=== PATIENT | male | born 1940 | race Caucasian/White ===

== ENCOUNTER 2024-12-08 16:28 | Inpatient (IN) | payer MEDICARE, SELFPAY ==
[2024-12-08] VITALS (9 sets, daily range): BP systolic 000–139; BP diastolic 00–63; PULSE 0–108; RESP 14–20; TEMP 36.8–36.9; O2SAT 0–100; BMI 22.4
--- NOTE | ~2024-12-08 | XR_ITS ---
EXAMINATION: XR CHEST CLINICAL INFORMATION: fever COMPARISON: None available. TECHNIQUE: Frontal view of the chest was obtained. FINDINGS: Pulmonary reticular pattern. Elevated left hemidiaphragm. No gross pleural effusion or pneumothorax. Cardiomediastinal silhouette demonstrates calcified plaque Arctic arch. Mild multilevel thoracic spondylosis. Degenerative changes shoulders. Gas filled prominent intestine no fully included. XR/XR chest 1V IMPRESSION: Chronic interstitial lung disease with questionable mild interstitial lung edema versus small airway inflammatory disease. Electronically signed by: Wilver Hernandez MD 12/11/2024 08:25 AM [facility]
--- NOTE | ~2024-12-08 | XR_ITS ---
EXAMINATION: XR CHEST 1 VIEW HISTORY: cough COMPARISON: Comparison is made with the prior examination dated 12/11/2024. FINDINGS: A single AP portable view of the chest performed at 9:43 AM is submitted. The lungs are expanded and clear. There is no pleural effusion, pneumothorax, or pulmonary vascular congestion. The heart is normal in size. There is mild degenerative disc disease of the spine. XR/XR chest 1V IMPRESSION: No acute cardiopulmonary abnormality. Electronically signed by: Rodri Lawson MD 12/15/2024 10:04 AM [facility]
--- NOTE | 2024-12-08 16:42 | ED_ITS ---
HPI - Altered Mental Status General Chief Complaint: Altered Mental Status Stated Complaint: aggressive behavior from snf Time Seen by Provider: 12/08/24 16:41 Source: patient Mode of arrival: ambulatory Limitations: no limitations History of Present Illness ED Provider: HPI narrative: Patient with history of dementia just released from [facility] where he was admitted from 12/02 till 12/08 for frequent falls workup was negative and sent to group home where he was aggressive to the staff and came back to the emergency room Related Data Allergies Allergy/AdvReac Type Severity Reaction Status Date / Time No Known Allergies Allergy Verified 12/08/24 17:54 Review of Systems 2 Review of Systems: Yes Unobtainable due to mental status PMF Social History Social History Unable to assess alcohol history related to: Unable to respond Use of substances other than those prescribed or required for medical reasons: Unable to respond Advance Directives: No Advance Directives Information Provided: No Physical Exam ED Vital Signs: Vital Signs - 24 hr 12/08/24 16:52 12/08/24 17:45 12/08/24 17:50 Temperature Pulse Rate 103 H 108 H 107 H Respiratory Rate 16 20 20 Blood Pressure 139/62 Pulse Oximetry 100 100 100 Oxygen Delivery Method Room Air Room Air Room Air 12/08/24 18:00 12/08/24 18:15 12/08/24 19:05 Temperature Pulse Rate 92 99 88 Respiratory Rate 16 14 16 Blood Pressure 134/63 118/54 L 110/59 L Pulse Oximetry 100 100 100 Oxygen Delivery Method Room Air Room Air Room Air 12/08/24 21:22 12/08/24 23:26 12/09/24 01:29 Temperature 98.5 F 98.2 F 98.8 F Pulse Rate 92 95 94 Respiratory Rate 18 16 18 Blood Pressure 107/51 L 116/53 L 118/50 L Pulse Oximetry 100 100 100 Oxygen Delivery Method Room Air Room Air Room Air BMI result Body Mass Index 22.4 Appearance: Alert. Oriented X1-2. No acute distress. Eyes: PERRLA, No Nystagmus ENT: Pharynx normal. Oral Mucosa moist Neck: Normal inspection. Neck supple. CVS: Normal heart rate and rhythm. Pulses normal. Respiratory: No respiratory distress. Equal air entry bilateral, no wheezing/rales/rhonchi Abdomen: Soft and nontender. Bowel sounds are present, no mass palpable, no CVA tenderness Skin: Skin warm and dry. Normal skin color. Normal skin turgor. Extremities: No lower extremity edema. No calf tenderness Neuro: Oriented X 1-2. No motor deficit. No sensory deficit.No cerebellar signs , cranial nerves II-XII intact Medications Administered Discontinued Medications Generic Name Dose Route Start Last Admin Trade Name Lorenzoq PRN Reason Stop Dose Admin Lorazepam 2 mg 12/08/24 17:28 12/08/24 17:30 Lorazepam 2 Mg/Ml Vial IM 12/08/24 17:29 2 mg ONCE ONE Administration Olanzapine 5 mg 12/08/24 17:15 12/08/24 17:21 Olanzapine 5 Mg Tablet PO 12/08/24 17:16 5 mg ONCE ONE Administration Medical Decision Making Medical Decision Making [facility] Narrative: Patient with dementia with psychotic behavior responded to olanzapine which was given in the ER. Will consult case team for placement Lab Data [facility] Lab Attestation statement: I reviewed the patient's lab results. 12/08/24 23:32 12/08/24 23:32 Labs: Lab Results 12/08/24 Range/Units 23:32 WBC 5.9 (4.8-10.8) X10*3/uL RBC 3.20 L (4.60-5.80) X10*6/uL Hgb 10.2 L (14.0-18.0) g/dl Hct 29.3 L (42.0-52.0) % MCV 91.6 (80.0-98.0) fL MCH 31.9 (27.0-33.0) pg MCHC 34.8 (31.0-36.0) g/dl RDW 13.2 (11.0-16.0) % Plt Count 191 (160-400) X10*3/uL MPV 9.7 (9.4-12.4) fL Immature Gran % (Auto) 0.3 (0.0-0.4) % Neut % (Auto) 55.5 (45-73) % Lymph % (Auto) 23.6 (20-40) % Quay % (Auto) 13.3 H (2-11) % Eos % (Auto) 7.0 H (0-4) % Baso % (Auto) 0.3 (0-2) % Lymph # (Auto) 1.4 (1.2-4.9) X10*3/uL Quay # (Auto) 0.8 (0.1-1.2) X10*3/uL Eos # (Auto) 0.4 (0.0-0.4) X10*3/uL Baso # (Auto) 0.0 (0.0-0.2) X10*3/uL Abs Immat Gran (auto) 0.02 (0.00-0.03) X10*3/uL Absolute Neuts (auto) 3.2 (2.0-8.3) x10*3/uL Absolute Nucleated RBC 0.000 (0.0-0.012) X10*3/uL Nucleated RBC % (auto) 0.0 (0.0-0.2) /100WBC Sodium 142 (135-145) mmol/L Potassium 3.8 (3.3-5.1) mmol/L Chloride 109 H (96-108) mmol/L Carbon Dioxide 27 (22-29) mmol/L Anion Gap 10 L (12-20) BUN 15 (9-16) mg/dL Creatinine 0.79 (0.5-1.4) mg/dL Estim Creat Clear Calc 63.8 Estimated GFR > 60 Random Glucose 117 H (60-115) mg/dL Calcium 8.5 (8.4-10.2) mg/dL Total Bilirubin 0.3 (0.0-1.0) mg/dL AST 27 (5-37) U/L ALT 22 (0-40) U/L Alkaline Phosphatase 107 (39-117) U/L Total Protein 5.8 L (6.5-8.0) g/dL Albumin 3.3 L (3.5-5.0) g/dL Independent Interpretation I performed an independent interpretation of an: EKG Interpretation: Normal sinus rhythm heart rate 91 beats per minute normal interval normal axis no acute STT wave changes no acute ischemia Discharge Plan Discharge Clinical Impression: Dementia of Alzheimer's type with behavioral disturbance Patient Disposition: Still a Patient Print Language: Moroccan
[2024-12-08] MEDS: OLANZapine 5 MG TABLET PO (17:21)
[2024-12-08] MEDS: LORazepam 2 MG/ML VIAL IM (17:30)
--- NOTE | 2024-12-08 17:30 | PC.NURSE ---
Pt. medicated with 2mg Ativan IM d/t aggression towards staff. Pt. completely unable to be redirected, wandering, swinging at and punching staff.
--- NOTE | 2024-12-08 17:31 | PC.NURSE ---
Soft restraints applied to FAYN wrists for pt. and staff safety. Jj Khan sitting at bedside.
--- NOTE | 2024-12-08 19:06 | PC.NURSE ---
assumed care of pt, soft restraints removed at this time, patient resting quietly no apparent distress, patient observer at bedside
--- NOTE | 2024-12-08 22:57 | ECG_ITS ---
Test Reason : ALTERED MENTAL STATUS Blood Pressure : */* mmHG Vent. Rate : 91 BPM Atrial Rate : 91 BPM P-R Int : 144 ms QRS Dur : 82 ms QT Int : 362 ms P-R-T Axes : 31 7 53 degrees QTcB Int : 445 ms Normal sinus rhythm Low voltage QRS Borderline ECG No previous ECGs available Referred By: Luke Mccormack Electronically Signed By: ABRAN IBRAHIM
[2024-12-08 23:37] LABS: MANUAL DIFF FLAG NO
[2024-12-08 23:38] LABS: Basophils Percent Auto 0.3 % (0-2); Eosinophils Absolute Auto 0.4 X10*3/uL (0.0-0.4); Hematocrit 29.3 % (42.0-52.0); Hemoglobin 10.2 g/dl (14.0-18.0); Imm Gran Abs Auto 0.02 X10*3/uL (0.00-0.03); Imm Gran Pct Auto 0.3 % (0.0-0.4); Lymphocytes Absolute Auto 1.4 X10*3/uL (1.2-4.9); Lymphocytes Percent Auto 23.6 % (20-40); Mean Corpuscular HGB Conc 34.8 g/dl (31.0-36.0); Mean Corpuscular Hemoglobin 31.9 pg (27.0-33.0); Mean Corpuscular Volume 91.6 fL (80.0-98.0); Mean Platelet Volume 9.7 fL (9.4-12.4); Monocytes Absolute Auto 0.8 X10*3/uL (0.1-1.2); Monocytes Percent Auto 13.3 % (2-11); Neutrophils Absolute Auto 3.2 x10*3/uL (2.0-8.3); Neutrophils Percent Auto 55.5 % (45-73); Platelet Count 191 X10*3/uL (160-400); Red Cell Distribution Width 13.2 % (11.0-16.0); White Blood Count 5.9 X10*3/uL (4.8-10.8)
[2024-12-08 23:55] LABS: Alanine Aminotransferase 22 U/L (0-40); Albumin Level 3.3 g/dL (3.5-5.0); Alkaline Phosphatase 107 U/L (39-117); Anion Gap 10 (12-20); Aspartate Amino Transferase 27 U/L (5-37); Bilirubin Total 0.3 mg/dL (0.0-1.0); Blood Urea Nitrogen 15 mg/dL (9-16); Calcium 8.5 mg/dL (8.4-10.2); Carbon Dioxide 27 mmol/L (22-29); Chloride 109 mmol/L (96-108); Creatinine Clr Calc Pharmacy 63.8; Estimated Glomerular Filt Rate > 60; Glucose Random 117 mg/dL (60-115); Potassium 3.8 mmol/L (3.3-5.1); Sodium 142 mmol/L (135-145); Total Protein 5.8 g/dL (6.5-8.0)
[2024-12-09] VITALS (9 sets, daily range): BP systolic 112–158; BP diastolic 46–77; PULSE 72–94; RESP 12–18; TEMP 36.4–37.1; O2SAT 95–100
--- NOTE | 2024-12-09 01:40 | PC.NURSE ---
patient incont of urine, bed changed and ashlee care provided
--- NOTE | 2024-12-09 07:19 | PC.NURSE ---
Incontinent of urine, changed and repositioned. calm and cooperative
--- NOTE | 2024-12-09 08:33 | PC.NURSE ---
Ambulated patient in hallway. Patient with steady gait. Returned to room, resting comfortably in bed
[2024-12-09] MEDS: Memantine HCl 5 MG TABLET PO ×2 (09:57→20:04)
[2024-12-09] MEDS: Escitalopram Oxalate 10 MG TABLET PO (09:57)
[2024-12-09] MEDS: Rivastigmine Tartrate 1.5 MG CAPSULE PO (09:57)
[2024-12-09 10:15] LABS: Appearance Urine Clear; Color Urine Yellow; Glucose Urine UA Negative (Negative); Leukocyte Esterase Urine Trace (Negative); Nitrite Urine Negative (Negative); PH 7.5 (5.0-9.0); UMIC TRIGGER UACC YES; Urine Blood Negative (Negative); Urine Ketones Negative (Negative); Urine Protein Negative (Neg-Trace)
[2024-12-09 10:20] LABS: Bacteria Urine 2+ (None Seen); Hyaline Casts Urine 0-2 /LPF (0-2); RBC Urine 0-2 /HPF (0-2); Squamous Epithelial Cell Urine 0-2 /HPF (0-2); WBC Urine 0-5 /HPF (0-5)
--- NOTE | 2024-12-09 10:49 | PHA.MEDREC ---
Pharmacy Consult ? Medication Reconciliation Pharmacy has completed the medication reconciliation. Spoke to pt's daughter Laurie to confirm meds. Per pt's daughter, only taking lexapro 10 mg daily, trazodone 50 mg @1630, b complex daily, mg 200 mg @1630.
--- NOTE | 2024-12-09 11:18 | MHC.CM.PN ---
CM RECEIVED ED CONSULT. PT LIVES WITH SPOUSE, DAUGHTER YORDY IS HCP/POA. ALL INFORMATION WAS GLEANED FROM DAUGHTER VIA TELEPHONE PT UNABLE TO PROVIDE HX. PER DAUGHTER, PT WAS IN OBS AT [facility] FOR 3-4 DAYS THEN DC YESTERDAY TO [facility] FOR STR. PT WAS ONLY THERE AN HOUR OR 2 AND BECAME AGITATED WITH STAFF, AGGRESSIVE. PT IS FUNCTIONALLY INDEPENDENT/TOILETS SELF BUT HAS BEEN EXPERIENCING FALLS OF LATE. PT HAS APHAGIA. DP: P.T. WILL EVAL PT TO DETERMINE NEEDS. PT WILL NEED TO BE FREE OF PRN ANTIPSYCHOTICS FOR PLACEMENT. RETURN REFERRAL SENT TO [facility]. PT WILL NEED BLS TRANSPORT. CM WILL CONTINUE TO FOLLOW.
[2024-12-09] MEDS: cefuroxime axetiL 500 MG TABLET PO ×2 (11:29→20:03)
[2024-12-09 12:22] LABS: Ammonia 26 umol/L (13-55)
[2024-12-09 12:56] LABS: TSH reflex Free T4 3.59 uIU/mL (0.32-4.0)
[2024-12-09] MEDS: traZODone HCL 50 MG TABLET PO (16:23)
[2024-12-09] MEDS: OLANZapine 5 MG TABLET PO (16:23)
--- NOTE | 2024-12-09 16:30 | PC.NURSE ---
Patient easily re-directable with occasional fluids/ food. Patient able to ambualte in hallway with assist.
[2024-12-09] MEDS: QUEtiapine Fumarate 25 MG TABLET PO ×2 (17:30→18:10)
--- NOTE | 2024-12-09 17:38 | PC.NURSE ---
Assisted to ambulate in hallway
[2024-12-09] MEDS: Magnesium Oxide 400 MG TABLET 200 MG PO (20:03)
[2024-12-10 06:27] VITALS: BP 99/67; PULSE 83; RESP 21; TEMP 36.2; O2SAT 95
[2024-12-10] MEDS: Escitalopram Oxalate 10 MG TABLET PO (11:44)
[2024-12-10] MEDS: Multivitamin TABLET 1 TAB PO (11:44)
[2024-12-10] MEDS: cefuroxime axetiL 500 MG TABLET PO ×2 (11:44→21:21)
[2024-12-10] MEDS: Memantine HCl 5 MG TABLET PO ×2 (11:44→21:20)
[2024-12-10 11:50] VITALS: BP 111/62; PULSE 76; RESP 18; TEMP 36.7; O2SAT 99
[2024-12-10] MEDS: Rivastigmine Tartrate 1.5 MG CAPSULE PO (16:13)
[2024-12-10] MEDS: traZODone HCL 50 MG TABLET PO (18:11)
[2024-12-10] MEDS: OLANZapine 5 MG TABLET PO (18:11)
[2024-12-10 18:15] VITALS: BP 115/55; PULSE 95; RESP 18; TEMP 36.8; O2SAT 96
[2024-12-10] MEDS: Magnesium Oxide 400 MG TABLET 200 MG PO (21:20)
[2024-12-10] MEDS: QUEtiapine Fumarate 25 MG TABLET PO (21:25)
[2024-12-10 22:30] VITALS: TEMP 37.6
--- NOTE | 2024-12-10 23:33 | PC.NURSE ---
camera placed in room. VMT called
[2024-12-11] VITALS (8 sets, daily range): BP systolic 105–151; BP diastolic 54–81; PULSE 82–109; RESP 12–20; TEMP 36.2–38.2; O2SAT 96–100
[2024-12-11] MEDS: OLANZapine 10 MG TABLET PO (02:57)
--- NOTE | 2024-12-11 06:04 | PC.NURSE ---
rectaly 100.7, slightly diaphoretic. MD tam notified. tylenol ordered, nasal swab ordered
[2024-12-11] MEDS: Acetaminophen 325 MG TABLET 975 MG PO (06:17)
[2024-12-11 06:49] LABS: Influenza A PCR NEGATIVE (Negative); Influenza B PCR NEGATIVE (Negative); Resp Syncy Virus RNA Qual PCR NEGATIVE (Negative); SARS COV2 PCR INHOUSE NEGATIVE (Negative)
[2024-12-11] MEDS: Lactated Ringers 1,000 ML 999 ML IV (07:22)
[2024-12-11 07:29] LABS: Basophils Percent Auto 0.3 % (0-2); Eosinophils Absolute Auto 0.1 X10*3/uL (0.0-0.4); Eosinophils Percent Auto 0.5 % (0-4); Hematocrit 38.1 % (42.0-52.0); Imm Gran Abs Auto 0.04 X10*3/uL (0.00-0.03); Imm Gran Pct Auto 0.4 % (0.0-0.4); Lymphocytes Absolute Auto 0.3 X10*3/uL (1.2-4.9); Lymphocytes Percent Auto 3.6 % (20-40); MANUAL DIFF FLAG SCAN; Mean Corpuscular HGB Conc 34.9 g/dl (31.0-36.0); Mean Platelet Volume 9.6 fL (9.4-12.4); Monocytes Absolute Auto 0.4 X10*3/uL (0.1-1.2); Monocytes Percent Auto 4.7 % (2-11); Neutrophils Absolute Auto 8.5 x10*3/uL (2.0-8.3); Neutrophils Percent Auto 90.5 % (45-73); Platelet Count 243 X10*3/uL (160-400); Red Blood Count 4.15 X10*6/uL (4.60-5.80); Red Cell Distribution Width 13.2 % (11.0-16.0); SCAN SMEAR FLAG 1; White Blood Count 9.4 X10*3/uL (4.8-10.8)
[2024-12-11 07:33] LABS: Hemoglobin 13.3 g/dl (14.0-18.0)
[2024-12-11 07:34] LABS: Mean Corpuscular Volume 91.8 fL (80.0-98.0)
[2024-12-11 07:41] LABS: Alanine Aminotransferase 78 U/L (0-40); Alkaline Phosphatase 108 U/L (39-117); Anion Gap 15 (12-20); Aspartate Amino Transferase 62 U/L (5-37); Bilirubin Direct 0.3 mg/dL (0.0-0.5); Bilirubin Total 0.9 mg/dL (0.0-1.0); Blood Urea Nitrogen 28 mg/dL (9-16); Calcium 9.6 mg/dL (8.4-10.2); Carbon Dioxide 30 mmol/L (22-29); Chloride 103 mmol/L (96-108); Creatinine Clr Calc Pharmacy 50.4; Estimated Glomerular Filt Rate > 60; Glucose Random 106 mg/dL (60-115); Potassium 4.5 mmol/L (3.3-5.1); Sodium 143 mmol/L (135-145); Total Protein 7.4 g/dL (6.5-8.0)
[2024-12-11 07:55] LABS: SLIDE REVIEW VERIFIED
--- NOTE | 2024-12-11 08:27 | PC.NURSE ---
assumed care of patient at 0700, patient is alert to self, wakes with verbal stimuli. per prev RN patient febrile, given tylenol. patient now afebrile, this RN started #20 in the L upper arm for LR bolus per DEC. resp even and unlabored, skin dry and intact. patient remains somnolant
[2024-12-11 08:55] LABS: CDiff Gene PCR NEGATIVE (Negative)
[2024-12-11] MEDS: cefuroxime axetiL 500 MG TABLET PO ×2 (09:12→20:16)
[2024-12-11] MEDS: Multivitamin TABLET 1 TAB PO (09:13)
[2024-12-11] MEDS: Escitalopram Oxalate 10 MG TABLET PO (09:13)
[2024-12-11] MEDS: Memantine HCl 5 MG TABLET PO ×2 (09:13→20:16)
--- NOTE | 2024-12-11 10:46 | PC.NURSE ---
patient moved into hospital bed for comfort, bed set in lowest position, safety alarm on, tele sitter in place
--- NOTE | 2024-12-11 14:52 | MHC.CM.ED ---
Patient remains in ER. Received notification this morning that patient might be admitted due to fever. Additional work up essentially negative. Psych consult ordered by Valeria MOY for medication recommendations d/t agitation. Clinical updates sent to [facility]. Continue to monitor for d/c needs.
[2024-12-11] MEDS: OLANZapine 5 MG TABLET PO (15:47)
[2024-12-11] MEDS: traZODone HCL 50 MG TABLET PO (15:47)
--- NOTE | 2024-12-11 15:56 | PC.NURSE ---
patient has remained afebrile, no other episodes of diarrhea. patient in hospital bed lowest locked position for safety. patient keeps repeating I love you and thank you. patient reassured he is safe and taken care of while in hospital. patient medicated per DEC, meds crushed in pudding.
--- NOTE | 2024-12-11 17:22 | PC.NURSE ---
this RN repositioned patient in bed, fed patient vanilla ice cream as requested. patient is awake and alert to self. resp even and unlabored.
--- NOTE | 2024-12-11 20:10 | PC.NURSE ---
called report to overflow RN January,
[2024-12-11] MEDS: Magnesium Oxide 400 MG TABLET 200 MG PO (20:16)
--- NOTE | 2024-12-11 22:31 | PC.NURSE ---
Patient arrived to overflow unit from ED. Patient confused but calm and sleeping. VSS, lungs clear on room air. Camera at bedside for safety. Repositioned patient to right side with pillows. Patient resting comfortably in bed at this time.
[2024-12-12] VITALS (8 sets, daily range): BP systolic 127–147; BP diastolic 56–70; PULSE 67–102; RESP 12–18; TEMP 36.5–36.8; O2SAT 93–98
[2024-12-12] MEDS: Multivitamin TABLET 1 TAB PO (08:48)
[2024-12-12] MEDS: QUEtiapine Fumarate 25 MG TABLET PO ×4 (08:48→21:21)
[2024-12-12] MEDS: Rivastigmine Tartrate 1.5 MG CAPSULE PO (08:48)
[2024-12-12] MEDS: Memantine HCl 5 MG TABLET PO (09:07)
[2024-12-12] MEDS: Escitalopram Oxalate 10 MG TABLET PO (09:07)
[2024-12-12] MEDS: cefuroxime axetiL 500 MG TABLET PO ×2 (09:07→20:27)
[2024-12-12 09:58] LABS: Appearance Urine Clear; Color Urine Yellow; Glucose Urine UA Negative (Negative); Leukocyte Esterase Urine Negative (Negative); Nitrite Urine Negative (Negative); PH 6.5 (5.0-9.0); Specific Gravity - Urine 1.025 (1.005-1.025); Urine Blood Negative (Negative); Urine Ketones Trace mg/dL (Negative); Urine Protein Trace mg/dL (Neg-Trace)
--- NOTE | 2024-12-12 11:06 | P.CNPS_ITS ---
History of Present Illness Date of Service: 12/12/2024 Chief Complaint: aggressive behavior from snf Reason for Consult: combative behaviors Discussed with referring provider: Yes Sources of Information: patient interviewed, chart reviewed and crisis/core team assessment reviewed HPI Narrative: Mr. Carney is an 84 year-old male with hx of dementia. He had been medically admitted to [facility] from 12/02-12/08/24 for medical work up for frequent falls and discharged to SNF for STR. He was sent back on the same day to [facility] due to combative behaviors. Pertinent labs include CBC with no leukocytosis, normocytic anemia on 12/08, repeat on 12/11 showed mild left shift, no leukocytosis. CMP without electrolyte abnormalities, BUN 15, Cr 0.79, creatinine clearance 63.8, LFT wnl. Repeat CMP on 12/11 showed increase BUN 28, Cr 1.00, mild elevation of LFT AST 62, ALT 78. He appeared to be dehydrated and was given IV lactated Ringer's 1000mls. UA was positive for bacteria, but no nitrites nor leukocytosis, culture was not completed but she was started on ceftin 500mg po BID. EKG with normal sinus rhythm, Qtc 445ms. Chest XR with chronic interstitial lung disease, with questionable interstitial lung edema. Pt seen in ED. His daughter, Laurie at bedside who provided most of collateral information. Pt presents with poor attention. He is not oriented to place, month, year, nor situation. He seems to have some difficulty recognizing his daughter or at least her name. He initially was asking to eat. He was not able to feed himself, getting confused if food was liquid o solid, grabing something, putting it down, grabbing something else. His speech with expressive and receptive aphasia. Per daughter, aphasia has been present for some years along with poor orientation and forgetfulness. She reports he was very sedated when he tried olanzapine scheduled. She reports tremors (although wonder if more myoclonus movement) with namenda and exelon as describes as visible jerk like movement of upper extremities. Past Psychiatric History: Inpt: none OP: none PCP prescribing psychotropic medications including olazanpine, seroquel, Medical Evaluation Reviewed: Yes Review of Systems Review of Systems Yes Unobtainable due to mental status Diagnostics Vital Signs (24Hr): Vital Signs - 24 hr 12/11/24 11:39 02/24/25 14:36 12/11/24 20:15 Temperature 98.4 F 97.2 F 98.6 F Pulse Rate 82 87 109 H Respiratory Rate 12 16 20 Blood Pressure 151/67 H 105/54 L 136/81 Pulse Oximetry 100 98 96 Oxygen Delivery Method Room Air Room Air Room Air 12/11/24 22:18 12/12/24 06:00 12/12/24 09:24 Temperature 98.2 F 98.0 F 97.7 F Pulse Rate 97 81 81 Respiratory Rate 16 16 16 Blood Pressure 110/78 130/64 128/65 Pulse Oximetry 98 98 98 Oxygen Delivery Method Room Air Room Air Room Air BMI result Body Mass Index 22.4 Labs 12/11/24 07:18 12/12/24 11:25 Labs: Laboratory Results - last 48 hr 12/11/24 12/11/24 12/11/24 06:07 07:09 07:18 WBC 9.4 RBC 4.15 L D Hgb 13.3 L D Hct 38.1 L D MCV 91.8 MCH 32.0 MCHC 34.9 RDW 13.2 Plt Count 243 D MPV 9.6 Immature Gran % (Auto) 0.4 Neut % (Auto) 90.5 H Lymph % (Auto) 3.6 L Josephine % (Auto) 4.7 Eos % (Auto) 0.5 Baso % (Auto) 0.3 Lymph # (Auto) 0.3 L Josephine # (Auto) 0.4 Eos # (Auto) 0.1 Baso # (Auto) 0.0 Abs Immat Gran (auto) 0.04 H Absolute Neuts (auto) 8.5 H Absolute Nucleated RBC 0.000 Nucleated RBC % (auto) 0.0 Smear Tech's Comments VERIFIED Sodium 143 Potassium 4.5 Chloride 103 Carbon Dioxide 30 H Anion Gap 15 BUN 28 H Creatinine 1.00 Estim Creat Clear Calc 50.4 Estimated GFR > 60 Random Glucose 106 Calcium 9.6 D Total Bilirubin 0.9 Direct Bilirubin 0.3 AST 62 H ALT 78 H Alkaline Phosphatase 108 Total Protein 7.4 Albumin 4.0 Urine Color Urine Appearance Urine pH Ur Specific [place] Urine Protein Urine Glucose (UA) Urine Ketones Urine Blood Urine Nitrite Ur Leukocyte Esterase C. difficile Tox B Gene NEGATIVE Influenza Type A (PCR) NEGATIVE Influenza Type B (PCR) NEGATIVE RSV RNA Qual (PCR) NEGATIVE SARS-CoV-2 RNA (RT-PCR) NEGATIVE 12/12/24 09:00 WBC RBC Hgb Hct MCV MCH MCHC RDW Plt Count MPV Immature Gran % (Auto) Neut % (Auto) Lymph % (Auto) Josephine % (Auto) Eos % (Auto) Baso % (Auto) Lymph # (Auto) Josephine # (Auto) Eos # (Auto) Baso # (Auto) Abs Immat Gran (auto) Absolute Neuts (auto) Absolute Nucleated RBC Nucleated RBC % (auto) Smear Tech's Comments Sodium Potassium Chloride Carbon Dioxide Anion Gap BUN Creatinine Estim Creat Clear Calc Estimated GFR Random Glucose Calcium Total Bilirubin Direct Bilirubin AST ALT Alkaline Phosphatase Total Protein Albumin Urine Color Yellow Urine Appearance Clear Urine pH 6.5 Ur Specific [place] 1.025 Urine Protein Trace Urine Glucose (UA) Negative Urine Ketones Trace Urine Blood Negative Urine Nitrite Negative Ur Leukocyte Esterase Negative C. difficile Tox B Gene Influenza Type A (PCR) Influenza Type B (PCR) RSV RNA Qual (PCR) SARS-CoV-2 RNA (RT-PCR) Imaging Radiology Impressions: ITS Impressions Chest X-Ray 12/11/24 06:56 IMPRESSION: Chronic interstitial lung disease with questionable mild interstitial lung edema versus small airway inflammatory disease. Electronically signed by: Wilver Hernandez MD 12/11/2024 08:25 AM [facility] Mental Status Exam Mental Status Exam Narrative: Appearance: wearing hospital gown, fair hygiene, thin, but not malnourished. In NAD but restless Behavior: poor attention at times looking at this scenario writer and saying I love you, attempting to kiss this scenario writer's hand Psychomotor: restless, not combative Speech: mumbles, regular tone/rhythm, spontaneous TP: expressive and some degree of receptive aphasia/ derailed TC: wanting food, to wanting to hold hands and kiss scenario writer Mood: good Affect: restless, periods of smiling, then mildly irritable SI: no HI: none VH/AH: appears internally preoccupied Delusions:somewhat suspicious Insight/judgment: impaired x2 Memory/cog: alert, not oriented to place, month year nor situation. Medications Medications Current Medications Cefuroxime Axetil (Cefuroxime Axetil 500 Mg Tablet) 500 mg PO BID GABRIELLA Last Admin: 12/12/24 09:07 Dose: 500 mg Escitalopram Oxalate (Escitalopram Oxalate 10 Mg Tablet) 10 mg PO DAILY [facility] Last Admin: 12/12/24 09:07 Dose: 10 mg Magnesium Oxide (Magnesium Oxide 400 Mg Tablet) 200 mg PO BEDTIME [facility] Last Admin: 12/11/24 20:16 Dose: 200 mg Memantine (Memantine Hcl 5 Mg Tablet) 5 mg PO BID [facility] Last Admin: 12/12/24 09:07 Dose: 5 mg Multivitamins/Vitamin C (Multivitamin Tablet) 1 tab PO DAILY [facility] Last Admin: 12/12/24 08:48 Dose: 1 tab Olanzapine (Olanzapine 5 Mg Tablet) 5 mg PO DAILY@1630 [facility] Last Admin: 12/11/24 15:47 Dose: 5 mg Quetiapine Fumarate (Quetiapine Fumarate 25 Mg Tablet) 25 mg PO DAILY PRN PRN Reason: Anxiety, agitation Last Admin: 12/12/24 08:48 Dose: 25 mg Rivastigmine Tartrate (Rivastigmine Tartrate 1.5 Mg Capsule) 1.5 mg PO DAILY [facility] Last Admin: 12/12/24 08:48 Dose: 1.5 mg Trazodone HCl (Trazodone Hcl 50 Mg Tablet) 50 mg PO DAILY@1630 [facility] Last Admin: 12/11/24 15:47 Dose: 50 mg Allergies Allergies Allergy/AdvReac Type Severity Reaction Status Date / Time No Known Allergies Allergy Verified 12/08/24 17:54 Assessment & Plan Assessment & Plan (1) Major neurocognitive disorder: Status: Acute Code(s): F03.90 - Unspecified dementia, unspecified severity, without behavioral disturbance, psychotic disturbance, mood disturbance, and anxiety (2) Delirium: Status: Acute Code(s): R41.0 - Disorientation, unspecified Plan Mr. Burnett is an 84 year-old male with hx of dementia, probably AD. He was brought via EMS same day he went to [facility] due to combative behaviors. He presents with s/s of delirium superimposed on dementia. He is currently now able to engage in STR due to increased confusions and poor attention r/t delirium. After discussing risks, benefits and alternative treatment options with daughter, who is HCP, agreed to d/c olanzapine as she reports he was overly sedated and dizzy,she also reports side effects with exelon and namenda and would like him to be off those two medications as well. Will scheduled seroquel 25mg po TID, add prn seroquel 25mg po q6h prn agitation. PLAN 1. continue management of delirium care- avoid oversedation, encourage proper hydration as he is not able to verbalize need for it and does need more assistance eating. 2. seroquel 25mg po TID, seroquel 25mg po q6h prn agitation, monitor oversedation, hold seroquel if pt oversedated. 3. Pt does not have capacity to make medical decisions- invoke HCP if one is available. 4. d/c exelon, d/c namenda per daughter he had side effects with these medications. Total time managing care of this patient today ____ minutes.
--- NOTE | 2024-12-12 12:02 | MHC.CM.ED ---
Patient remains in ER overflow. Received telephone call from patient's daughter, Laurie. Patient was at [facility] and d/c'd to [facility]. Within 2 hours patient returned to [facility] due to behaviors. Laurie feels patient doesn't need meds at home. Laurie also verbalizes she doesn't want the patient to receive Zyprexa because he gets all the side effects. T/W explained psych consult was pending with Jeny returned item clerk. Also explained Laurie's contact info would be provided to patient. Laurie feels the facility aggravated patient by having someone walk behind him with a wheelchair while he was walking around the unit. Staff also tried to get patient back to his room by grabbing his arm, and patient didn't like that. Continue to monitor for d/c needs.
[2024-12-12 12:03] LABS: Albumin Level 3.7 g/dL (3.5-5.0); Alkaline Phosphatase 104 U/L (39-117); Anion Gap 11 (12-20); Aspartate Amino Transferase 53 U/L (5-37); Bilirubin Total 0.6 mg/dL (0.0-1.0); Blood Urea Nitrogen 28 mg/dL (9-16); Calcium 8.9 mg/dL (8.4-10.2); Carbon Dioxide 25 mmol/L (22-29); Chloride 108 mmol/L (96-108); Creatinine Clr Calc Pharmacy 63.8; Estimated Glomerular Filt Rate > 60; Glucose Random 78 mg/dL (60-115); Potassium 4.2 mmol/L (3.3-5.1); Sodium 140 mmol/L (135-145); Total Protein 6.9 g/dL (6.5-8.0)
[2024-12-12 12:34] LABS: Alanine Aminotransferase 66 U/L (0-40)
[2024-12-12 14:32] LABS: Ammonia 29 umol/L (13-55)
[2024-12-12] MEDS: traZODone HCL 50 MG TABLET PO (16:24)
[2024-12-12] MEDS: Magnesium Oxide 400 MG TABLET 200 MG PO (20:27)
--- NOTE | 2024-12-12 21:59 | PC.NURSE ---
assumed care of pt 1930, pt is on constant trying to get oob, able to verbally redirect for few minutes and pt back to removing clothing and getting oob. bed alarm and vmt on, tech is on constant 1:1 with pt for safety, given 2100 dose of po seroquel with minimal effect, credit charge authorizer made aware of need for 1:1. given prn 1 hour after with no affect. pt continues to be restless and now becoming agitated. grocery packer and Donna MOY made aware.
[2024-12-12] MEDS: OLANZapine 10 MG TABLET PO (22:11)
--- NOTE | 2024-12-12 22:38 | PC.NURSE ---
rachael reported did not note pt urinated since their shift at 1500, this RN did not note any urinary incontinence since arrival at 1930. offered pt urinal multiple times with uo. bladder scan showed >614 mL. mar brown made aware. verbal order for straight cath. 400mL removed. pt became combative during cath. pt now resting in bed, tech on 1:1 and vmt/bed alarm on.
[2024-12-12] MEDS: Ziprasidone Mesylate 20 MG VIAL 10 MG IM (23:00)
--- NOTE | 2024-12-12 23:00 | PC.NURSE ---
pt became combative with staff, is confused unable to redirect. continuously trying to get oob. efforts of offering food, water, PRN meds, constant sitter without improvement. Donna MOY and supervisor grinding made aware. tech remains on 1:1 d/t safety, rn discharge made aware again for need for 1:1. IM meds ordered by CHINMAY and given per dec.
--- NOTE | 2024-12-12 23:18 | PC.NURSE ---
at this time pt remains restless in bed, sitter staff now at bedside on 1:1.
[2024-12-13] VITALS: PULSE 91; RESP 16; O2SAT 98
--- NOTE | 2024-12-13 00:48 | PC.NURSE ---
Assumed care of pt at 2330. Pt is currently sleeping in bed. Breaths are even, regular, and unlabored. 1:1 sitter at bedside. Bed alarm on, camera at bedside for safety. No apparent distress noted at this time. Monitoring is ongoing.
--- NOTE | 2024-12-13 02:30 | PC.NURSE ---
Pt is awake. Not oriented. Speaking in jargon. Perineal care provided as pt incontinent of urine. Complete bed change provided. Sitter continues to be at bedside. Camera and bed alarm in place. Monitoring is ongoing.
[2024-12-13 05:31] VITALS: BP 132/62; PULSE 77; RESP 18; TEMP 36; O2SAT 100
--- NOTE | 2024-12-13 05:52 | PC.NURSE ---
Pt remained calm and at the beside awake for most of the night, speaking in jargon to self. Not oriented. Fell asleep at 0500. No apparent distress noted. Sitter at bedside. Monitoring ongoing.
--- NOTE | 2024-12-13 10:03 | PC.NURSE ---
Assumed care of pt at 0700. Pt resting in bed quietly, respirations even and unlabored, no signs of distress. Camera at bedside for safety. Call bingham within reach, all needs met at this time.
[2024-12-13] MEDS: Multivitamin TABLET 1 TAB PO (12:38)
[2024-12-13] MEDS: QUEtiapine Fumarate 25 MG TABLET PO ×4 (12:39→22:54)
[2024-12-13] MEDS: cefuroxime axetiL 500 MG TABLET PO ×2 (12:39→20:03)
[2024-12-13] MEDS: Escitalopram Oxalate 10 MG TABLET PO (12:39)
--- NOTE | 2024-12-13 12:50 | PC.NURSE ---
Morning meds delayed d/t pt sleeping/inability to safely swallow d/t pt dozing off. Pt now a/ox 0- alert, not oriented. Checked for incontinence, repositioned. Camera at bedside for safety. Call bingham within reach, all needs met at this time.
[2024-12-13 13:27] VITALS: BP 128/68; PULSE 96; RESP 20; TEMP 36.7; O2SAT 98
[2024-12-13] MEDS: traZODone HCL 50 MG TABLET PO (16:08)
[2024-12-13 18:01] VITALS: BP 151/67; PULSE 89; RESP 18; TEMP 36.2; O2SAT 97
[2024-12-13] MEDS: Magnesium Oxide 400 MG TABLET 200 MG PO (20:03)
--- NOTE | 2024-12-13 21:41 | PC.NURSE ---
Patient is alert to self only, confused. Patient medicated per MAR, meds crushed and given in pudding, tolerated well. Patient currently resting in a hospital bed, awake, not in acute distress. Camera at bedside for safety. Call bingham within reach, all needs met at this time.
--- NOTE | 2024-12-13 22:49 | PC.NURSE ---
Patient awake, noted to be restless in bed, patient medicated with Seroquel 25 mg PO PRN.
[2024-12-14] MEDS: OLANZapine 10 MG TABLET PO (00:04)
--- NOTE | 2024-12-14 00:09 | PC.NURSE ---
Patient continues to present with restless and agitative behavior. CHINMAY Sweet notified, patient medicated with Zyprexa 10 mg PO.
--- NOTE | 2024-12-14 00:55 | PC.NURSE ---
Patient repositioned in bed, covered with warm blanket, currently resting with his eyes closed, calm, respirations even and non-labored, RR 14, call bingham within patient's reach, bed alarm engaged, beside camera monitor at bedside.
[2024-12-14 05:57] VITALS: RESP 16; TEMP 36.7
--- NOTE | 2024-12-14 06:00 | MHC.EDTECH ---
Resting quietly, eyes closed, respirations even and unlabored.
--- NOTE | 2024-12-14 08:22 | PC.NURSE ---
Care of Pt assumed at change of shift. Pt rests quietly then wakes for breakfast. Pt eat small amount of breakfast then throws entire tray onto the floor. Pt requires frequent reminders to leave black cath tubing alone. TV provided for Pt and Pt is now resting quietly.
[2024-12-14] MEDS: Multivitamin TABLET 1 TAB PO (08:42)
[2024-12-14] MEDS: Escitalopram Oxalate 10 MG TABLET PO (08:42)
[2024-12-14] MEDS: QUEtiapine Fumarate 25 MG TABLET PO (08:42)
[2024-12-14] MEDS: cefuroxime axetiL 500 MG TABLET PO ×2 (08:42→21:07)
--- NOTE | 2024-12-14 09:27 | MHC.CM.ED ---
Addendum entered by Monika Fernandez 12/14/24 10:53: Patient's daughter/HCP, Laurie made aware. Original Note: Patient remains in ER overflow. Per Jeny, experimental technician, patient does not have capacity. HCP invoked by Dr Mathews. Patient received IM Geodon at midnight. Clinical updates sent to [place] via [facility]. It is unlikely that facility will accept patient back without being PRN antipsychotic free for 24-48 hours. Lalitha MOY aware. Continue to monitor for d/c needs.
[2024-12-14 09:40] VITALS: BP 141/65; PULSE 79; RESP 16; TEMP 36.4; O2SAT 98
[2024-12-14 12:03] LABS: Alanine Aminotransferase 44 U/L (0-40); Albumin Level 3.7 g/dL (3.5-5.0); Alkaline Phosphatase 99 U/L (39-117); Anion Gap 11 (12-20); Aspartate Amino Transferase 31 U/L (5-37); Bilirubin Total 0.6 mg/dL (0.0-1.0); Blood Urea Nitrogen 21 mg/dL (9-16); Calcium 8.8 mg/dL (8.4-10.2); Carbon Dioxide 26 mmol/L (22-29); Chloride 107 mmol/L (96-108); Creatinine Clr Calc Pharmacy 63.8; Estimated Glomerular Filt Rate > 60; Glucose Random 101 mg/dL (60-115); Potassium 4.1 mmol/L (3.3-5.1); Sodium 140 mmol/L (135-145); Total Protein 6.7 g/dL (6.5-8.0)
[2024-12-14] MEDS: traZODone HCL 50 MG TABLET PO (16:32)
[2024-12-14] MEDS: QUEtiapine Fumarate 50 MG TABLET PO ×2 (16:32→21:08)
[2024-12-14 17:22] VITALS: BP 151/70; PULSE 72; RESP 16; TEMP 36.1; O2SAT 95
--- NOTE | 2024-12-14 17:23 | MHC.EDTECH ---
This pct assumed care of Patient at 1500 ,vitals taken ,Patient was clean up and reposition in bed ,Patient refused dinner ,ate pudding and drank some josiah yousuf .
--- NOTE | 2024-12-14 17:38 | PM.PSYCN ---
History of Present Illness Date of Service: 12/14/24 Chief Complaint: aggressive behavior from snf Reason for Consult: combative behaviors Discussed with referring provider: Yes Sources of Information: patient interviewed, chart reviewed and crisis/core team assessment reviewed HPI Narrative: Interim: pt seen as follow up. He received geodone 10mg, olanzapine 10mg on 12/12/24 at from between 22:11 to 23:00 He was sedated most of 12/13 until later in the day. Today, pt continues to present with s/s consistent of delirium, poor attention, oriented only to self (although this may be baseline), his language with expressive and receptive aphasia. He is grabbing at things that are not there. He is not combative or violent, he attempts to get out of bed, and this has been bases for additional medication PRN. Past Psychiatric History: Inpt: none OP: none PCP prescribing psychotropic medications including olazanpine, seroquel, Review of Systems Review of Systems Yes Unobtainable due to mental status Diagnostics Vital Signs (24Hr): Vital Signs - 24 hr 12/13/24 18:01 12/14/24 05:57 12/14/24 09:40 Temperature 97.2 F 98.0 F 97.5 F Pulse Rate 89 79 Respiratory Rate 18 16 16 Blood Pressure 151/67 H 141/65 H Pulse Oximetry 97 98 Oxygen Delivery Method Room Air Room Air 12/14/24 17:22 Temperature 97.0 F Pulse Rate 72 Respiratory Rate 16 Blood Pressure 151/70 H Pulse Oximetry 95 Oxygen Delivery Method Room Air BMI result Body Mass Index 22.4 Labs 12/15/24 10:44 12/15/24 10:44 Labs: Laboratory Results - last 48 hr 12/14/24 11:35 Sodium 140 Potassium 4.1 Chloride 107 Carbon Dioxide 26 Anion Gap 11 L BUN 21 H Creatinine 0.79 Estim Creat Clear Calc 63.8 Estimated GFR > 60 Random Glucose 101 Calcium 8.8 Total Bilirubin 0.6 AST 31 ALT 44 H Alkaline Phosphatase 99 Total Protein 6.7 Albumin 3.7 Imaging Radiology Impressions: ITS Impressions Chest X-Ray 12/11/24 06:56 IMPRESSION: Chronic interstitial lung disease with questionable mild interstitial lung edema versus small airway inflammatory disease. Electronically signed by: Wilver Hernandez MD 12/11/2024 08:25 AM [facility] [place] Mental Status Exam Mental Status Exam Narrative: Appearance: wearing hospital gown, fair hygiene, thin, but not malnourished. In NAD but restless Behavior: poor attention at times looking at this software writer and saying I love you, attempting to kiss this software writer's hand Psychomotor: restless, not combative Speech: mumbles, regular tone/rhythm, spontaneous TP: expressive and some degree of receptive aphasia/ derailed TC: wanting food, to wanting to hold hands and kiss software writer Mood: good Affect: restless, periods of smiling, then mildly irritable SI: no HI: none VH/AH: appears internally preoccupied Delusions:somewhat suspicious Insight/judgment: impaired x2 Memory/cog: alert, not oriented to place, month year nor situation. Medications Medications Current Medications Cefuroxime Axetil (Cefuroxime Axetil 500 Mg Tablet) 500 mg PO BID [facility] Last Admin: 12/14/24 08:42 Dose: 500 mg Escitalopram Oxalate (Escitalopram Oxalate 10 Mg Tablet) 10 mg PO DAILY [facility] Last Admin: 12/14/24 08:42 Dose: 10 mg Magnesium Oxide (Magnesium Oxide 400 Mg Tablet) 200 mg PO BEDTIME [facility] Last Admin: 12/13/24 20:03 Dose: 200 mg Multivitamins/Vitamin C (Multivitamin Tablet) 1 tab PO DAILY [facility] Last Admin: 12/14/24 08:42 Dose: 1 tab Quetiapine Fumarate (Quetiapine Fumarate 25 Mg Tablet) 25 mg PO Q6H PRN PRN Reason: Anxiety, agitation Last Admin: 12/13/24 22:54 Dose: 25 mg Quetiapine Fumarate (Quetiapine Fumarate 50 Mg Tablet) 50 mg PO TID [facility] Last Admin: 12/14/24 16:32 Dose: 50 mg Trazodone HCl (Trazodone Hcl 50 Mg Tablet) 50 mg PO DAILY@1630 [facility] Last Admin: 12/14/24 16:32 Dose: 50 mg Allergies Allergies Allergy/AdvReac Type Severity Reaction Status Date / Time No Known Allergies Allergy Verified 12/08/24 17:54 Assessment & Plan Assessment & Plan (1) Major neurocognitive disorder: Status: Acute Code(s): F03.90 - Unspecified dementia, unspecified severity, without behavioral disturbance, psychotic disturbance, mood disturbance, and anxiety (2) Delirium: Status: Acute Code(s): R41.0 - Disorientation, unspecified Assessment and Plan: Not improvement noted in s/s of delirium. Plan Mr. Burnett is an 84 year-old male with hx of dementia, probably AD. He was brought via EMS same day he went to [facility] due to combative behaviors. He presents with s/s of delirium superimposed on dementia. He is currently now able to engage in STR due to increased confusions and poor attention r/t delirium. After discussing risks, benefits and alternative treatment options with daughter, who is HCP, agreed to d/c olanzapine as she reports he was overly sedated and dizzy,she also reports side effects with exelon and namenda and would like him to be off those two medications as well. Will scheduled seroquel 25mg po TID, add prn seroquel 25mg po q6h prn agitation. PLAN 1. continue management of delirium care- avoid oversedation, encourage proper hydration as he is not able to verbalize need for it and does need more assistance eating. 12/14/24--> pt continues to present as very confused, poor attention all symptoms of delirium, which does not seem to be resolving yet. I will increase seroquel to 50mg po TID, however, keeping in mind that delirium can last several weeks, avoid oversedation at night when he tries to ambulate. Monitor proper hydration as he can quickly dehydrate. CMP ordered today: BUN 21, Cr 0.79, no electrolyte abnormalities. Assist with mobility as possible. Total time managing care of this patient today ____ minutes.
[2024-12-14 20:44] VITALS: BP 126/63; PULSE 77; RESP 16; TEMP 36.3; O2SAT 97
[2024-12-14] MEDS: Magnesium Oxide 400 MG TABLET 200 MG PO (21:08)
[2024-12-15 05:31] VITALS: BP 167/83; PULSE 84; RESP 15; TEMP 36.8; O2SAT 96
--- NOTE | 2024-12-15 05:41 | MHC.EDTECH ---
This pct assumed care of Patient at 0300 ,Patient slept most of the night ,0600 vitals taken ,Patient was reposition and boosted up in bed ,warm blanket given ,all safety measure in Place .
--- NOTE | 2024-12-15 08:56 | PC.NURSE ---
Pt. very difficult to arouse. VSS. Sounds to have a lot of phlegm in upper airway that he is having difficulty coughing up, but will not allow this RN to suction. FLOOR ASSOCIATE notified
--- NOTE | 2024-12-15 09:48 | MHC.SLORD ---
Speech Language Pathology Order Status: Unable to perform swallow eval this a.m. Patient is obtunded, minimally responsive to sternal rub, and not safe to feed at this time. Per EMR, patient w/ difficulty coughing up phlegm and would not allow nursing staff to suction earlier today. Notified MD, RN, RD via [place]. Please contact PRACTICE CONSULTANT via [place] if PRACTICE CONSULTANT becomes more awake and alert so swallow eval can be re-attempted.
[2024-12-15 09:56] VITALS: BP 165/74; PULSE 93; RESP 16; TEMP 37.1; O2SAT 96
--- NOTE | 2024-12-15 09:56 | PC.NURSE ---
Labs and x-ray ordered per S. Jeff, CHRIS re: pt.'s decreased LOC
[2024-12-15 10:53] LABS: MANUAL DIFF FLAG NO
[2024-12-15 10:54] LABS: Basophils Percent Auto 0.2 % (0-2); Eosinophils Absolute Auto 0.2 X10*3/uL (0.0-0.4); Eosinophils Percent Auto 2.3 % (0-4); Hematocrit 36.8 % (42.0-52.0); Hemoglobin 12.7 g/dl (14.0-18.0); Imm Gran Abs Auto 0.03 X10*3/uL (0.00-0.03); Imm Gran Pct Auto 0.3 % (0.0-0.4); Lymphocytes Absolute Auto 1.2 X10*3/uL (1.2-4.9); Lymphocytes Percent Auto 12.1 % (20-40); Mean Corpuscular HGB Conc 34.5 g/dl (31.0-36.0); Mean Corpuscular Hemoglobin 32.1 pg (27.0-33.0); Mean Corpuscular Volume 92.9 fL (80.0-98.0); Mean Platelet Volume 9.6 fL (9.4-12.4); Monocytes Absolute Auto 0.9 X10*3/uL (0.1-1.2); Neutrophils Absolute Auto 7.8 x10*3/uL (2.0-8.3); Neutrophils Percent Auto 76.1 % (45-73); Platelet Count 229 X10*3/uL (160-400); Red Blood Count 3.96 X10*6/uL (4.60-5.80); Red Cell Distribution Width 13.2 % (11.0-16.0); White Blood Count 10.2 X10*3/uL (4.8-10.8)
[2024-12-15 11:09] LABS: Alanine Aminotransferase 33 U/L (0-40); Albumin Level 3.9 g/dL (3.5-5.0); Alkaline Phosphatase 114 U/L (39-117); Anion Gap 12 (12-20); Aspartate Amino Transferase 26 U/L (5-37); Bilirubin Total 0.9 mg/dL (0.0-1.0); Blood Urea Nitrogen 24 mg/dL (9-16); Calcium 9.3 mg/dL (8.4-10.2); Carbon Dioxide 28 mmol/L (22-29); Chloride 107 mmol/L (96-108); Creatinine Clr Calc Pharmacy 58.6; Estimated Glomerular Filt Rate > 60; Glucose Random 94 mg/dL (60-115); Potassium 4.5 mmol/L (3.3-5.1); Sodium 142 mmol/L (135-145); Total Protein 7.4 g/dL (6.5-8.0)
[2024-12-15 11:32] LABS: Influenza A PCR NEGATIVE (Negative); Influenza B PCR NEGATIVE (Negative); Resp Syncy Virus RNA Qual PCR NEGATIVE (Negative); SARS COV2 PCR INHOUSE NEGATIVE (Negative)
[2024-12-15] MEDS: QUEtiapine Fumarate 25 MG TABLET PO (11:50)
[2024-12-15 11:57] LABS: B Type Natriuretic Peptide < 10 pg/mL (<100)
--- NOTE | 2024-12-15 12:24 | P.CNPS_ITS ---
History of Present Illness Date of Service: 12/15/2024 Chief Complaint: aggressive behavior from snf Requesting physician: Lilli Aguilar Discussed with referring provider: Yes Sources of Information: patient interviewed, chart reviewed and crisis/core team assessment reviewed HPI Narrative: Interim Hx: No behavioral concerns last night, nor additional PRN medications given. Pt was somnolent this morning per RN and difficult to wake him up. When this staff writer saw him, he was alert, not somnolent. However, he continues to present as delirious. Perhaps, a bit more organized in terms of attention and purposeless behaviors trying to grab things that are not there. ED attending did ordered cbc and CMP and chest XR as pt sounds with increased secretions and concern for aspiration pneumonia. He has been afebrile. BP elavated SBP 165. Past Psychiatric History: Inpt: none OP: none PCP prescribing psychotropic medications including olazanpine, seroquel, Review of Systems Review of Systems Yes Unobtainable due to mental status Diagnostics Vital Signs (24Hr): Vital Signs - 24 hr 12/14/24 17:22 12/14/24 20:44 12/15/24 05:31 Temperature 97.0 F 97.4 F 98.2 F Pulse Rate 72 77 84 Respiratory Rate 16 16 15 Blood Pressure 151/70 H 126/63 167/83 H Pulse Oximetry 95 97 96 Oxygen Delivery Method Room Air Room Air Room Air 12/15/24 09:56 Temperature 98.8 F Pulse Rate 93 Respiratory Rate 16 Blood Pressure 165/74 H Pulse Oximetry 96 Oxygen Delivery Method Room Air BMI result Body Mass Index 22.4 Labs 12/15/24 10:44 12/15/24 10:44 Labs: Laboratory Results - last 48 hr 12/14/24 12/15/24 12/15/24 11:35 10:44 10:46 WBC 10.2 RBC 3.96 L Hgb 12.7 L Hct 36.8 L MCV 92.9 MCH 32.1 MCHC 34.5 RDW 13.2 Plt Count 229 MPV 9.6 Immature Gran % (Auto) 0.3 Neut % (Auto) 76.1 H Lymph % (Auto) 12.1 L [place] % (Auto) 9.0 Eos % (Auto) 2.3 Baso % (Auto) 0.2 Lymph # (Auto) 1.2 [place] # (Auto) 0.9 Eos # (Auto) 0.2 Baso # (Auto) 0.0 Abs Immat Gran (auto) 0.03 Absolute Neuts (auto) 7.8 Absolute Nucleated RBC 0.000 Nucleated RBC % (auto) 0.0 Sodium 140 142 Potassium 4.1 4.5 Chloride 107 107 Carbon Dioxide 26 28 Anion Gap 11 L 12 BUN 21 H 24 H Creatinine 0.79 0.86 Estim Creat Clear Calc 63.8 58.6 Estimated GFR > 60 > 60 Random Glucose 101 94 Calcium 8.8 9.3 Total Bilirubin 0.6 0.9 AST 31 26 ALT 44 H 33 Alkaline Phosphatase 99 114 B-Natriuretic Peptide < 10 Total Protein 6.7 7.4 Albumin 3.7 3.9 Influenza Type A (PCR) NEGATIVE Influenza Type B (PCR) NEGATIVE RSV RNA Qual (PCR) NEGATIVE SARS-CoV-2 RNA (RT-PCR) NEGATIVE Imaging Radiology Impressions: ITS Impressions Chest X-Ray 12/11/24 06:56 IMPRESSION: Chronic interstitial lung disease with questionable mild interstitial lung edema versus small airway inflammatory disease. Electronically signed by: Wilver Hernandez MD 12/11/2024 08:25 AM EST RP Chest X-Ray 12/15/24 09:43 IMPRESSION: No acute cardiopulmonary abnormality. Electronically signed by: Rodri Lawson MD 12/15/2024 10:04 AM EST RP Mental Status Exam Mental Status Exam Narrative: Appearance: wearing hospital gown, fair hygiene, thin, but not malnourished. In NAD but restless Behavior: poor attention at times looking at this staff writer and saying I love you, attempting to kiss this staff writer's hand Psychomotor: restless, not combative Speech: mumbles, regular tone/rhythm, spontaneous TP: expressive and some degree of receptive aphasia/ derailed TC: wanting food, to wanting to hold hands and kiss staff writer Mood: good Affect: restless, periods of smiling, then mildly irritable SI: no HI: none VH/AH: appears internally preoccupied Delusions:somewhat suspicious Insight/judgment: impaired x2 Memory/cog: alert, not oriented to place, month year nor situation. Medications Medications Current Medications Cefuroxime Axetil (Cefuroxime Axetil 500 Mg Tablet) 500 mg PO BID [facility] Last Admin: 12/15/24 09:34 Dose: Not Given Escitalopram Oxalate (Escitalopram Oxalate 10 Mg Tablet) 10 mg PO DAILY [facility] Last Admin: 12/15/24 09:34 Dose: Not Given Magnesium Oxide (Magnesium Oxide 400 Mg Tablet) 200 mg PO BEDTIME [facility] Last Admin: 12/14/24 21:08 Dose: 200 mg Multivitamins/Vitamin C (Multivitamin Tablet) 1 tab PO DAILY [facility] Last Admin: 12/15/24 09:34 Dose: Not Given Quetiapine Fumarate (Quetiapine Fumarate 25 Mg Tablet) 25 mg PO Q6H PRN PRN Reason: Anxiety, agitation Last Admin: 12/15/24 11:50 Dose: 25 mg Quetiapine Fumarate (Quetiapine Fumarate 50 Mg Tablet) 50 mg PO TID [facility] [place] Last Admin: 12/15/24 09:34 Dose: Not Given Trazodone HCl (Trazodone Hcl 50 Mg Tablet) 50 mg PO DAILY@1630 [facility] Last Admin: 12/14/24 16:32 Dose: 50 mg Allergies Allergies Allergy/AdvReac Type Severity Reaction Status Date / Time No Known Allergies Allergy Verified 12/08/24 17:54 Assessment & Plan Assessment & Plan (1) Major neurocognitive disorder: Status: Acute Code(s): F03.90 - Unspecified dementia, unspecified severity, without behavioral disturbance, psychotic disturbance, mood disturbance, and anxiety (2) Delirium: Status: Acute Code(s): R41.0 - Disorientation, unspecified Assessment and Plan: Not improvement noted in s/s of delirium. Plan Mr. Burnett is an 84 year-old male with hx of dementia, probably AD. He was brought via EMS same day he went to [facility] due to combative behaviors. He presents with s/s of delirium superimposed on dementia. He is currently now able to engage in STR due to increased confusions and poor attention r/t delirium. After discussing risks, benefits and alternative treatment options with daughter, who is HCP, agreed to d/c olanzapine as she reports he was overly sedated and dizzy,she also reports side effects with exelon and namenda and would like him to be off those two medications as well. Will scheduled seroquel 25mg po TID, add prn seroquel 25mg po q6h prn agitation. PLAN 1. continue management of delirium care- avoid oversedation, encourage proper hydration as he is not able to verbalize need for it and does need more assistance eating. 12/14/24--> pt continues to present as very confused, poor attention all symptoms of delirium, which does not seem to be resolving yet. I will increase seroquel to 50mg po TID, however, keeping in mind that delirium can last several weeks, avoid oversedation at night when he tries to ambulate. Monitor proper hydration as he can quickly dehydrate. CMP ordered today: BUN 21, Cr 0.79, no electrolyte abnormalities. Assist with mobility as possible. 12/15/24 continue seroquel 50mg po TID- HOLD if over sedation noted. AVOID OVERMEDICATION at night when he is attempting to ambulate. Judiciously maintain hydration and attempt to walk patient. If need IM medication for combative/aggressive behaviors (NOT FOR PATIENT ATTEMPTING TO GET OUT OF BED), use low dose of olanzapine 5mg q6h. NOTE that oversedation will be noted the following day, prolonging delirium as it increases risk of dehydration, normalization of circadian cycle. Total time managing care of this patient today __30__ minutes.
--- NOTE | 2024-12-15 14:43 | PC.NURSE ---
Per provider- no straw with liquids, and pills to be crushed in puree.
--- NOTE | 2024-12-15 15:05 | MHC.SL.SWA ---
Speech Pathologist Impression: Mild to Moderate Oralpharyngeal Dysphagia Risk of Aspiration Due to: Neurological Condition Reduced Cognition Dysphasia Diet Status: UPGRADE from NPO, start on NDD2 and HTL Liquid Consistency and Strategies for Safe Swallow: Liquid Intake Recommendation: Honey Thick Liquid Intake Strategies: Small Sips No Straws Solid Food Consistency: Dietary Recommendations: Grnd/Mech Altered (NDD2) Additional Modifications to Solid Foods: Patient presents with mild to moderate oropharyngeal dysphagia, in the setting of dementia. Patient requires direct supervision at meal time. He will need frequent cues for safe eating strategies and assistance feeding at times. Recommend a GROUND/MECH ALTERED (NDD2) diet for ease of mastication, as patient presents with missing teeth, and HONEY THICK liquids, pills CRUSHED in PUREE. Oral Medication Intake: Crushed with Puree Please contact the pharmacy regarding appropriate crushable or liquid drug formulations that are available whenever modified delivery is recommended. Compensatory Strategies and Precautions to be Taken for Safe Swallow: Sitting Upright (90 deg) Double Swallow No Straw Small Bites and Sips Alternate Liquids/Solids Rate of Ingestion Change Avoid Specific Foods Supervision While Eating and Drinking for Safe Swallow: Total Supervision (1:1) Foods to Avoid: [place] hard, dry, or sticky foods; mixed consistencies Swallowing Recommended Treatments: Compens. Strategy Educat. Recommendation for Speech: Inpatient Speech Therapy Comment: BLAST FURNACE BLOWER will continue to follow during inpatient stay to monitor tolerance of modified diet and re-assess for potential upgrade if appropriate. Frequency/Duration: Date Range for Service Req: Timeline to reassess: Relief Map Modeler Clinican/Clinical Fellow: No Supervisory Statement: I have reviewed and agree with the student/clinical fellow's documentation: N/A Speech Language Pathologist: Shelley Gamez M.A., CCC-BLAST FURNACE BLOWER
[2024-12-15] MEDS: QUEtiapine Fumarate 50 MG TABLET PO ×2 (16:22→20:03)
[2024-12-15] MEDS: traZODone HCL 50 MG TABLET PO (16:22)
[2024-12-15] MEDS: cefuroxime axetiL 500 MG TABLET PO (20:02)
[2024-12-15] MEDS: Magnesium Oxide 400 MG TABLET 200 MG PO (20:02)
--- NOTE | 2024-12-15 20:02 | MHC.EDTECH ---
Assumed care of Pt at 1900
[2024-12-15 20:39] VITALS: BP 110/63; PULSE 77; RESP 16; TEMP 36.4; O2SAT 96
[2024-12-16 06:00] VITALS: BP 127/70; PULSE 81; RESP 18; TEMP 36.8; O2SAT 97
[2024-12-16] MEDS: QUEtiapine Fumarate 50 MG TABLET PO ×3 (10:26→20:39)
[2024-12-16] MEDS: Multivitamin TABLET 1 TAB PO (10:27)
[2024-12-16] MEDS: cefuroxime axetiL 500 MG TABLET PO ×2 (10:27→20:38)
[2024-12-16] MEDS: Escitalopram Oxalate 10 MG TABLET PO (10:27)
--- NOTE | 2024-12-16 10:57 | PC.NURSE ---
pt initially sleeping- woke to verbal stimulus -alert to self only, speaking in full sentences but jibberish. rr equal/non labored, meds crushed and put in applesauce. pt black cath patient/draining clear yellow urine, fall precautions intact, pt had no c/o pain or discomfort, call bingham within reach, plan of care ongoing
[2024-12-16] MEDS: QUEtiapine Fumarate 25 MG TABLET PO (12:46)
--- NOTE | 2024-12-16 12:46 | PC.NURSE ---
pt has been agitated, patient safety camera has called due to patient attempting to climb over siderails, pt was medicated with PRN med, tech now at bedside feeding him lunch.
--- NOTE | 2024-12-16 13:24 | MHC.CM.ED ---
Patient remains in ER overflow. Remains delirous. Will need repeat PT eval when more clear. Patient's daughter, Laurie, updated via telephone at [phone]. Continue to monitor for d/c needs.
[2024-12-16 14:17] VITALS: BP 105/59; PULSE 74; RESP 18; TEMP 36.5; O2SAT 95
[2024-12-16] MEDS: traZODone HCL 50 MG TABLET PO (16:33)
--- NOTE | 2024-12-16 17:20 | PC.NURSE ---
psych consult conversation This nurse spoke with Jeny from psych today after Abhi the EMERGENCY SPECIALIST in the ED was concerned over the patient getting the PRN seroquil related to a previous day of over sedation/sleepiness. Upon speaking with Jeny she asked this nurse how the patient had been doing today- I was able to report that the patient has not been over sedated at all today, he at times fell asleep but was easy to wake and at times would get agitated with staff when we attempted to reposition him when he attempted to get oob- pt would swat at staff. Per Jeny the medications on the med list are approved to give the patient as needed and the reasoning he was given the prn was justified to give it. This nurse spoke with her about the time and dosage of the trazodone which she explained was due to his late evening increased agitation and aggression. The patient this morning was easily woken. Even with the PRN medication today this patient remained awake and talking with staff, however his demeanor changed and was less agitated and more engaging with staff. pt currently watching tv, fall precautions intact.
--- NOTE | 2024-12-16 17:29 | PC.NURSE ---
pt was assisted with his dinner, pt refusing the chicken salad as he didnt like the taste, however he drank all of the honey thick liquids- pt was requesting to drink it on his own without assistance, pt was able to drink these items on his own. this nurse made additional drinks honey thick upon the patients request and patient has successfully drank these additional drinks. pt has been again positioned in his bed, black cath patient/draining, plan of care ongoing
[2024-12-16] MEDS: Magnesium Oxide 400 MG TABLET 200 MG PO (20:39)
[2024-12-16 21:02] VITALS: BP 174/67; PULSE 87; RESP 16; TEMP 36.3; O2SAT 97
[2024-12-17 06:00] VITALS: BP 122/60; PULSE 72; RESP 16; TEMP 36.3; O2SAT 99
--- NOTE | 2024-12-17 06:04 | PC.NURSE ---
Pt calm and cooperative at the bedside. Slept throughout the night comfortably with no events or disturbances noted. Had a few instances where pt was awake speaking to himself. Remained calm at the bedside. Breaths remained even, regular and non labored. Wet cough noted at times. Sweet cath in place, remains intact and properly secured. No signs of leakage, kinking, or obstruction noted. Urine output wnl. Monitoring is ongoing.
--- NOTE | 2024-12-17 09:00 | MHC.EDTECH ---
I feed the patient he is 1:1 feed, ate 25% from his breakfast RN aware.
[2024-12-17] MEDS: cefuroxime axetiL 500 MG TABLET PO ×2 (09:18→20:02)
[2024-12-17] MEDS: Escitalopram Oxalate 10 MG TABLET PO (09:18)
[2024-12-17] MEDS: QUEtiapine Fumarate 50 MG TABLET PO ×3 (09:18→20:02)
[2024-12-17] MEDS: Multivitamin TABLET 1 TAB PO (09:18)
--- NOTE | 2024-12-17 10:03 | MHC.EDTECH ---
Patient is very confuse, moving a lot in his bed and he want to get out of the bed. Camera present at bedside.
[2024-12-17 14:33] VITALS: BP 118/64; PULSE 85; RESP 14; TEMP 36.6; O2SAT 97
[2024-12-17] MEDS: traZODone HCL 50 MG TABLET PO (16:28)
--- NOTE | 2024-12-17 17:30 | PC.NURSE ---
Patient alert, disoriented, very confused, unable to answer any questions. Restless with mild aggression, yelling out profanity. Loud outburst, calling for , constant self talk. Difficult to redirect, attempting to get out of bed. Pulling on black and anything he can grab on to, including staff. Poor PO intake, refusing meal, will agree to fluids and desserts only. Compliant with medications, crushed in puree. Black in place for retention, draining dark yellow urine, total drained 400ml. Camera in place for additional safety.
[2024-12-17 19:51] VITALS: BP 128/66; PULSE 95; RESP 15; TEMP 36.2; O2SAT 96
[2024-12-17] MEDS: Magnesium Oxide 400 MG TABLET 200 MG PO (20:02)
[2024-12-17] MEDS: QUEtiapine Fumarate 25 MG TABLET PO (20:02)
[2024-12-18 05:53] VITALS: BP 129/73; PULSE 66; RESP 16; TEMP 36.3; O2SAT 95
[2024-12-18] MEDS: cefuroxime axetiL 500 MG TABLET PO ×2 (08:19→20:31)
[2024-12-18] MEDS: QUEtiapine Fumarate 50 MG TABLET PO ×3 (08:19→23:16)
[2024-12-18] MEDS: Escitalopram Oxalate 10 MG TABLET PO (08:20)
[2024-12-18] MEDS: Multivitamin TABLET 1 TAB PO (08:20)
--- NOTE | 2024-12-18 12:20 | MHC.CM.ED ---
Patient remains in ER overflow. Will ask for repeat PT eval for tomorrow morning. Continue to monitor for d/c needs.
--- NOTE | 2024-12-18 12:25 | P.CNPS_ITS ---
History of Present Illness Date of Service: 12/18/2024 Chief Complaint: aggressive behavior from snf Sources of Information: patient interviewed, chart reviewed and crisis/core team assessment reviewed HPI Narrative: Interim Hx: per RN, pt this morning, after taking medications has been asleep. He apparently had episode of combative behaviors earlier in the morning but was redirectable. His s/s of delirium do not seem to improve. May need more structure from [facility] unit. Will reorder labs. Past Psychiatric History: Inpt: none OP: none PCP prescribing psychotropic medications including olazanpine, seroquel, Review of Systems Review of Systems Yes Unobtainable due to mental status Diagnostics Vital Signs (24Hr): Vital Signs - 24 hr 12/17/24 14:33 12/17/24 19:51 12/18/24 05:53 Temperature 97.8 F 97.2 F 97.3 F Pulse Rate 85 95 66 Respiratory Rate 14 15 16 Blood Pressure 118/64 128/66 129/73 Pulse Oximetry 97 96 95 Oxygen Delivery Method Room Air Room Air Room Air BMI result Body Mass Index 22.4 Labs 12/15/24 10:44 12/15/24 10:44 Imaging Radiology Impressions: ITS Impressions Chest X-Ray 12/11/24 06:56 IMPRESSION: Chronic interstitial lung disease with questionable mild interstitial lung edema versus small airway inflammatory disease. Electronically signed by: Wilver Hernandez MD 12/11/2024 08:25 AM EST RP Chest X-Ray 12/15/24 09:43 IMPRESSION: No acute cardiopulmonary abnormality. Electronically signed by: Rodri Lawson MD 12/15/2024 10:04 AM EST RP Mental Status Exam Mental Status Exam Narrative: Pt asleep, not able to participate in full assessment due to sedation. Medications Medications Current Medications Cefuroxime Axetil (Cefuroxime Axetil 500 Mg Tablet) 500 mg PO BID [facility] Last Admin: 12/18/24 08:19 Dose: 500 mg Escitalopram Oxalate (Escitalopram Oxalate 10 Mg Tablet) 10 mg PO DAILY [facility] Last Admin: 12/18/24 08:20 Dose: 10 mg Magnesium Oxide (Magnesium Oxide 400 Mg Tablet) 200 mg PO BEDTIME [facility] Last Admin: 12/17/24 20:02 Dose: 200 mg Multivitamins/Vitamin C (Multivitamin Tablet) 1 tab PO DAILY [facility] Last Admin: 12/18/24 08:20 Dose: 1 tab Quetiapine Fumarate (Quetiapine Fumarate 25 Mg Tablet) 25 mg PO Q6H PRN PRN Reason: Anxiety, agitation Last Admin: 12/17/24 20:02 Dose: 25 mg Quetiapine Fumarate (Quetiapine Fumarate 50 Mg Tablet) 50 mg PO TID [facility] Last Admin: 12/18/24 08:19 Dose: 50 mg Trazodone HCl (Trazodone Hcl 50 Mg Tablet) 50 mg PO BEDTIME [facility] Allergies Allergies Allergy/AdvReac Type Severity Reaction Status Date / Time No Known Allergies Allergy Verified 12/08/24 17:54 Assessment & Plan Assessment & Plan (1) Major neurocognitive disorder: Status: Acute Code(s): F03.90 - Unspecified dementia, unspecified severity, without behavioral disturbance, psychotic disturbance, mood disturbance, and anxiety (2) Delirium: Status: Acute Code(s): R41.0 - Disorientation, unspecified Assessment and Plan: Not improvement noted in s/s of delirium. Plan Mr. Burnett is an 84 year-old male with hx of dementia, probably AD. He was brought via EMS same day he went to STR due to combative behaviors. He presents with s/s of delirium superimposed on dementia. He is currently now able to engage in STR due to increased confusions and poor attention r/t delirium. After discussing risks, benefits and alternative treatment options with daughter, who is HCP, agreed to d/c olanzapine as she reports he was overly sedated and dizzy,she also reports side effects with exelon and namenda and would like him to be off those two medications as well. Will scheduled seroquel 25mg po TID, add prn seroquel 25mg po q6h prn agitation. PLAN 1. continue management of delirium care- avoid oversedation, encourage proper hydration as he is not able to verbalize need for it and does need more assistance eating. 12/14/24--> pt continues to present as very confused, poor attention all symptoms of delirium, which does not seem to be resolving yet. I will increase seroquel to 50mg po TID, however, keeping in mind that delirium can last several weeks, avoid oversedation at night when he tries to ambulate. Monitor proper hydration as he can quickly dehydrate. CMP ordered today: BUN 21, Cr 0.79, no electrolyte abnormalities. Assist with mobility as possible. 12/15/24 continue seroquel 50mg po TID- HOLD if over sedation noted. AVOID OVERMEDICATION at night when he is attempting to ambulate. Judiciously maintain hydration and attempt to walk patient. If need IM medication for combative/aggressive behaviors (NOT FOR PATIENT ATTEMPTING TO GET OUT OF BED), use low dose of olanzapine 5mg q6h. NOTE that oversedation will be noted the following day, prolonging delirium as it increases risk of dehydration, normalization of circadian cycle. 12/18 consider [facility] psych for stabilization, containment and safety. referred to care team for admission to [facility] psych. Total time managing care of this patient today ____ minutes.
[2024-12-18 14:00] VITALS: BP 111/58; PULSE 68; RESP 16; TEMP 36.5; O2SAT 98
--- NOTE | 2024-12-18 16:21 | MHC.SLORD ---
Speech Language Pathology Order Status: Pt not seen for dysphagia tx today. LEVEL DESIGNER to followup tomorrow.
--- NOTE | 2024-12-18 16:30 | MHC.CM.ED ---
CM reviewed psych consult note from today. Possible [facility] psych for med management/delirum. Pt daughter Laurie called ([phone]). Laurie has many questions regarding plan of care, medication management, black catheter and delirum. VIVIAN explained that I was unable to answer her questions. Reviewed psych consult and recent nurse notes with daughter. Reviewed that [facility] is not accepting patient back to their facility at this time. VIVIAN explained that I could contact Jeny Manning psychotherapist social worker and have her speak with her. VIVIAN contacted Jeny via [employer]. She will contact daughter.
[2024-12-18 17:05] LABS: MANUAL DIFF FLAG NO
[2024-12-18 17:06] LABS: Basophils Percent Auto 0.6 % (0-2); Eosinophils Absolute Auto 0.4 X10*3/uL (0.0-0.4); Eosinophils Percent Auto 7.5 % (0-4); Hematocrit 33.7 % (42.0-52.0); Hemoglobin 11.8 g/dl (14.0-18.0); Imm Gran Abs Auto 0.02 X10*3/uL (0.00-0.03); Imm Gran Pct Auto 0.4 % (0.0-0.4); Lymphocytes Absolute Auto 1.2 X10*3/uL (1.2-4.9); Lymphocytes Percent Auto 22.9 % (20-40); Mean Corpuscular Hemoglobin 31.7 pg (27.0-33.0); Mean Corpuscular Volume 90.6 fL (80.0-98.0); Mean Platelet Volume 9.8 fL (9.4-12.4); Monocytes Absolute Auto 0.5 X10*3/uL (0.1-1.2); Monocytes Percent Auto 9.9 % (2-11); Neutrophils Absolute Auto 3.2 x10*3/uL (2.0-8.3); Neutrophils Percent Auto 58.7 % (45-73); Platelet Count 229 X10*3/uL (160-400); Red Blood Count 3.72 X10*6/uL (4.60-5.80); Red Cell Distribution Width 12.6 % (11.0-16.0); White Blood Count 5.4 X10*3/uL (4.8-10.8)
[2024-12-18] MEDS: QUEtiapine Fumarate 25 MG TABLET PO (17:06)
[2024-12-18 17:11] LABS: Appearance Urine Turbid; Color Urine Dark Yellow; Glucose Urine UA Negative (Negative); Leukocyte Esterase Urine Small (1+) (Negative); Nitrite Urine Negative (Negative); UMIC TRIGGER UA YES; Urine Blood Large (3+) (Negative); Urine Ketones Negative (Negative); Urine Protein 30 (1+) mg/dL (Neg-Trace)
[2024-12-18 17:16] LABS: Bacteria Urine None Seen (None Seen); RBC Urine >20 /HPF (0-2); Squamous Epithelial Cell Urine 0-2 /HPF (0-2)
[2024-12-18 17:21] LABS: Alanine Aminotransferase 19 U/L (0-40); Albumin Level 3.6 g/dL (3.5-5.0); Alkaline Phosphatase 94 U/L (39-117); Anion Gap 10 (12-20); Aspartate Amino Transferase 21 U/L (5-37); Bilirubin Total 0.6 mg/dL (0.0-1.0); Blood Urea Nitrogen 22 mg/dL (9-16); Calcium 8.9 mg/dL (8.4-10.2); Carbon Dioxide 29 mmol/L (22-29); Chloride 108 mmol/L (96-108); Creatinine Clr Calc Pharmacy 60.8; Estimated Glomerular Filt Rate > 60; Glucose Random 119 mg/dL (60-115); Sodium 143 mmol/L (135-145); Total Protein 6.7 g/dL (6.5-8.0)
--- NOTE | 2024-12-18 17:25 | PC.NURSE ---
Patient awakens with some restlessness, trying to get out of bed often. Patient moving blankets but cooperative and redirectable at this time. COIN TELLER providing pt snack for redirection and patient calm but continues rambling.
--- NOTE | 2024-12-18 18:03 | PC.NURSE ---
patient given medication intervention d/t increased agitation and restlessness trying to climb out of bed multiple times and pulling at black cath. theraputic techniques and redirection not working well. Patient compliantly takes meds in pudding or applesauce with aspiration precautions.
[2024-12-18] MEDS: LORazepam 0.5 MG TABLET PO (18:37)
--- NOTE | 2024-12-18 18:41 | MHC.EDTECH ---
patient fed 1:1 ate 100 % and drank 480 cc. patient dressed in pull up and jelani pants to preserve black catheter.
[2024-12-18 19:52] VITALS: BP 130/59; PULSE 83; RESP 16; TEMP 36.3; O2SAT 96
--- NOTE | 2024-12-18 19:57 | MHC.EDTECH ---
This pct assumed care of Patient at 1915 pm ,Patient very agitated and combative ,attempting to climb out of bed ,hitting and scratching staff ,vitals taken ,Patient was reposition and boosted up in bed ,All safety measure in Place .
[2024-12-18] MEDS: Magnesium Oxide 400 MG TABLET 200 MG PO (20:31)
[2024-12-18] MEDS: traZODone HCL 50 MG TABLET PO (20:31)
[2024-12-19 05:54] VITALS: BP 111/61; PULSE 77; RESP 16; TEMP 36.8; O2SAT 96
[2024-12-19] MEDS: QUEtiapine Fumarate 50 MG TABLET PO ×3 (09:36→20:37)
[2024-12-19] MEDS: Multivitamin TABLET 1 TAB PO (09:36)
[2024-12-19] MEDS: Escitalopram Oxalate 10 MG TABLET PO (09:36)
[2024-12-19] MEDS: cefuroxime axetiL 500 MG TABLET PO (09:37)
--- NOTE | 2024-12-19 11:30 | MHC.SL.SWA ---
Speech Pathologist Impression: Oralpharyngeal Dysphagia Risk of Aspiration Due to: Neurological Condition Reduced Cognition Dysphasia Diet Status: UPGRADE from HTL to NTL Liquid Consistency and Strategies for Safe Swallow: Liquid Intake Recommendation: [place] Thick Liquid Intake Strategies: Small Sips No Straws Solid Food Consistency: Dietary Recommendations: Grnd/Mech Altered (NDD2) Additional Modifications to Solid Foods: Patient presents with mild to moderate oropharyngeal dysphagia, in the setting of dementia. Patient requires direct supervision at meal time. He will need frequent cues for safe eating strategies and assistance feeding at times. Recommend a GROUND/MECH ALTERED (NDD2) diet for ease of mastication, as patient presents with missing teeth, and HONEY THICK liquids, pills CRUSHED in PUREE. Oral Medication Intake: Crushed with Puree Please contact the pharmacy regarding appropriate crushable or liquid drug formulations that are available whenever modified delivery is recommended. Compensatory Strategies and Precautions to be Taken for Safe Swallow: Sitting Upright (90 deg) No Straw Small Bites and Sips Alternate Liquids/Solids Rate of Ingestion Change Oral Check Avoid Specific Foods Supervision While Eating and Drinking for Safe Swallow: Total Supervision (1:1) Foods to Avoid: [place] hard, dry, or sticky foods Mixed consistencies Swallowing Recommended Treatments: Compens. Strategy Educat. Recommendation for Speech: Inpatient Speech Therapy Entry Processor Clinican/Clinical Fellow: No Supervisory Statement: I have reviewed and agree with the student/clinical fellow's documentation: N/A Speech Language Pathologist: Shelley Gamez M.A., CCC-TELEPHONE ASSEMBLER
--- NOTE | 2024-12-19 13:47 | PC.NURSE ---
since awakening pt confused mumbling to himself and occasionally yelling out, not making sense, frequently requiring redirection and attempting to get up but only has been able to put his leg over the railing or roll to the side of the bed,
[2024-12-19 14:00] VITALS: BP 115/59; PULSE 89; RESP 18; TEMP 36.2; O2SAT 98
[2024-12-19] MEDS: QUEtiapine Fumarate 25 MG TABLET PO (15:33)
--- NOTE | 2024-12-19 15:36 | PC.NURSE ---
prn seroquel given, pt becoming more agiatated and requiring frequent redirection, redirectable but did grab a hold of pct's arm tightly at one point, not making sense, restless in bed, pysical therapy order on 12/09 but unable to find any notes, I called PT about coming up to assist in ambulating him but they are done for the day, they would need an order to come up , CHRIS Miranda informed as well as CHINMAY Zendejas
--- NOTE | 2024-12-19 17:45 | PM.PSYCN ---
History of Present Illness Date of Service: 12/19/2024 Chief Complaint: aggressive behavior from snf Discussed with referring provider: Yes Sources of Information: patient interviewed, chart reviewed and crisis/core team assessment reviewed HPI Narrative: Interim Hx: pt slept most of the night. He is taking medications. He was not sedated today but continues to present with poor attention, not oriented to place, situation, month or year. Aphasia expressive and receptive at baseline. ordered set of labs yesterday- UA, shows UTI, ordered culture He has a black, clarify if it was based on bladder scan post void, which it does not seem to be. MAY want to trial without black. Pt was supposed to be transferred today to [facility] psych unit, but bed not available. Past Psychiatric History: Inpt: none OP: none PCP prescribing psychotropic medications including olazanpine, seroquel, Diagnostics Vital Signs (24Hr): Vital Signs - 24 hr 12/18/24 19:52 12/19/24 05:54 12/19/24 14:00 Temperature 97.3 F 98.2 F 97.1 F Pulse Rate 83 77 89 Respiratory Rate 16 16 18 Blood Pressure 130/59 L 111/61 115/59 L Pulse Oximetry 96 96 98 Oxygen Delivery Method Room Air Room Air Room Air BMI result Body Mass Index 22.4 Labs 12/18/24 17:01 12/18/24 17:01 Labs: Laboratory Results - last 48 hr 12/18/24 17:01 WBC 5.4 RBC 3.72 L Hgb 11.8 L Hct 33.7 L MCV 90.6 MCH 31.7 MCHC 35.0 RDW 12.6 Plt Count 229 MPV 9.8 Immature Gran % (Auto) 0.4 Neut % (Auto) 58.7 Lymph % (Auto) 22.9 [place] % (Auto) 9.9 Eos % (Auto) 7.5 H Baso % (Auto) 0.6 Lymph # (Auto) 1.2 [place] # (Auto) 0.5 Eos # (Auto) 0.4 Baso # (Auto) 0.0 Abs Immat Gran (auto) 0.02 Absolute Neuts (auto) 3.2 Absolute Nucleated RBC 0.000 Nucleated RBC % (auto) 0.0 Sodium 143 Potassium 4.0 Chloride 108 Carbon Dioxide 29 Anion Gap 10 L BUN 22 H Creatinine 0.83 Estim Creat Clear Calc 60.8 Estimated GFR > 60 Random Glucose 119 H Calcium 8.9 Total Bilirubin 0.6 AST 21 ALT 19 Alkaline Phosphatase 94 Total Protein 6.7 Albumin 3.6 Urine Color Dark Yellow Urine Appearance Turbid Urine pH 7.0 Ur Specific [place] 1.020 Urine Protein 30 (1+) H Urine Glucose (UA) Negative Urine Ketones Negative Urine Blood Large (3+) H Urine Nitrite Negative Ur Leukocyte Esterase Small (1+) H Urine RBC >20 H Urine WBC 11-20 H Ur Squamous Epith Cells 0-2 Urine Bacteria None Seen Hyaline Casts 3-5 Imaging Radiology Impressions: ITS Impressions Chest X-Ray 12/11/24 06:56 IMPRESSION: Chronic interstitial lung disease with questionable mild interstitial lung edema versus small airway inflammatory disease. Electronically signed by: Wilver Hernandez MD 12/11/2024 08:25 AM EST RP Chest X-Ray 12/15/24 09:43 IMPRESSION: No acute cardiopulmonary abnormality. Electronically signed by: Rodri Lawson MD 12/15/2024 10:04 AM EST RP Mental Status Exam Mental Status Exam Narrative: Appearance: wearing hospital gown, fair hygiene, thin, but not malnourished. In NAD but restless Behavior: poor attention at times looking at this typewriter operator automatic and saying I love you, attempting to kiss this typewriter operator automatic's hand Psychomotor: restless, not combative Speech: mumbles, regular tone/rhythm, spontaneous TP: expressive and some degree of receptive aphasia/ derailed TC: wanting food, to wanting to hold hands and kiss typewriter operator automatic Mood: good Affect: restless, periods of smiling, then mildly irritable SI: no HI: none VH/AH: appears internally preoccupied Delusions:somewhat suspicious Insight/judgment: impaired x2 Memory/cog: alert, not oriented to place, month year nor situation. Medications Medications Current Medications Escitalopram Oxalate (Escitalopram Oxalate 10 Mg Tablet) 10 mg PO DAILY [facility] Last Admin: 12/19/24 09:36 Dose: 10 mg Magnesium Oxide (Magnesium Oxide 400 Mg Tablet) 200 mg PO BEDTIME [facility]S AT [facility] Last Admin: 12/18/24 20:31 Dose: 200 mg Multivitamins/Vitamin C (Multivitamin Tablet) 1 tab PO DAILY [facility]S AT [facility] Last Admin: 12/19/24 09:36 Dose: 1 tab Quetiapine Fumarate (Quetiapine Fumarate 25 Mg Tablet) 25 mg PO Q6H PRN PRN Reason: Anxiety, agitation Last Admin: 12/19/24 15:33 Dose: 25 mg Quetiapine Fumarate (Quetiapine Fumarate 50 Mg Tablet) 50 mg PO TID [facility]S AT [facility] Last Admin: 12/19/24 14:04 Dose: 50 mg Trazodone HCl (Trazodone Hcl 50 Mg Tablet) 50 mg PO BEDTIME [facility] 234 BEDS AT [facility] Last Admin: 12/18/24 20:31 Dose: 50 mg Allergies Allergies Allergy/AdvReac Type Severity Reaction Status Date / Time No Known Allergies Allergy Verified 12/08/24 17:54 Assessment & Plan Assessment & Plan (1) Major neurocognitive disorder: Status: Acute Code(s): F03.90 - Unspecified dementia, unspecified severity, without behavioral disturbance, psychotic disturbance, mood disturbance, and anxiety (2) Delirium: Status: Acute Code(s): R41.0 - Disorientation, unspecified Assessment and Plan: Not improvement noted in s/s of delirium. Plan Mr. Burnett is an 84 year-old male with hx of dementia, probably AD. He was brought via EMS same day he went to STR due to combative behaviors. He presents with s/s of delirium superimposed on dementia. He is currently now able to engage in STR due to increased confusions and poor attention r/t delirium. After discussing risks, benefits and alternative treatment options with daughter, who is HCP, agreed to d/c olanzapine as she reports he was overly sedated and dizzy,she also reports side effects with exelon and namenda and would like him to be off those two medications as well. Will scheduled seroquel 25mg po TID, add prn seroquel 25mg po q6h prn agitation. PLAN 1. continue management of delirium care- avoid oversedation, encourage proper hydration as he is not able to verbalize need for it and does need more assistance eating. 12/14/24--> pt continues to present as very confused, poor attention all symptoms of delirium, which does not seem to be resolving yet. I will increase seroquel to 50mg po TID, however, keeping in mind that delirium can last several weeks, avoid oversedation at night when he tries to ambulate. Monitor proper hydration as he can quickly dehydrate. CMP ordered today: BUN 21, Cr 0.79, no electrolyte abnormalities. Assist with mobility as possible. 12/15/24 continue seroquel 50mg po TID- HOLD if over sedation noted. AVOID OVERMEDICATION at night when he is attempting to ambulate. Judiciously maintain hydration and attempt to walk patient. If need IM medication for combative/aggressive behaviors (NOT FOR PATIENT ATTEMPTING TO GET OUT OF BED), use low dose of olanzapine 5mg q6h. NOTE that oversedation will be noted the following day, prolonging delirium as it increases risk of dehydration, normalization of circadian cycle. 12/18 consider [facility] psych for stabilization, containment and safety. referred to care team for admission to [facility] psych. 12/19 UA shows UTI, pending culture. Pt was going to [facility] psych no bed open. Discussed with case management considering admission to medicine treat delirium and UTI, psych to follow pt while on medicine. Total time managing care of this patient today ____ minutes.
[2024-12-19 20:17] VITALS: BP 134/86; PULSE 100; RESP 16; TEMP 36.9; O2SAT 95
--- NOTE | 2024-12-19 20:25 | MHC.EDTECH ---
This Pct assumed care of Patient at 1915 pm ,Patient was fed a Pudding ,vitals taken ,Patient clean and dry ,was reposition and boosted up in bed ,Per Provider Valeria to hold off on [place] blood culture .BECCA sanchez .
[2024-12-19] MEDS: traZODone HCL 50 MG TABLET PO (20:37)
[2024-12-19] MEDS: Magnesium Oxide 400 MG TABLET 200 MG PO (20:37)
[2024-12-19 20:43] LABS: Appearance Urine Cloudy; Color Urine Yellow; Glucose Urine UA Negative (Negative); Leukocyte Esterase Urine Small (1+) (Negative); Nitrite Urine Negative (Negative); PH 6.5 (5.0-9.0); UMIC TRIGGER UACC YES; Urine Blood Large (3+) (Negative); Urine Ketones Trace mg/dL (Negative); Urine Protein 30 (1+) mg/dL (Neg-Trace)
[2024-12-19 20:58] LABS: Bacteria Urine 1+ (None Seen); Calcium Oxalate Crystals Urine Present; RBC Urine >20 /HPF (0-2); UACC Culture Trigger YES
[2024-12-19 20:59] LABS: Other Crystals Urine Present
--- NOTE | 2024-12-19 22:04 | PM.IMHP ---
History of Present Illness Date of Service: 12/19/24 Attending physician on admission: Alvaro Carrillo Chief Complaint: UTI, delerium Patient is an 84-year-old male with a past medical history significant for dementia, recently released from [facility] where he was admitted from 12/02-12/08 for frequent falls. Workup was negative and he was sent to a nursing facility where he was aggressive to the staff and sent back to the emergency room. He has been observed in the ED since 12/08, consulted by psych and has been awaiting a bed, UA yesterday with 11-20 WBCs no bacteria, small leuks, large blood (likely traumatic from catheter). Repeat UA today with 6-10 WBS, again small leuks and large blood. He was recently treated for UTI from 12/09- 12/19 with ceftin 500mg BID although UA only with trace leuks and 2+ bacteria at that time, no culture done. On 12/11 the pt developed a fever of 100.7 and was having diarrhea. Workup was negative for C diff, H and H with normocytic anemia, slight elevation of creatinine and BUN and he was given IV fluids. COVID, flu and RSV were negative. He continued to be observed in the ED managed by case management and Psychiatry, awaiting a bed. Psychiatry evaluation suggestive of advanced dementia. On 12/13 patient was retaining urine overnight, straight cath'd and was retaining again with 500 mL in the bladder in the morning, therefore a Black was placed and remains. Current labs without leukocytosis, stable H&H, no LUCAS. Review of Systems Review of Systems: Yes Unobtainable due to mental status [facility] Medical History Major neurocognitive disorder Delirium Social History Unable to assess alcohol history related to: Unable to respond Use of substances other than those prescribed or required for medical reasons: Unable to respond Advance Directives: No Advance Directives Information Provided: No Meds Allergies Allergy/AdvReac Type Severity Reaction Status Date / Time No Known Allergies Allergy Verified 12/08/24 17:54 Active Medications: Current Medications Escitalopram Oxalate (Escitalopram Oxalate 10 Mg Tablet) 10 mg PO DAILY [facility] Last Admin: 12/19/24 09:36 Dose: 10 mg Magnesium Oxide (Magnesium Oxide 400 Mg Tablet) 200 mg PO BEDTIME [facility] Last Admin: 12/19/24 20:37 Dose: 200 mg Multivitamins/Vitamin C (Multivitamin Tablet) 1 tab PO DAILY [facility] Last Admin: 12/19/24 09:36 Dose: 1 tab Quetiapine Fumarate (Quetiapine Fumarate 25 Mg Tablet) 25 mg PO Q6H PRN PRN Reason: Anxiety, agitation Last Admin: 12/19/24 15:33 Dose: 25 mg Quetiapine Fumarate (Quetiapine Fumarate 50 Mg Tablet) 50 mg PO TID [facility] Last Admin: 12/19/24 20:37 Dose: 50 mg Trazodone HCl (Trazodone Hcl 50 Mg Tablet) 50 mg PO BEDTIME [facility] Last Admin: 12/19/24 20:37 Dose: 50 mg Home Medications ?Medication ?Instructions ?Recorded ?Confirmed ?Last Taken ?Type escitalopram oxalate 20 mg tablet 10 mg PO DAILY 12/09/24 12/09/24 Unknown History magnesium oxide 200 mg PO DAILY@0 12/09/24 12/09/24 Unknown History trazodone 50 mg tablet 50 mg PO DAILY@162912/09/24 12/09/24 Unknown History vitamin B complex 1 cap PO DAILY 12/09/24 12/09/24 Unknown History Physical Exam Vital Signs and Narrative: Vital Signs: Last Vital Signs Temp 98.4 F 12/19/24 20:17 Pulse 100 12/19/24 20:17 Resp 16 12/19/24 20:17 BP 134/86 12/19/24 20:17 Pulse Ox 95 12/19/24 20:17 O2 Del Method Room Air 12/19/24 20:17 BMI result Body Mass Index 22.4 General: Alert, oriented to person but not place or time, no acute distress Resp: CTA bilaterally CVS: S1, S2, RRR GI: +BS, NT, no distention Skin: Warm, dry Neuro: Cranial nerves II-XII grossly intact bilaterally. Motor grossly intact bilaterally Extremities: No LE edema Psych: confused, mumbling, twiddling hands Results Labs 12/18/24 17:01 12/18/24 17:01 Labs: Laboratory Results - last 24 hr 12/19/24 20:36 Urine Color Yellow Urine Appearance Cloudy Urine pH 6.5 Ur Specific [place] 1.020 Urine Protein 30 (1+) H Urine Glucose (UA) Negative Urine Ketones Trace Urine Blood Large (3+) H Urine Nitrite Negative Ur Leukocyte Esterase Small (1+) H Urine RBC >20 H Urine WBC 6-10 H Ur Squamous Epith Cells 3-5 Calcium Oxalate Crystal Present Other Crystals Present Urine Bacteria 1+ Hyaline Casts 3-5 Assessment and Plan (1) Delirium: Status: Acute Plan Patient is an 84-year-old male with a past medical history significant for dementia, recently released from [facility] where he was admitted from 12/02-12/08 for frequent falls. Workup was negative and he was sent to a nursing facility where he was aggressive to the staff and sent back to the emergency room. The patient has been observed in the emergency department since 12/08, now admission recommended due to delirium, awaiting a psych bed. delirium secondary to advanced dementia, no infectious etiology - WBC normal, vitals stable, no sepsis or sign of acute infection - UA not consistent with UTI, culture pending, will not continue to treat at this time - black was placed due to retention on 12/13, consider black removal and trial of void in the AM - just completed 7 day course of ceftin for ?UTI although UA at that time also not consistent with UTI and culture not done - continue plan per psych: seroquel, escitalopram, trazodone DNR VTE prophy: lovenox Pt with delirium secondary to advanced dementia requiring admission for further psychiatric care. Quality Stroke Does the patient have a stroke diagnosis?: No VTE Prior VTE?: No VTE Risk Level:: Medical - moderate - high VTE Device Contraindication: Treatment Not Indicated VTE Drug Contraindication: N/A - Med Ordered
--- NOTE | 2024-12-19 23:16 | MHC.CM.ED ---
Pt medically admitted. Psychiatry will follow. CM will follow for safe discharge planning.
[2024-12-19 23:56] VITALS: RESP 16
[2024-12-20 05:56] VITALS: BP 120/81; PULSE 79; RESP 16; TEMP 36.7; O2SAT 96
[2024-12-20 06:10] LABS: Hematocrit 33.1 % (42.0-52.0); Hemoglobin 11.4 g/dl (14.0-18.0); Mean Corpuscular HGB Conc 34.4 g/dl (31.0-36.0); Mean Corpuscular Hemoglobin 31.6 pg (27.0-33.0); Mean Corpuscular Volume 91.7 fL (80.0-98.0); Mean Platelet Volume 10.8 fL (9.4-12.4); Platelet Count 231 X10*3/uL (160-400); Red Blood Count 3.61 X10*6/uL (4.60-5.80); Red Cell Distribution Width 12.7 % (11.0-16.0); White Blood Count 5.6 X10*3/uL (4.8-10.8)
[2024-12-20 06:12] LABS: Anion Gap 11 (12-20); Blood Urea Nitrogen 16 mg/dL (9-16); Calcium 9.1 mg/dL (8.4-10.2); Carbon Dioxide 27 mmol/L (22-29); Chloride 106 mmol/L (96-108); Creatinine Clr Calc Pharmacy 67.3; Estimated Glomerular Filt Rate > 60; Glucose Random 88 mg/dL (60-115); Potassium 4.5 mmol/L (3.3-5.1); Sodium 139 mmol/L (135-145)
[2024-12-20] MEDS: 0.9 % Sodium Chloride Flush 3 ML SYRINGE IVFLUSH ×2 (06:23→15:07)
--- NOTE | 2024-12-20 06:35 | PC.NURSE ---
Pt had uneventful night, occasional confusion and tearful discussing daughter Theodora and how they had a fight. Pt was easily redirectable with conversation and reassurance. Incontinence care provided and patient given snacks throughout the night while awake. Ate without difficulty.
--- NOTE | 2024-12-20 06:39 | PC.NURSE ---
Pt had an uneventful night. Pt was agitated, restless and resistive to care at times, but redirectable. IV line placed #20 to Left forearm for admission requirements. Pt tolerated well with assistance of tech. Pt continues to be confused and requires frequent redirection. Pt near nurse station, alarms and camera in place to maintain pt safety.
[2024-12-20] MEDS: QUEtiapine Fumarate 50 MG TABLET PO ×3 (08:30→20:16)
[2024-12-20] MEDS: Escitalopram Oxalate 10 MG TABLET PO (08:30)
[2024-12-20] MEDS: Multivitamin TABLET 1 TAB PO (08:30)
--- NOTE | 2024-12-20 11:48 | HO.PM.IMPN ---
Subjective Subjective Date of Service: 12/20/24 Interval History: Being followed for aggressive behavior. At present patient is sitting comfortably not following commands, nonsensical speech, no aggressive behavior today, requiring one-to-one feeds. Review of Systems Unable to obtain due to mental status Physical Exam Vital Signs: Vital Signs: Last Vital Signs Temp 98.0 F 12/20/24 05:56 Pulse 79 12/20/24 05:56 Resp 16 12/20/24 05:56 BP 120/81 12/20/24 05:56 Pulse Ox 96 12/20/24 05:56 O2 Del Method Room Air 12/20/24 05:56 BMI result Body Mass Index 22.4 Const: Other: General resting comfortably in no acute distress. Neck no JVD. CVS regular rate rhythm, Respiratory lungs clear to auscultation, no respiratory distress Gastrointestinal abdomen soft, non tender, bowel sounds audible Extremities no edema. Neuro moving all 4 extremity, speech nonsensical, not following commands Skin no rash Objective Data Active Medications Acetaminophen (Acetaminophen 325 Mg Tablet) 975 mg PO Q6H PRN PRN Reason: Pain, Mild 1-3,fever,headache Calcium Carbonate (Calcium Carbonate 750 Mg Tab.Chew) 750 mg PO Q4H PRN PRN Reason: Heartburn Enoxaparin Sodium (Enoxaparin Sodium 40 Mg/0.4 Ml Syringe) 40 mg SUBCUT Q24H [facility] Last Admin: 12/20/24 03:59 Dose: Not Given Documented By: JACI Non-Admin Reason: Patient Refused Escitalopram Oxalate (Escitalopram Oxalate 10 Mg Tablet) 10 mg PO DAILY [facility] Last Admin: 12/20/24 08:30 Dose: 10 mg Documented By: NACHO Magnesium Hydroxide (Milk Of Magnesia 30 Ml Oral.Susp) 30 ml PO DAILY PRN PRN Reason: Constipation Magnesium Oxide (Magnesium Oxide 400 Mg Tablet) 200 mg PO BEDTIME [facility] Last Admin: 12/19/24 20:37 Dose: 200 mg Documented By: JACI Melatonin (Melatonin 3 Mg Tablet) 6 mg PO BEDTIME PRN PRN Reason: Insomnia Multivitamins/Vitamin C (Multivitamin Tablet) 1 tab PO DAILY [facility] Last Admin: 12/20/24 08:30 Dose: 1 tab Documented By: NACHO Ondansetron HCl (Ondansetron Hcl 4 Mg/2 Ml Vial) 4 mg IVPUSH Q8H PRN PRN Reason: Nausea and Vomiting Polyethylene Glycol (Polyethylene Glycol 3350 17 Gm Powd.Pack) 17 gm PO DAILY PRN PRN Reason: Constipation Quetiapine Fumarate (Quetiapine Fumarate 25 Mg Tablet) 25 mg PO Q6H PRN PRN Reason: Anxiety, agitation Last Admin: 12/19/24 15:33 Dose: 25 mg Documented By: REBEKAH Quetiapine Fumarate (Quetiapine Fumarate 50 Mg Tablet) 50 mg PO TID [facility] Last Admin: 12/20/24 08:30 Dose: 50 mg Documented By: NACHO Sodium Chloride (0.9 % Sodium Chloride Flush 3 Ml Syringe) 3 ml IVFLUSH QSHIFT [facility] Last Admin: 12/20/24 08:49 Dose: Not Given Documented By: NACHO Non-Admin Reason: Previously Administered Trazodone HCl (Trazodone Hcl 50 Mg Tablet) 50 mg PO BEDTIME [facility] Last Admin: 12/19/24 20:37 Dose: 50 mg Documented By: JACI Labs 12/20/24 03:40 12/20/24 03:40 Labs: Laboratory Results - last 24 hr 12/19/24 12/20/24 20:36 03:40 MCV 91.7 MCH 31.6 MCHC 34.4 RDW 12.7 Plt Count 231 MPV 10.8 Absolute Nucleated RBC 0.000 Nucleated RBC % (auto) 0.0 Anion Gap 11 L Estim Creat Clear Calc 67.3 Estimated GFR > 60 Random Glucose 88 Calcium 9.1 Urine Color Yellow Urine Appearance Cloudy Urine pH 6.5 Ur Specific [place] 1.020 Urine Protein 30 (1+) H Urine Glucose (UA) Negative Urine Ketones Trace Urine Blood Large (3+) H Urine Nitrite Negative Ur Leukocyte Esterase Small (1+) H Urine RBC >20 H Urine WBC 6-10 H Ur Squamous Epith Cells 3-5 Calcium Oxalate Crystal Present Other Crystals Present Urine Bacteria 1+ Hyaline Casts 3-5 Microbiology Microbiology Results: Microbiology 12/18/24 17:01 Urine Culture - Final Urine clean catch - Clean Catch Midstream No growth. Assessment and Plan (1) Major neurocognitive disorder: Status: Acute (2) Delirium: Status: Acute Plan 84-year-old male with a past medical history significant for dementia, recently released from [facility] where he was admitted from 12/02-12/08 for frequent falls. Workup was negative and he was sent to a nursing facility where he was aggressive to the staff and sent back to the emergency room. The patient has been observed in the emergency department since 12/08, now admission recommended due to delirium, awaiting a psych bed. # Delirium secondary to advanced dementia, - no aggressive behavior noted today, - Chest x-ray unremarkable on admission - WBC normal, vitals stable, no sepsis or sign of acute infection - UA 1+ bacteria, 6-10 WBC, small leukocyte esterase, urine culture pending , hold antibiotics and follow culture - black was placed due to retention on 12/13, will DC Black and give voiding trial - just completed 7 day course of ceftin for ?UTI - continue plan per psych: seroquel, escitalopram, trazodone - case discussed with psych they will continue to follow patient daily. -PT recommend 24/7 care or long-term care upon discharge, due to poor safety awareness, confusion and likely no carry over, with skilled PT services. # unspecified advanced dementia DNR VTE prophy: lovenox Pt with delirium secondary to advanced dementia requiring continued inpatient admission for further psychiatric care. Quality Stroke Does the patient have a stroke diagnosis?: No VTE Prior VTE?: No VTE Risk Level:: Medical - moderate - high VTE Device Contraindication: Treatment Not Indicated VTE Drug Contraindication: N/A - Med Ordered
--- NOTE | 2024-12-20 12:18 | MHC.CM.PN ---
[facility] to ed pt to be followed by psych it is expected that pt may need str after behaviors are resolved
--- NOTE | 2024-12-20 13:03 | MHC.SL.SWA ---
Speech Pathologist Impression: Oralpharyngeal Dysphagia Risk of Aspiration Due to: Neurological Condition Reduced Cognition Dysphasia Diet Status: Liquid Consistency and Strategies for Safe Swallow: Liquid Intake Recommendation: [place] Thick Liquid Intake Strategies: Small Sips No Straws Solid Food Consistency: Dietary Recommendations: Grnd/Mech Altered (NDD2) Additional Modifications to Solid Foods: Patient presents with mild to moderate oropharyngeal dysphagia, in the setting of dementia. Patient requires direct supervision at meal time. He will need frequent cues for safe eating strategies and assistance feeding at times. Recommend a GROUND/MECH ALTERED (NDD2) diet for ease of mastication, as patient presents with missing teeth, and NECTAR THICKENED liquids, pills CRUSHED in PUREE. Oral Medication Intake: Crushed with Puree Please contact the pharmacy regarding appropriate crushable or liquid drug formulations that are available whenever modified delivery is recommended. Compensatory Strategies and Precautions to be Taken for Safe Swallow: Sitting Upright (90 deg) No Straw Small Bites and Sips Alternate Liquids/Solids Rate of Ingestion Change Oral Check Avoid Specific Foods Supervision While Eating and Drinking for Safe Swallow: Total Supervision (1:1) Foods to Avoid: Hard, sticky solids Mixed consistencies Swallowing Recommended Treatments: Compens. Strategy Educat. Recommendation for Speech: Inpatient Speech Therapy Comment: Patient presents with mild to moderate oropharyngeal dysphagia, in the setting of dementia. Patient requires direct supervision at meal time. He will need frequent cues for safe eating strategies and assistance feeding at times. Recommend a GROUND/MECH ALTERED (NDD2) diet for ease of mastication, as patient presents with missing teeth, and NECTAR THICK liquids, pills CRUSHED in PUREE. Frequency/Duration: Date Range for Service Req: Timeline to reassess: Heating Mechanic Clinican/Clinical Fellow: No Supervisory Statement: I have reviewed and agree with the student/clinical fellow's documentation: N/A Speech Language Pathologist: Miranda Morillo M.S., CCC-GOLF COURSE MECHANIC
[2024-12-20] MEDS: QUEtiapine Fumarate 25 MG TABLET PO (13:23)
[2024-12-20 14:00] VITALS: BP 121/76; PULSE 84; RESP 16; TEMP 36.8; O2SAT 96
--- NOTE | 2024-12-20 16:21 | P.CNPS_ITS ---
History of Present Illness Date of Service: 12/20/2024 Chief Complaint: delirium Sources of Information: patient interviewed, chart reviewed and crisis/core team assessment reviewed HPI Narrative: Pt was medically admitted as delirium clears up. He does have advanced dementia. physical therapy saw pt, did not recommend STR due to severe cognitive impairments. pending urine culture. Per RN uneventful night. he does attempt to get out of bed, and discussed with nursing judicious attempt to get him out of bed, between short distance ambulation with assists, and changing places from bed, to recliner. Past Psychiatric History: Inpt: none OP: none PCP prescribing psychotropic medications including olazanpine, seroquel, Review of Systems Review of Systems Unable to obtain due to mental status Yes Unobtainable due to mental status [facility] Medical History Major neurocognitive disorder Delirium Diagnostics Vital Signs (24Hr): Vital Signs - 24 hr 12/19/24 20:17 12/19/24 23:56 12/20/24 05:56 Temperature 98.4 F 98.0 F Pulse Rate 100 79 Respiratory Rate 16 16 16 Blood Pressure 134/86 120/81 Pulse Oximetry 95 96 Oxygen Delivery Method Room Air Room Air 12/20/24 14:00 Temperature 98.3 F Pulse Rate 84 Respiratory Rate 16 Blood Pressure 121/76 Pulse Oximetry 96 Oxygen Delivery Method Room Air BMI result Body Mass Index 22.4 Labs 12/20/24 03:40 12/20/24 03:40 Labs: Laboratory Results - last 48 hr 12/18/24 12/19/24 12/20/24 17:01 20:36 03:40 WBC 5.4 5.6 RBC 3.72 L 3.61 L Hgb 11.8 L 11.4 L Hct 33.7 L 33.1 L MCV 90.6 91.7 MCH 31.7 31.6 MCHC 35.0 34.4 RDW 12.6 12.7 Plt Count 229 231 MPV 9.8 10.8 Immature Gran % (Auto) 0.4 Neut % (Auto) 58.7 Lymph % (Auto) 22.9 [place] % (Auto) 9.9 Eos % (Auto) 7.5 H Baso % (Auto) 0.6 Lymph # (Auto) 1.2 [place] # (Auto) 0.5 Eos # (Auto) 0.4 Baso # (Auto) 0.0 Abs Immat Gran (auto) 0.02 Absolute Neuts (auto) 3.2 Absolute Nucleated RBC 0.000 0.000 Nucleated RBC % (auto) 0.0 0.0 Sodium 143 139 Potassium 4.0 4.5 Chloride 108 106 Carbon Dioxide 29 27 Anion Gap 10 L 11 L BUN 22 H 16 Creatinine 0.83 0.75 Estim Creat Clear Calc 60.8 67.3 Estimated GFR > 60 > 60 Random Glucose 119 H 88 Calcium 8.9 9.1 Total Bilirubin 0.6 AST 21 ALT 19 Alkaline Phosphatase 94 Total Protein 6.7 Albumin 3.6 Urine Color Dark Yellow Yellow Urine Appearance Turbid Cloudy Urine pH 7.0 6.5 Ur Specific [place] 1.020 1.020 Urine Protein 30 (1+) H 30 (1+) H Urine Glucose (UA) Negative Negative Urine Ketones Negative Trace Urine Blood Large (3+) H Large (3+) H Urine Nitrite Negative Negative Ur Leukocyte Esterase Small (1+) H Small (1+) H Urine RBC >20 H >20 H Urine WBC 11-20 H 6-10 H Ur Squamous Epith Cells 0-2 3-5 Calcium Oxalate Crystal Present Other Crystals Present Urine Bacteria None Seen 1+ Hyaline Casts 3-5 3-5 Imaging Radiology Impressions: ITS Impressions Chest X-Ray 12/11/24 06:56 IMPRESSION: Chronic interstitial lung disease with questionable mild interstitial lung edema versus small airway inflammatory disease. Electronically signed by: Wilver Hernandez MD 12/11/2024 08:25 AM EST RP Chest X-Ray 12/15/24 09:43 IMPRESSION: No acute cardiopulmonary abnormality. Electronically signed by: Rodri Lawson MD 12/15/2024 10:04 AM EST RP Mental Status Exam Mental Status Exam Narrative: Pt lying in bed, sleeping at around 2pm. Per nursing, pt has been calmed, was seen by PT and ambulated short distance with assistance but then had to return to bed as he was very unsteady. he attempts to ambulate, which I think is normal reflex as he has been in bed for several days. Medications Medications Current Medications Acetaminophen (Acetaminophen 325 Mg Tablet) 975 mg PO Q6H PRN PRN Reason: Pain, Mild 1-3,fever,headache Calcium Carbonate (Calcium Carbonate 750 Mg Tab.Chew) 750 mg PO Q4H PRN PRN Reason: Heartburn Enoxaparin Sodium (Enoxaparin Sodium 40 Mg/0.4 Ml Syringe) 40 mg SUBCUT Q24H [facility] Last Admin: 12/20/24 03:59 Dose: Not Given Escitalopram Oxalate (Escitalopram Oxalate 10 Mg Tablet) 10 mg PO DAILY [facility] Last Admin: 12/20/24 08:30 Dose: 10 mg Magnesium Hydroxide (Milk Of Magnesia 30 Ml Oral.Susp) 30 ml PO DAILY PRN PRN Reason: Constipation Magnesium Oxide (Magnesium Oxide 400 Mg Tablet) 200 mg PO BEDTIME [facility] Last Admin: 12/19/24 20:37 Dose: 200 mg Melatonin (Melatonin 3 Mg Tablet) 6 mg PO BEDTIME PRN PRN Reason: Insomnia Multivitamins/Vitamin C (Multivitamin Tablet) 1 tab PO DAILY [facility] Last Admin: 12/20/24 08:30 Dose: 1 tab Ondansetron HCl (Ondansetron Hcl 4 Mg/2 Ml Vial) 4 mg IVPUSH Q8H PRN PRN Reason: Nausea and Vomiting Polyethylene Glycol (Polyethylene Glycol 3350 17 Gm Powd.Pack) 17 gm PO DAILY PRN PRN Reason: Constipation Quetiapine Fumarate (Quetiapine Fumarate 25 Mg Tablet) 25 mg PO Q6H PRN PRN Reason: Anxiety, agitation Last Admin: 12/20/24 13:23 Dose: 25 mg Quetiapine Fumarate (Quetiapine Fumarate 50 Mg Tablet) 50 mg PO TID [facility] Last Admin: 12/20/24 14:00 Dose: 50 mg Sodium Chloride (0.9 % Sodium Chloride Flush 3 Ml Syringe) 3 ml IVFLUSH QSHIFT [facility] Last Admin: 12/20/24 15:07 Dose: 3 ml Trazodone HCl (Trazodone Hcl 50 Mg Tablet) 50 mg PO BEDTIME [facility] Last Admin: 12/19/24 20:37 Dose: 50 mg Allergies Allergies Allergy/AdvReac Type Severity Reaction Status Date / Time No Known Allergies Allergy Verified 12/08/24 17:54 Assessment & Plan Assessment & Plan (1) Major neurocognitive disorder: Status: Acute Code(s): F03.90 - Unspecified dementia, unspecified severity, without behavioral disturbance, psychotic disturbance, mood disturbance, and anxiety (2) Delirium: Status: Acute Code(s): R41.0 - Disorientation, unspecified Plan Mr. Burnett is an 84 year-old male with hx of dementia, probably AD. He was brought via EMS same day he went to STR due to combative behaviors. He presents with s/s of delirium superimposed on dementia. He is currently now able to engage in STR due to increased confusions and poor attention r/t delirium. After discussing risks, benefits and alternative treatment options with daughter, who is HCP, agreed to d/c olanzapine as she reports he was overly sedated and dizzy,she also reports side effects with exelon and namenda and would like him to be off those two medications as well. Will scheduled seroquel 25mg po TID, add prn seroquel 25mg po q6h prn agitation. PLAN 1. continue management of delirium care- avoid oversedation, encourage proper hydration as he is not able to verbalize need for it and does need more assistance eating. 12/14/24--> pt continues to present as very confused, poor attention all symptoms of delirium, which does not seem to be resolving yet. I will increase seroquel to 50mg po TID, however, keeping in mind that delirium can last several weeks, avoid oversedation at night when he tries to ambulate. Monitor proper hydration as he can quickly dehydrate. CMP ordered today: BUN 21, Cr 0.79, no electrolyte abnormalities. Assist with mobility as possible. 12/15/24 continue seroquel 50mg po TID- HOLD if over sedation noted. AVOID OVERMEDICATION at night when he is attempting to ambulate. Judiciously maintain hydration and attempt to walk patient. If need IM medication for combative/aggressive behaviors (NOT FOR PATIENT ATTEMPTING TO GET OUT OF BED), use low dose of olanzapine 5mg q6h. NOTE that oversedation will be noted the following day, prolonging delirium as it increases risk of dehydration, normalization of circadian cycle. 12/18 consider [facility] for stabilization, containment and safety. referred to care team for admission to [facility]. 12/19 UA shows UTI, pending culture. Pt was going to [facility] no bed open. Discussed with case management considering admission to medicine treat delirium and UTI, psych to follow pt while on medicine. 12/20 medically admitted for delirium, pending urine culture. will decrease seroquel to 50mg po BID at 1500 and 2100. MAINTAIN ADECUATE HYDRATION, PATIENT NOT ABLE TO ASK FOR IT. ATTEMPT TO GET HIM OUT OF BED, EITHER WALK WITH ASSISTANCE SHORT DISTANCE OR CHANGE POSITION FROM LYING IN BED TO SITTING IN RECLINER. AVOID OVER SEDATION, DO NOT MEDICATE IF PT ATTEMPTING TO GET OUT OF BED, ATTEMPT TO REDIRECT BUT ALSO BE MINDFUL THAT PATIENT HAS SPENT A LOT OF TIME LYING IN BED. Total time managing care of this patient today ____ minutes.
--- NOTE | 2024-12-20 16:40 | PC.NURSE ---
Removed black catheter at 1630. 300mL emptied from bag. Pt DTV @ 7507
--- NOTE | 2024-12-20 19:20 | PC.NURSE ---
this rn assumed care of pt, male purewick placed for incontinence at this time, pt boosted and assisted in repositioning. pt confused at baseline.
[2024-12-20] MEDS: Magnesium Oxide 400 MG TABLET 200 MG PO (20:15)
[2024-12-20 20:16] VITALS: BP 111/68; PULSE 71; RESP 15; TEMP 36.3; O2SAT 95
[2024-12-20] MEDS: traZODone HCL 50 MG TABLET PO (20:16)
--- NOTE | 2024-12-20 20:16 | MHC.EDTECH ---
This pct assumed care of Patient at 1915pm ,Patient very restless ,combative attempting to climb out of bed ,Patient was reposition and boosted up in bed ,vitals taken ,all safety measure in place .
--- NOTE | 2024-12-20 20:22 | PC.NURSE ---
pt medicated per dec, crushed with applesauce, pt took pills well. pt appears agitated but is redirectable in the bed at this time, TV in place.
--- NOTE | 2024-12-20 22:45 | PC.NURSE ---
pt noted to not have voided since black removal. pt bladder scan for amount of 261ml. Snehal MOY aware.
[2024-12-20] MEDS: Tamsulosin HCL 0.4 MG CAPSULE PO (23:00)
[2024-12-20] MEDS: Enoxaparin Sodium 40 MG/0.4 ML SYRINGE SUBCUT (23:03)
--- NOTE | 2024-12-20 23:04 | PC.NURSE ---
pt medicated per mar with flomax, plan for bladder scan >350 to straight cath.
[2024-12-21] MEDS: 0.9 % Sodium Chloride Flush 3 ML SYRINGE IVFLUSH ×4 (00:34→23:11)
[2024-12-21 00:36] VITALS: BP 132/68; PULSE 72; RESP 16; TEMP 36.2; O2SAT 95
--- NOTE | 2024-12-21 00:38 | PC.NURSE ---
pt bladder gfrv=[id number]. pt straight cath per provider order at this time, 350 yellow urine voided, pt tolerated well. vss. pt assisted in bed change and repositioning at this time.
[2024-12-21 00:59] VITALS: BP 123/65; PULSE 69; RESP 18; TEMP 36.3; O2SAT 98
[2024-12-21 04:00] VITALS: BP 118/60; PULSE 61; RESP 18; TEMP 36.4; O2SAT 97
[2024-12-21 07:30] VITALS: BP 130/66; PULSE 71; RESP 18; TEMP 36.7; O2SAT 100
[2024-12-21] MEDS: Multivitamin TABLET 1 TAB PO (09:16)
[2024-12-21] MEDS: Escitalopram Oxalate 10 MG TABLET PO (09:16)
--- NOTE | 2024-12-21 10:06 | MHC.SL.SWA ---
Speech Pathologist Impression: Oralpharyngeal Dysphagia Risk of Aspiration Due to: Neurological Condition Reduced Cognition Dysphasia Diet Status: Recommend continue on Ground Mechanical (NDD2) [place] Thick liquids (NO STRAW) pills crushed in puree. Liquid Consistency and Strategies for Safe Swallow: Liquid Intake Recommendation: [place] Thick Liquid Intake Strategies: Small Sips No Straws Solid Food Consistency: Dietary Recommendations: Grnd/Mech Altered (NDD2) Additional Modifications to Solid Foods: Patient presents with mild to moderate oropharyngeal dysphagia, in the setting of dementia. Patient requires direct assistance at meal time. He will need frequent cues for safe eating strategies and assistance feeding at times. Recommend a GROUND/MECH ALTERED (NDD2) diet for ease of mastication, as patient presents with missing teeth, and NECTAR THICK liquids, pills CRUSHED in PUREE. Oral Medication Intake: Crushed with Puree Please contact the pharmacy regarding appropriate crushable or liquid drug formulations that are available whenever modified delivery is recommended. Compensatory Strategies and Precautions to be Taken for Safe Swallow: Sitting Upright (90 deg) No Straw Liquids from Cup Small Bites and Sips Alternate Liquids/Solids Supervision While Eating and Drinking for Safe Swallow: Total Assistance (1:1) Foods to Avoid: Hard, sticky solids Mixed consistencies Swallowing Recommended Treatments: Compens. Strategy Educat. Recommendation for Speech: Inpatient Speech Therapy Comment: PPatient moved to inpatient floor overnight from ED. Seen this morning during breakfast. Patient was awake and alert, interested in breakfast but very confused. Patient given mashed bananas, applesauce and yogurt by tsp, with patient consuming all except yogurt which did not please him. Patient produced timely oral phase, evidenced no clinical signs of aspiration on puree. Patient handed cup of NT juice, he was initially confused by the lid on cup which was removed, and with some guidance, patient then independently sipped juice from cup, tolerating this [place] thick juice well. Patient did require high level of assistance throughout meal, with encouragement and orientation can do some self feeding. Recommend continue on Ground Mechanical (NDD2) [place] Thick liquids (NO STRAW) pills crushed in puree. WINDER FIXER will continue to follow. Frequency/Duration: Date Range for Service Req: Timeline to reassess: Forging Press Setter Up Clinican/Clinical Fellow: No Supervisory Statement: I have reviewed and agree with the student/clinical fellow's documentation: N/A Speech Language Pathologist: Miranda Morillo M.S., [facility]-WINDER FIXER
--- NOTE | 2024-12-21 10:58 | PC.NURSE ---
Patient ambulated to bathroom, 2 assist with walker. +void. Tolerated well. All needs met.
--- NOTE | 2024-12-21 12:15 | P.PNIM_ITS ---
Subjective Subjective Date of Service: 12/21/24 Interval History: No aggressive behavior noted. Nonsensical speech, difficult to understand, no acute events overnight Review of Systems Unable to obtain due to mental status. Physical Exam 2 Vital Signs: Vital Signs: Last Vital Signs Temp 98.1 F 12/21/24 07:30 Pulse 71 12/21/24 07:30 Resp 18 12/21/24 07:30 BP 130/66 12/21/24 07:30 Pulse Ox 100 12/21/24 07:30 O2 Del Method Room Air 12/21/24 07:30 BMI result Body Mass Index 22.4 Const: Other: General resting comfortably in no acute distress. Neck no JVD. CVS regular rate rhythm, Respiratory lungs clear to auscultation, no respiratory distress Gastrointestinal abdomen soft, non tender, bowel sounds audible Extremities no edema. Neuro moving all 4 extremity, speech nonsensical, not following commands Skin no rash Objective Data Active Medications Acetaminophen (Acetaminophen 325 Mg Tablet) 975 mg PO Q6H PRN PRN Reason: Pain, Mild 1-3,fever,headache Calcium Carbonate (Calcium Carbonate 750 Mg Tab.Chew) 750 mg PO Q4H PRN PRN Reason: Heartburn Enoxaparin Sodium (Enoxaparin Sodium 40 Mg/0.4 Ml Syringe) 40 mg SUBCUT Q24H [facility] Last Admin: 12/20/24 23:03 Dose: 40 mg Documented By: SHARON Escitalopram Oxalate (Escitalopram Oxalate 10 Mg Tablet) 10 mg PO DAILY [facility] Last Admin: 12/21/24 09:16 Dose: 10 mg Documented By: YOEL Magnesium Hydroxide (Milk Of Magnesia 30 Ml Oral.Susp) 30 ml PO DAILY PRN PRN Reason: Constipation Magnesium Oxide (Magnesium Oxide 400 Mg Tablet) 200 mg PO BEDTIME [facility] Last Admin: 12/20/24 20:15 Dose: 200 mg Documented By: SHARON Melatonin (Melatonin 3 Mg Tablet) 6 mg PO BEDTIME PRN PRN Reason: Insomnia Multivitamins/Vitamin C (Multivitamin Tablet) 1 tab PO DAILY [facility] Last Admin: 12/21/24 09:16 Dose: 1 tab Documented By: YOEL Ondansetron HCl (Ondansetron Hcl 4 Mg/2 Ml Vial) 4 mg IVPUSH Q8H PRN PRN Reason: Nausea and Vomiting Polyethylene Glycol (Polyethylene Glycol 3350 17 Gm Powd.Pack) 17 gm PO DAILY PRN PRN Reason: Constipation Quetiapine Fumarate (Quetiapine Fumarate 25 Mg Tablet) 25 mg PO Q6H PRN PRN Reason: Anxiety, agitation Last Admin: 12/20/24 13:23 Dose: 25 mg Documented By: ZENA Quetiapine Fumarate (Quetiapine Fumarate 50 Mg Tablet) 50 mg PO BID@1500,2100 [facility] Last Admin: 12/20/24 20:16 Dose: 50 mg Documented By: SHARON Sodium Chloride (0.9 % Sodium Chloride Flush 3 Ml Syringe) 3 ml IVFLUSH QSHIFT [facility] Last Admin: 12/21/24 09:17 Dose: 3 ml Documented By: YOEL Tamsulosin HCl (Tamsulosin Hcl 0.4 Mg Capsule) 0.4 mg PO BEDTIME [facility] Last Admin: 12/20/24 23:00 Dose: 0.4 mg Documented By: SHARON Trazodone HCl (Trazodone Hcl 50 Mg Tablet) 50 mg PO BEDTIME [facility] Last Admin: 12/20/24 20:16 Dose: 50 mg Documented By: SHARON Labs 12/20/24 03:40 12/20/24 03:40 Microbiology Microbiology Results: Microbiology 12/19/24 Unknown Urine Culture - Final Urine clean catch - Clean Catch Midstream No growth. 12/18/24 17:01 Urine Culture - Final Urine clean catch - Clean Catch Midstream No growth. Assessment and Plan (1) Major neurocognitive disorder: Status: Acute Plan 84-year-old male with a past medical history significant for dementia, recently released from [facility] where he was admitted from 12/02-12/08 for frequent falls. Workup was negative and he was sent to a nursing facility where he was aggressive to the staff and sent back to the emergency room. The patient has been observed in the emergency department since 12/08, now admission recommended due to delirium, awaiting a psych bed. # Delirium secondary to advanced dementia, - no aggressive behavior noted - Chest x-ray unremarkable on admission - WBC normal, vitals stable, no sepsis or sign of acute infection - UA 1+ bacteria, 6-10 WBC, small leukocyte esterase, urine culture neg. - black was placed due to retention on 12/13, Black now removed. - just completed 7 day course of ceftin for ?UTI - continue plan per psych: seroquel, escitalopram, trazodone - case discussed with psych they will continue to follow patient daily. -PT recommend 24/7 care or long-term care upon discharge, due to poor safety awareness, confusion and likely no carry over, with skilled PT services. # unspecified advanced dementia DNR VTE prophy: lovenox Pt with delirium secondary to advanced dementia requiring continued inpatient admission for further psychiatric care. Quality Stroke Does the patient have a stroke diagnosis?: No VTE Prior VTE?: No VTE Risk Level:: Medical - moderate - high VTE Device Contraindication: Treatment Not Indicated VTE Drug Contraindication: N/A - Med Ordered
[2024-12-21 15:09] VITALS: BP 124/64; PULSE 78; RESP 18; TEMP 36.1; O2SAT 96
[2024-12-21] MEDS: QUEtiapine Fumarate 50 MG TABLET PO ×2 (15:51→20:09)
[2024-12-21] MEDS: QUEtiapine Fumarate 25 MG TABLET PO (18:09)
[2024-12-21 19:06] VITALS: BP 109/59; PULSE 84; RESP 18; TEMP 36.3; O2SAT 97
[2024-12-21] MEDS: Magnesium Oxide 400 MG TABLET 200 MG PO (20:08)
[2024-12-21] MEDS: Tamsulosin HCL 0.4 MG CAPSULE PO (20:08)
[2024-12-21] MEDS: traZODone HCL 50 MG TABLET PO (20:10)
[2024-12-21] MEDS: Enoxaparin Sodium 40 MG/0.4 ML SYRINGE SUBCUT (23:10)
[2024-12-22 03:14] VITALS: BP 112/60; PULSE 80; RESP 18; TEMP 36.2; O2SAT 97
[2024-12-22 07:52] VITALS: BP 123/62; PULSE 93; RESP 18; TEMP 36.3; O2SAT 96
[2024-12-22] MEDS: Multivitamin TABLET 1 TAB PO (08:18)
[2024-12-22] MEDS: 0.9 % Sodium Chloride Flush 3 ML SYRINGE IVFLUSH (08:19)
[2024-12-22] MEDS: Escitalopram Oxalate 10 MG TABLET PO (08:19)
--- NOTE | 2024-12-22 12:59 | MHC.CM.PN ---
EMR REVIEWED . PT REMAINS RESTLESS, CONFUSED. CM MET WITH DAUGHTER/SPOUSE AT BEDSIDE. DAUGHTER DOES NOT WANT MH APPLICATION COMPLETED. PER DAUGHTER, SHE WOULD LIKE P.T. SEE HIM WHEN MORE STABILIZED ON MED TAPER, PENDING RESULTS, STR VS HOME WITH VNA AND FAMILY SUPPORT. PER PSYCH NOTE, MAY QUALIFY FOR [facility] PSYCH STAY? CM IS FOLLOWING FOR A PLAN.
--- NOTE | 2024-12-22 12:59 | MHC.SL.SWA ---
Speech Pathologist Impression: Oralpharyngeal Dysphagia Risk of Aspiration Due to: Neurological Condition Reduced Cognition Dysphasia Diet Status: Recommend continue on Ground Mechanical (NDD2) and UPGRADE to THIN liquids (NO STRAW) pills crushed in puree. Liquid Consistency and Strategies for Safe Swallow: Liquid Intake Recommendation: Thin Liquid Intake Strategies: Small Sips No Straws Solid Food Consistency: Dietary Recommendations: Grnd/Mech Altered (NDD2) Additional Modifications to Solid Foods: Patient presents with mild to moderate oropharyngeal dysphagia, in the setting of dementia. Patient requires direct supervision at meal time. He will need frequent cues for safe eating strategies and assistance feeding at times. Recommend a GROUND/MECH ALTERED (NDD2) diet for ease of mastication, as patient presents with missing teeth, and THIN liquids, pills CRUSHED in PUREE. Oral Medication Intake: Crushed with Puree Please contact the pharmacy regarding appropriate crushable or liquid drug formulations that are available whenever modified delivery is recommended. Compensatory Strategies and Precautions to be Taken for Safe Swallow: Sitting Upright (90 deg) No Straw Liquids from Cup Small Bites and Sips Alternate Liquids/Solids Supervision While Eating and Drinking for Safe Swallow: Total Assistance (1:1) Foods to Avoid: Hard, sticky solids Mixed consistencies Swallowing Recommended Treatments: Compens. Strategy Educat. Recommendation for Speech: Inpatient Speech Therapy Insurance And Benefits Clerk Clinican/Clinical Fellow: Yes: Luisa Rodríguez Supervisory Statement: I have reviewed and agree with the student/clinical fellow's documentation: Yes Speech Language Pathologist: Shelley Gamez M.A., CCC-[employer]
[2024-12-22] MEDS: QUEtiapine Fumarate 50 MG TABLET PO (14:02)
--- NOTE | 2024-12-22 15:05 | P.PNIM_ITS ---
Subjective Subjective Date of Service: 12/22/24 Interval History: Patient verbalizing not making much sense, ambulated to bathroom with walker/ 1 assist Tolerating breakfast no acute events overnight, no behavioral change. Review of Systems Unable to obtain due to mental status Physical Exam 2 Vital Signs: Vital Signs: Last Vital Signs Temp 97.3 F 12/22/24 07:52 Pulse 93 12/22/24 07:52 Resp 18 12/22/24 07:52 BP 123/62 12/22/24 07:52 Pulse Ox 96 12/22/24 07:52 O2 Del Method Room Air 12/22/24 07:52 BMI result Body Mass Index 22.4 Const: Other: General resting comfortably in no acute distress. Neck no JVD. CVS regular rate rhythm, Respiratory lungs clear to auscultation, no respiratory distress Gastrointestinal abdomen soft, non tender, bowel sounds audible Extremities no edema. Neuro moving all 4 extremity, speech nonsensical, not following commands Skin no rash Objective Data Active Medications Acetaminophen (Acetaminophen 325 Mg Tablet) 975 mg PO Q6H PRN PRN Reason: Pain, Mild 1-3,fever,headache Calcium Carbonate (Calcium Carbonate 750 Mg Tab.Chew) 750 mg PO Q4H PRN PRN Reason: Heartburn Enoxaparin Sodium (Enoxaparin Sodium 40 Mg/0.4 Ml Syringe) 40 mg SUBCUT Q24H [facility] Last Admin: 12/21/24 23:10 Dose: 40 mg Documented By: BENI Escitalopram Oxalate (Escitalopram Oxalate 10 Mg Tablet) 10 mg PO DAILY [facility] Last Admin: 12/22/24 08:19 Dose: 10 mg Documented By: GABY Magnesium Hydroxide (Milk Of Magnesia 30 Ml Oral.Susp) 30 ml PO DAILY PRN PRN Reason: Constipation Magnesium Oxide (Magnesium Oxide 400 Mg Tablet) 200 mg PO BEDTIME [facility] Last Admin: 12/21/24 20:08 Dose: 200 mg Documented By: BENI Melatonin (Melatonin 3 Mg Tablet) 6 mg PO BEDTIME PRN PRN Reason: Insomnia Multivitamins/Vitamin C (Multivitamin Tablet) 1 tab PO DAILY [facility] Last Admin: 12/22/24 08:18 Dose: 1 tab Documented By: GABY Ondansetron HCl (Ondansetron Hcl 4 Mg/2 Ml Vial) 4 mg IVPUSH Q8H PRN PRN Reason: Nausea and Vomiting Polyethylene Glycol (Polyethylene Glycol 3350 17 Gm Powd.Pack) 17 gm PO DAILY PRN PRN Reason: Constipation Quetiapine Fumarate (Quetiapine Fumarate 25 Mg Tablet) 25 mg PO Q6H PRN PRN Reason: Anxiety, agitation Last Admin: 12/21/24 18:09 Dose: 25 mg Documented By: GABY Quetiapine Fumarate (Quetiapine Fumarate 50 Mg Tablet) 50 mg PO BID@1500,2100 [facility] Last Admin: 12/22/24 14:02 Dose: 50 mg Documented By: GABY Sodium Chloride (0.9 % Sodium Chloride Flush 3 Ml Syringe) 3 ml IVFLUSH QSHIFT [facility] Last Admin: 12/22/24 08:19 Dose: 3 ml Documented By: GABY Tamsulosin HCl (Tamsulosin Hcl 0.4 Mg Capsule) 0.4 mg PO BEDTIME [facility] Last Admin: 12/21/24 20:08 Dose: 0.4 mg Documented By: BENI Trazodone HCl (Trazodone Hcl 50 Mg Tablet) 50 mg PO BEDTIME [facility] Last Admin: 12/21/24 20:10 Dose: 50 mg Documented By: BENI Labs 12/20/24 03:40 12/20/24 03:40 Microbiology Microbiology Results: Microbiology 12/19/24 Unknown Urine Culture - Final Urine clean catch - Clean Catch Midstream No growth. Assessment and Plan (1) Major neurocognitive disorder: Status: Acute Plan 84-year-old male with a past medical history significant for dementia, recently released from [facility] where he was admitted from 12/02-12/08 for frequent falls. Workup was negative and he was sent to a nursing facility where he was aggressive to the staff and sent back to the emergency room. The patient has been observed in the emergency department since 12/08, now admission recommended due to delirium, awaiting a psych bed. # Delirium secondary to advanced dementia, - no aggressive behavior noted , likely at baseline - Chest x-ray unremarkable on admission - WBC normal, vitals stable, no sepsis or sign of acute infection - UA 1+ bacteria, 6-10 WBC, small leukocyte esterase, urine culture neg. - black was placed due to retention on 12/13, Black now removed, voiding without difficulty. - just completed 7 day course of ceftin - case discussed with psych , Seroquel being gradually weaned, continue escitalopram, trazodone -PT recommend 24/7 care or long-term care upon discharge, due to poor safety awareness, confusion and likely no carry over, with skilled PT services. # unspecified advanced dementia DNR VTE prophy: lovenox Pt with advanced dementia requiring continued inpatient admission for further psychiatric care and safe disposition. Quality Stroke Does the patient have a stroke diagnosis?: No VTE Prior VTE?: No VTE Risk Level:: Medical - moderate - high VTE Device Contraindication: Treatment Not Indicated VTE Drug Contraindication: N/A - Med Ordered
[2024-12-22 15:30] VITALS: BP 120/71; PULSE 88; RESP 18; TEMP 36.3; O2SAT 96
[2024-12-22] MEDS: QUEtiapine Fumarate 25 MG TABLET PO ×2 (17:02→17:59)
[2024-12-22 20:30] VITALS: BP 96/59; PULSE 84; RESP 18; TEMP 36.2; O2SAT 98
--- NOTE | 2024-12-22 22:42 | PC.NURSE ---
Pt is sound asleep and not able to take meds safely. Pt was given multiple doses of seroquel on prior shift and he is sleeping very soundly at this time. Returned pt's meds to [facility]
[2024-12-22] MEDS: Enoxaparin Sodium 40 MG/0.4 ML SYRINGE SUBCUT (23:58)
[2024-12-23] VITALS: RESP 16
[2024-12-23] MEDS: 0.9 % Sodium Chloride Flush 3 ML SYRINGE IVFLUSH ×4 (00:43→22:05)
[2024-12-23 05:52] VITALS: BP 121/59; PULSE 91; RESP 18; TEMP 36.3
[2024-12-23 08:19] VITALS: BP 117/63; PULSE 91; RESP 18; TEMP 36.6; O2SAT 97
[2024-12-23] MEDS: Multivitamin TABLET 1 TAB PO (08:22)
[2024-12-23] MEDS: QUEtiapine Fumarate 25 MG TABLET PO ×4 (08:22→15:53)
[2024-12-23] MEDS: Escitalopram Oxalate 10 MG TABLET PO (08:22)
--- NOTE | 2024-12-23 10:14 | P.PNIM_ITS ---
Subjective Subjective Date of Service: 12/23/24 Interval History: Slept well last night but this morning trying to get out of bed, verbalizing but not making sense, no acute events overnight. Review of Systems Unable to obtain due to mental status. Physical Exam 2 Vital Signs: Vital Signs: Last Vital Signs Temp 97.8 F 12/23/24 08:19 Pulse 91 12/23/24 08:19 Resp 18 12/23/24 08:19 BP 117/63 12/23/24 08:19 Pulse Ox 97 12/23/24 08:19 O2 Del Method Room Air 12/23/24 08:19 BMI result Body Mass Index 22.4 Const: Other: General resting comfortably in no acute distress. Neck no JVD. CVS regular rate rhythm, Respiratory lungs clear to auscultation, no respiratory distress Gastrointestinal abdomen soft, non tender, bowel sounds audible Extremities no edema. Neuro moving all 4 extremity, face symmetrical, speech nonsensical Skin no rash Objective Data Active Medications Acetaminophen (Acetaminophen 325 Mg Tablet) 975 mg PO Q6H PRN PRN Reason: Pain, Mild 1-3,fever,headache Calcium Carbonate (Calcium Carbonate 750 Mg Tab.Chew) 750 mg PO Q4H PRN PRN Reason: Heartburn Enoxaparin Sodium (Enoxaparin Sodium 40 Mg/0.4 Ml Syringe) 40 mg SUBCUT Q24H [facility] Last Admin: 12/22/24 23:58 Dose: 40 mg Documented By: JELANI Escitalopram Oxalate (Escitalopram Oxalate 10 Mg Tablet) 10 mg PO DAILY [facility] Last Admin: 12/23/24 08:22 Dose: 10 mg Documented By: CHETAN Magnesium Hydroxide (Milk Of Magnesia 30 Ml Oral.Susp) 30 ml PO DAILY PRN PRN Reason: Constipation Magnesium Oxide (Magnesium Oxide 400 Mg Tablet) 200 mg PO BEDTIME [facility] Last Admin: 12/22/24 22:41 Dose: Not Given Documented By: STEPHAN Non-Admin Reason: Patient Asleep Melatonin (Melatonin 3 Mg Tablet) 6 mg PO BEDTIME PRN PRN Reason: Insomnia Multivitamins/Vitamin C (Multivitamin Tablet) 1 tab PO DAILY [facility] Last Admin: 12/23/24 08:22 Dose: 1 tab Documented By: CHETAN Ondansetron HCl (Ondansetron Hcl 4 Mg/2 Ml Vial) 4 mg IVPUSH Q8H PRN PRN Reason: Nausea and Vomiting Polyethylene Glycol (Polyethylene Glycol 3350 17 Gm Powd.Pack) 17 gm PO DAILY PRN PRN Reason: Constipation Quetiapine Fumarate (Quetiapine Fumarate 25 Mg Tablet) 25 mg PO Q6H PRN PRN Reason: Anxiety, agitation Last Admin: 12/23/24 08:22 Dose: 25 mg Documented By: CHETAN Quetiapine Fumarate (Quetiapine Fumarate 25 Mg Tablet) 25 mg PO BID@1500,2100 [facility] Last Admin: 12/22/24 22:42 Dose: Not Given Documented By: STEPHAN Non-Admin Reason: Patient Asleep Sodium Chloride (0.9 % Sodium Chloride Flush 3 Ml Syringe) 3 ml IVFLUSH QSHIFT [facility] Last Admin: 12/23/24 08:31 Dose: 3 ml Documented By: CHETAN Tamsulosin HCl (Tamsulosin Hcl 0.4 Mg Capsule) 0.4 mg PO BEDTIME [facility] Last Admin: 12/22/24 22:42 Dose: Not Given Documented By: STEPHAN Non-Admin Reason: Patient Asleep Trazodone HCl (Trazodone Hcl 50 Mg Tablet) 50 mg PO BEDTIME [facility] Last Admin: 12/22/24 22:42 Dose: Not Given Documented By: STEPHAN Non-Admin Reason: Patient Asleep Labs 12/20/24 03:40 12/20/24 03:40 Assessment and Plan (1) Major neurocognitive disorder: Status: Acute Plan 84-year-old male with a past medical history significant for dementia, recently released from [facility] where he was admitted from 12/02-12/08 for frequent falls. Workup was negative and he was sent to a nursing facility where he was aggressive to the staff and sent back to the emergency room. The patient has been observed in the emergency department since 12/08, now admission recommended due to delirium, awaiting a psych bed. # Delirium secondary to advanced dementia, - no aggressive behavior noted , likely at baseline - Chest x-ray unremarkable on admission - WBC normal, vitals stable, no sepsis or sign of acute infection - UA 1+ bacteria, 6-10 WBC, small leukocyte esterase, urine culture neg, finished 7 day course Ceftin. - black was placed due to retention on 12/13, Black now removed, voiding without difficulty. - case discussed with psych , Seroquel being gradually weaned, now on 25 mg at 15:00 and 21:00, continue escitalopram, trazodone - patient will have repeat PT on Wednesday,if patient does not qualify for short- term rehab ,patient will be discharged home with VNA and family support # unspecified advanced dementia DNR VTE prophy: lovenox Pt with advanced dementia requiring continued inpatient admission for medication adjustment as per Psychiatry and safe disposition. Quality Stroke Does the patient have a stroke diagnosis?: No VTE Prior VTE?: No VTE Risk Level:: Medical - moderate - high VTE Device Contraindication: Treatment Not Indicated VTE Drug Contraindication: N/A - Med Ordered
[2024-12-23] MEDS: OLANZapine ODT 10 MG TAB.RAPDIS TRANSLINGU (16:00)
[2024-12-23 16:10] VITALS: BP 117/60; PULSE 88; RESP 18; TEMP 37.1; O2SAT 98
[2024-12-23 18:00] VITALS: BP 130/54; PULSE 98; RESP 18; TEMP 36.3
[2024-12-23] MEDS: traZODone HCL 50 MG TABLET PO (19:49)
[2024-12-23] MEDS: QUEtiapine Fumarate 50 MG TABLET PO (19:49)
[2024-12-23] MEDS: Magnesium Oxide 400 MG TABLET 200 MG PO (19:52)
[2024-12-23] MEDS: Enoxaparin Sodium 40 MG/0.4 ML SYRINGE SUBCUT (22:03)
[2024-12-24] MEDS: QUEtiapine Fumarate 25 MG TABLET PO ×3 (01:57→23:04)
--- NOTE | 2024-12-24 03:10 | PC.NURSE ---
Addendum entered by Marj Arias RN 12/24/24 03:14: PRIOR TO MEDICATION, ATTEMPTS TRIED WERE, REPOSITIONING, CONVERSATION, PUDDING, LIGHTS DIMMED, REASSURANCE, WARM BLANKET WITH LITTLE TO NO EFFECT. Original Note: 0200- PRN SEROQUEL DOSE ADMINISTERED PATIENT REMAINS RESTLESS,STILL AWAKE, RAMBLING, DISROBING, PULLING AT BED SHEETS, TOUCHING WRAPPED IV SITE....NO LONGER WITH A SITTER AT BEDSIDE, CAMERA AND BED ALARM IN USE, VERY FREQUENT WALK IN CHECKS, ALSO TIME SPENT IN ROOM AT BEDSIDE ALSO FOR PATIENT SAFETY. CONTIUE TO MONITOR CLOSELY.
[2024-12-24 03:57] VITALS: RESP 18
[2024-12-24] MEDS: 0.9 % Sodium Chloride Flush 3 ML SYRINGE IVFLUSH ×3 (08:22→20:51)
[2024-12-24] MEDS: Multivitamin TABLET 1 TAB PO (09:11)
[2024-12-24] MEDS: Escitalopram Oxalate 10 MG TABLET PO (09:11)
--- NOTE | 2024-12-24 11:13 | P.PNIM_ITS ---
Subjective Subjective Date of Service: 12/24/24 Interval History: Patient's slept well overnight, this morning tolerated breakfast, appears calm, continue to verbalize not making sense. Yesterday patient was noted to be restless agitated trying to get out of bed, aggressive with staff and throwing equipment, received Zyprexa 10 mg x1 and additional dose of prn Seroquel. Review of Systems Unable to obtain review of system due to underlying dementia. Physical Exam 2 Vital Signs: Vital Signs: Last Vital Signs Temp 97.3 F 12/23/24 18:00 Pulse 98 12/23/24 18:00 Resp 18 12/24/24 03:57 BP 130/54 L 12/23/24 18:00 Pulse Ox 98 12/23/24 16:10 O2 Del Method Room Air 12/23/24 18:00 O2 Flow Rate 97 12/23/24 18:00 BMI result Body Mass Index 22.4 Const: Other: General resting comfortably in no acute distress. Neck no JVD. CVS regular rate rhythm, Respiratory lungs clear to auscultation, no respiratory distress Gastrointestinal abdomen soft, non tender, bowel sounds audible Extremities no edema. Neuro moving all 4 extremity, face symmetrical, speech nonsensical Skin no rash Objective Data Active Medications Acetaminophen (Acetaminophen 325 Mg Tablet) 975 mg PO Q6H PRN PRN Reason: Pain, Mild 1-3,fever,headache Calcium Carbonate (Calcium Carbonate 750 Mg Tab.Chew) 750 mg PO Q4H PRN PRN Reason: Heartburn Enoxaparin Sodium (Enoxaparin Sodium 40 Mg/0.4 Ml Syringe) 40 mg SUBCUT Q24H [facility] Last Admin: 12/23/24 22:03 Dose: 40 mg Documented By: RISSA Escitalopram Oxalate (Escitalopram Oxalate 10 Mg Tablet) 10 mg PO DAILY [facility] Last Admin: 12/24/24 09:11 Dose: 10 mg Documented By: UCHE Magnesium Hydroxide (Milk Of Magnesia 30 Ml Oral.Susp) 30 ml PO DAILY PRN PRN Reason: Constipation Magnesium Oxide (Magnesium Oxide 400 Mg Tablet) 200 mg PO BEDTIME [facility] Last Admin: 12/23/24 19:52 Dose: 200 mg Documented By: RISSA Melatonin (Melatonin 3 Mg Tablet) 6 mg PO BEDTIME PRN PRN Reason: Insomnia Multivitamins/Vitamin C (Multivitamin Tablet) 1 tab PO DAILY [facility] Last Admin: 12/24/24 09:11 Dose: 1 tab Documented By: UCHE Ondansetron HCl (Ondansetron Hcl 4 Mg/2 Ml Vial) 4 mg IVPUSH Q8H PRN PRN Reason: Nausea and Vomiting Polyethylene Glycol (Polyethylene Glycol 3350 17 Gm Powd.Pack) 17 gm PO DAILY PRN PRN Reason: Constipation Quetiapine Fumarate (Quetiapine Fumarate 25 Mg Tablet) 25 mg PO Q6H PRN PRN Reason: Anxiety, agitation Last Admin: 12/24/24 09:12 Dose: 25 mg Documented By: UCHE Quetiapine Fumarate (Quetiapine Fumarate 50 Mg Tablet) 50 mg PO BID@1500,2100 [facility] Last Admin: 12/23/24 19:49 Dose: 50 mg Documented By: RISSA Sodium Chloride (0.9 % Sodium Chloride Flush 3 Ml Syringe) 3 ml IVFLUSH QSHIFT [facility] Last Admin: 12/24/24 08:22 Dose: 3 ml Documented By: UCHE Tamsulosin HCl (Tamsulosin Hcl 0.4 Mg Capsule) 0.4 mg PO BEDTIME [facility] Last Admin: 12/23/24 19:55 Dose: Not Given Documented By: RISSA Non-Admin Reason: unable to crush Trazodone HCl (Trazodone Hcl 50 Mg Tablet) 50 mg PO BEDTIME [facility] Last Admin: 12/23/24 19:49 Dose: 50 mg Documented By: RISSA Labs 12/20/24 03:40 12/20/24 03:40 Assessment and Plan (1) Delirium: Status: Acute (2) Major neurocognitive disorder: Status: Acute Plan 84-year-old male with a past medical history significant for dementia, recently released from [facility] where he was admitted from 12/02-12/08 for frequent falls. Workup was negative and he was sent to a nursing facility where he was aggressive to the staff and sent back to the emergency room. The patient has been observed in the emergency department since 12/08, now admission recommended due to delirium, awaiting a psych bed. # Delirium secondary to advanced dementia, - noted to have aggressive behavior yesterday, improved with additional dose of Seroquel and Zyprexa, likely due to lowering dose of Seroquel, placed back on Seroquel 50 mg at 15:00 and 21:00, follow clinical course - Chest x-ray unremarkable on admission - WBC normal, vitals stable, no sepsis or sign of acute infection - UA 1+ bacteria, 6-10 WBC, small leukocyte esterase, urine culture neg, finished 7 day course Ceftin. - black was placed due to retention on 12/13, Black now removed, voiding without difficulty. - continue escitalopram, trazodone - patient will have repeat PT on Wednesday,if patient does not qualify for short- term rehab ,patient will be discharged home with VNA and family support # unspecified advanced dementia # urinary retention continue Flomax DNR VTE prophy: lovenox Pt with advanced dementia requiring continued inpatient admission for medication adjustment as per Psychiatry and safe disposition. Quality Stroke Does the patient have a stroke diagnosis?: No VTE Prior VTE?: No VTE Risk Level:: Medical - moderate - high VTE Device Contraindication: Treatment Not Indicated VTE Drug Contraindication: N/A - Med Ordered
[2024-12-24] MEDS: QUEtiapine Fumarate 50 MG TABLET PO ×2 (13:56→20:03)
[2024-12-24 17:19] VITALS: BP 102/53; PULSE 87; RESP 16; TEMP 37; O2SAT 95
[2024-12-24] MEDS: Melatonin 3 MG TABLET 6 MG PO (20:02)
[2024-12-24] MEDS: Acetaminophen 325 MG TABLET 975 MG PO (20:02)
[2024-12-24] MEDS: Magnesium Oxide 400 MG TABLET 200 MG PO (20:03)
[2024-12-24] MEDS: Tamsulosin HCL 0.4 MG CAPSULE PO (20:03)
[2024-12-24] MEDS: traZODone HCL 50 MG TABLET PO (20:03)
[2024-12-24] MEDS: Enoxaparin Sodium 40 MG/0.4 ML SYRINGE SUBCUT (22:53)
[2024-12-25 05:11] VITALS: BP 168/70; PULSE 77; RESP 16; TEMP 36.8; O2SAT 93
[2024-12-25 07:46] VITALS: BP 110/56; PULSE 69; RESP 16; TEMP 36.8; O2SAT 99
[2024-12-25] MEDS: Escitalopram Oxalate 10 MG TABLET PO (07:59)
[2024-12-25] MEDS: Multivitamin TABLET 1 TAB PO (07:59)
[2024-12-25] MEDS: QUEtiapine Fumarate 25 MG TABLET PO ×4 (07:59→20:33)
[2024-12-25] MEDS: 0.9 % Sodium Chloride Flush 3 ML SYRINGE IVFLUSH ×3 (08:06→20:54)
--- NOTE | 2024-12-25 10:44 | HO.PM.IMPN ---
Subjective Subjective Date of Service: 12/30/24 Interval History: History of advanced dementia, sent to emergency room from nursing facility due to aggressive behavior to the staff. Patient was kept under observation in ED since 12/08 through 12/19 subsequently admit to hospitalist service due to concern for UTI, urinary retention. Unable to obtain meaningful history due to advanced dementia, nonsensical speech. Patient noted to be aggressive/restless 2 days ago since Seroquel dose was reduced Placed back on Seroquel 50 mg Review of Systems Unable to obtain due to mental status Physical Exam Vital Signs: Vital Signs: Last Vital Signs Temp 98.3 F 12/25/24 07:46 Pulse 69 12/25/24 07:46 Resp 16 12/25/24 07:46 BP 110/56 L 12/25/24 07:46 Pulse Ox 99 12/25/24 07:46 O2 Del Method Room Air 12/25/24 07:46 O2 Flow Rate 97 12/23/24 18:00 BMI result Body Mass Index 22.4 Const: Other: General resting comfortably in no acute distress. Neck no JVD. CVS regular rate rhythm, Respiratory lungs clear to auscultation, no respiratory distress Gastrointestinal abdomen soft, non tender, bowel sounds audible Extremities no edema. Neuro moving all 4 extremity, face symmetrical, speech nonsensical Skin no rash Objective Data Active Medications Acetaminophen (Acetaminophen 325 Mg Tablet) 975 mg PO Q6H PRN PRN Reason: Pain, Mild 1-3,fever,headache Last Admin: 12/24/24 20:02 Dose: 975 mg Documented By: ALVINA Calcium Carbonate (Calcium Carbonate 750 Mg Tab.Chew) 750 mg PO Q4H PRN PRN Reason: Heartburn Enoxaparin Sodium (Enoxaparin Sodium 40 Mg/0.4 Ml Syringe) 40 mg SUBCUT Q24H [facility] Last Admin: 12/24/24 22:53 Dose: 40 mg Documented By: ALVINA Escitalopram Oxalate (Escitalopram Oxalate 10 Mg Tablet) 10 mg PO DAILY [facility] Last Admin: 12/25/24 07:59 Dose: 10 mg Documented By: ADDIE Magnesium Hydroxide (Milk Of Magnesia 30 Ml Oral.Susp) 30 ml PO DAILY PRN PRN Reason: Constipation Magnesium Oxide (Magnesium Oxide 400 Mg Tablet) 200 mg PO BEDTIME [facility] Last Admin: 12/24/24 20:03 Dose: 200 mg Documented By: ALVINA Melatonin (Melatonin 3 Mg Tablet) 6 mg PO BEDTIME PRN PRN Reason: Insomnia Last Admin: 12/24/24 20:02 Dose: 6 mg Documented By: ALVINA Multivitamins/Vitamin C (Multivitamin Tablet) 1 tab PO DAILY [facility] Last Admin: 12/25/24 07:59 Dose: 1 tab Documented By: ADDIE Ondansetron HCl (Ondansetron Hcl 4 Mg/2 Ml Vial) 4 mg IVPUSH Q8H PRN PRN Reason: Nausea and Vomiting Polyethylene Glycol (Polyethylene Glycol 3350 17 Gm Powd.Pack) 17 gm PO DAILY PRN PRN Reason: Constipation Quetiapine Fumarate (Quetiapine Fumarate 25 Mg Tablet) 25 mg PO Q6H PRN PRN Reason: Anxiety, agitation Last Admin: 12/25/24 07:59 Dose: 25 mg Documented By: ADDIE Quetiapine Fumarate (Quetiapine Fumarate 50 Mg Tablet) 50 mg PO BID@1500,2100 [facility] Last Admin: 12/24/24 20:03 Dose: 50 mg Documented By: ALVINA Sodium Chloride (0.9 % Sodium Chloride Flush 3 Ml Syringe) 3 ml IVFLUSH QSHIFT [facility] Last Admin: 12/25/24 08:06 Dose: 3 ml Documented By: ADDIE Tamsulosin HCl (Tamsulosin Hcl 0.4 Mg Capsule) 0.4 mg PO BEDTIME [facility] Last Admin: 12/24/24 20:03 Dose: 0.4 mg Documented By: ALVINA Trazodone HCl (Trazodone Hcl 50 Mg Tablet) 50 mg PO BEDTIME [facility] Last Admin: 12/24/24 20:03 Dose: 50 mg Documented By: ALVINA Labs 12/20/24 03:40 12/20/24 03:40 Assessment and Plan (1) Delirium: Status: Acute (2) Major neurocognitive disorder: Status: Acute Plan 84-year-old male with a past medical history significant for dementia, recently released from [facility] where he was admitted from 12/02-12/08 for frequent falls. Workup was negative and he was sent to a nursing facility where he was aggressive to the staff and sent back to the emergency room. The patient has been observed in the emergency department since 12/08, now admission recommended due to delirium, awaiting a psych bed. # Delirium secondary to advanced dementia, - no acute issues in last 24, continue Seroquel scheduled twice daily and as needed q6h. - Chest x-ray unremarkable on admission - WBC normal, vitals stable, no sepsis or sign of acute infection - UA 1+ bacteria, 6-10 WBC, small leukocyte esterase, urine culture neg, finished 7 day course Ceftin. - black was placed due to retention on 12/13, Black now removed, voiding without difficulty. - continue escitalopram, trazodone - patient will have repeat PT on Wednesday,if patient does not qualify for short-term rehab ,patient will be discharged home with VNA and family support # unspecified advanced dementia # urinary retention continue Flomax DNR VTE prophy: lovenox Pt with advanced dementia requiring continued inpatient admission for medication adjustment as per Psychiatry and safe disposition. Quality Stroke Does the patient have a stroke diagnosis?: No VTE Prior VTE?: No VTE Risk Level:: Medical - moderate - high VTE Device Contraindication: Treatment Not Indicated VTE Drug Contraindication: N/A - Med Ordered
--- NOTE | 2024-12-25 14:39 | MHC.SL.SWA ---
Speech Pathologist Impression: Oralpharyngeal Dysphagia in presence of cognitive limitations Risk of Aspiration Due to: Neurological Condition Reduced Cognition Dysphasia Diet Status: Recommend continue on Ground Mechanical (NDD2), THIN liquids, pills crushed in puree. Liquid Consistency and Strategies for Safe Swallow: Liquid Intake Recommendation: Thin Liquid Intake Strategies: Small Sips No Straws Solid Food Consistency: Dietary Recommendations: Grnd/Mech Altered (NDD2) Additional Modifications to Solid Foods: Patient presents with mild to moderate oropharyngeal dysphagia, in the setting of dementia. Patient requires direct supervision at meal time. He will need frequent cues for safe eating strategies and assistance feeding at times. Recommend a GROUND/MECH ALTERED (NDD2) diet for ease of mastication, as patient presents with missing teeth, thin liquids, pills CRUSHED in PUREE. Oral Medication Intake: Crushed with Puree Please contact the pharmacy regarding appropriate crushable or liquid drug formulations that are available whenever modified delivery is recommended. Compensatory Strategies and Precautions to be Taken for Safe Swallow: Sitting Upright (90 deg) Liquids from Cup Liquids from Straw Small Bites and Sips Alternate Liquids/Solids Supervision While Eating and Drinking for Safe Swallow: Total Assistance (1:1) Foods to Avoid: Hard, sticky solids Mixed consistencies Swallowing Recommended Treatments: Compens. Strategy Educat. Recommendation for Speech: Inpatient Speech Therapy Comment: Pt seen for dysphagia treatment, sitter at bedside and OCCUPATIONAL THERAPY PROFESSOR present at start of TEMPERATURE REGULATOR PYROMETER visit. Pt sitting upright in chair, alert to others but confused, expressing his interest in tv, endorsing hunger. Pt unable to follow cues to clear throat/re-swallow, but reflexive throat clear/re-swallow occurred during conversation. Pt offered choices for PO bedside assessment. Pt cognitive/linguistic functioning remains highly variable, with good response timing but poor short term recall or orientation. Pt tolerated sips of thins by straw and by cup, and bites of soft solids without difficulty. Pt has 1:1 supervision at all times. OCCUPATIONAL THERAPY PROFESSOR relieving sitter provided with review of treatment observations at his request. TEMPERATURE REGULATOR PYROMETER recommends pt continue on Ground Mechanical (NDD2) and THIN liquids, straws ok; pills crushed in puree. TEMPERATURE REGULATOR PYROMETER will continue to follow. Frequency/Duration: Date Range for Service Req: Timeline to reassess: Digital Librarian Clinican/Clinical Fellow: No Supervisory Statement: I have reviewed and agree with the student/clinical fellow's documentation: N/A Speech Language Pathologist: Miranda Morillo M.S., [facility]-TEMPERATURE REGULATOR PYROMETER
[2024-12-25 15:25] VITALS: BP 160/111; PULSE 95; RESP 18; TEMP 37; O2SAT 92
[2024-12-25] MEDS: Magnesium Oxide 400 MG TABLET 200 MG PO (20:32)
[2024-12-25] MEDS: Tamsulosin HCL 0.4 MG CAPSULE PO (20:33)
[2024-12-25] MEDS: traZODone HCL 50 MG TABLET PO (20:33)
[2024-12-25] MEDS: Enoxaparin Sodium 40 MG/0.4 ML SYRINGE SUBCUT (22:33)
[2024-12-26 06:00] VITALS: BP 146/68; PULSE 96; RESP 18; TEMP 36.3; O2SAT 97
--- NOTE | 2024-12-26 08:15 | MHC.CM.PN ---
LATE ENTRY FOR 12/25: CM SPOKE WITH DAUGHTER /HCP YORDY REGARDING P.T. RE-EVAL THAT STATES PT IS STILL LTC/10/05 CARE. DAUGHTER VERY UPSET AND STATES YOUR HOSPITAL DID THIS TO MY FATHER , YOU ARE NOT ADVOCATING FOR MY FATHER . DAUGHTER REQUESTS TO SPEAK WITH MD/PSYCH AND A PT ADVOCATE. DAUGHTER IS NOT ABLE TO TAKE FATHER HOME AT THIS TIME AND NO PP FUNDS PER DAUGHTER . PSYCH NOTIFIED OF NEED TO SPEAK WITH DAUGHTER AND MD NOTIFIED. CONFERENCE CALL WITH DAUGHTER DONE WITH PT ADVOCATE, VIVIAN. DAUGHTER STATES SHE WAS ABLE TO SPEAK WITH PSYCH CLINICIAN AND WOULD LIKE TO PURSUE HOSPICE. REFERRAL MADE TO [facility] PER DAUGHTER REQUEST AND DAUGHTER STATES SHE WILL NEED TO SPEAK WITH HER MOTHER BEFORE FURTHER REFERRALS MADE. CM WILL CONT TO AWAIT RESPONSE FROM [facility] AND FOLLOW FOR PLAN.
[2024-12-26] MEDS: Escitalopram Oxalate 10 MG TABLET PO (08:29)
[2024-12-26] MEDS: Multivitamin TABLET 1 TAB PO (08:29)
[2024-12-26] MEDS: QUEtiapine Fumarate 25 MG TABLET PO ×3 (08:30→19:50)
[2024-12-26] MEDS: 0.9 % Sodium Chloride Flush 3 ML SYRINGE IVFLUSH ×3 (08:31→19:52)
[2024-12-26 08:37] VITALS: BP 139/65; PULSE 98; RESP 16; TEMP 36.8; O2SAT 97
--- NOTE | 2024-12-26 11:01 | HO.PSYCHPN ---
Subjective Subjective Reason For Visit: delirium Diagnostics Vital Signs (24Hr): Vital Signs - 24 hr 12/25/24 15:25 12/26/24 06:00 12/26/24 08:37 Temperature 98.6 F 97.3 F 98.2 F Pulse Rate 95 96 98 Respiratory Rate 18 18 16 Blood Pressure 160/111 H 146/68 H 139/65 Pulse Oximetry 92 97 97 Oxygen Delivery Method Room Air Room Air Room Air BMI result Body Mass Index 22.4 Labs 12/20/24 03:40 12/20/24 03:40 Imaging Radiology Impressions: ITS Impressions Chest X-Ray 12/11/24 06:56 IMPRESSION: Chronic interstitial lung disease with questionable mild interstitial lung edema versus small airway inflammatory disease. Electronically signed by: Wilver Hernandez MD 12/11/2024 08:25 AM EST RP Chest X-Ray 12/15/24 09:43 IMPRESSION: No acute cardiopulmonary abnormality. Electronically signed by: Rodri Lawson MD 12/15/2024 10:04 AM EST RP Medications Medications Current Medications Acetaminophen (Acetaminophen 325 Mg Tablet) 975 mg PO Q6H PRN PRN Reason: Pain, Mild 1-3,fever,headache Last Admin: 12/24/24 20:02 Dose: 975 mg Calcium Carbonate (Calcium Carbonate 750 Mg Tab.Chew) 750 mg PO Q4H PRN PRN Reason: Heartburn Enoxaparin Sodium (Enoxaparin Sodium 40 Mg/0.4 Ml Syringe) 40 mg SUBCUT Q24H [facility] Last Admin: 12/25/24 22:33 Dose: 40 mg Escitalopram Oxalate (Escitalopram Oxalate 10 Mg Tablet) 10 mg PO DAILY [facility] Last Admin: 12/26/24 08:29 Dose: 10 mg Magnesium Hydroxide (Milk Of Magnesia 30 Ml Oral.Susp) 30 ml PO DAILY PRN PRN Reason: Constipation Magnesium Oxide (Magnesium Oxide 400 Mg Tablet) 200 mg PO BEDTIME [facility] Last Admin: 12/25/24 20:32 Dose: 200 mg Melatonin (Melatonin 3 Mg Tablet) 6 mg PO BEDTIME PRN PRN Reason: Insomnia Last Admin: 12/24/24 20:02 Dose: 6 mg Multivitamins/Vitamin C (Multivitamin Tablet) 1 tab PO DAILY [facility] Last Admin: 12/26/24 08:29 Dose: 1 tab Ondansetron HCl (Ondansetron Hcl 4 Mg/2 Ml Vial) 4 mg IVPUSH Q8H PRN PRN Reason: Nausea and Vomiting Polyethylene Glycol (Polyethylene Glycol 3350 17 Gm Powd.Pack) 17 gm PO DAILY PRN PRN Reason: Constipation Quetiapine Fumarate (Quetiapine Fumarate 25 Mg Tablet) 25 mg PO Q6H PRN PRN Reason: Anxiety, agitation Last Admin: 12/26/24 08:30 Dose: 25 mg Quetiapine Fumarate (Quetiapine Fumarate 25 Mg Tablet) 25 mg PO BID@1500,2100 [facility] Last Admin: 12/25/24 20:33 Dose: 25 mg Sodium Chloride (0.9 % Sodium Chloride Flush 3 Ml Syringe) 3 ml IVFLUSH QSHIFT [facility] Last Admin: 12/26/24 08:31 Dose: 3 ml Tamsulosin HCl (Tamsulosin Hcl 0.4 Mg Capsule) 0.4 mg PO BEDTIME [facility] Last Admin: 12/25/24 20:33 Dose: 0.4 mg Trazodone HCl (Trazodone Hcl 50 Mg Tablet) 50 mg PO BEDTIME [facility] Last Admin: 12/25/24 20:33 Dose: 50 mg Allergies Allergies Allergy/AdvReac Type Severity Reaction Status Date / Time No Known Allergies Allergy Verified 12/08/24 17:54 Assessment & Plan Assessment & Plan (1) Delirium: Status: Acute Code(s): R41.0 - Disorientation, unspecified (2) Major neurocognitive disorder: Status: Acute Code(s): F03.90 - Unspecified dementia, unspecified severity, without behavioral disturbance, psychotic disturbance, mood disturbance, and anxiety Plan 84-year-old male with a past medical history significant for dementia, recently released from [facility] where he was admitted from 12/02-12/08 for frequent falls. Workup was negative and he was sent to a nursing facility where he was aggressive to the staff and sent back to the emergency room. The patient has been observed in the emergency department since 12/08, now admission recommended due to delirium, awaiting a psych bed. # Delirium secondary to advanced dementia, - noted to have aggressive behavior yesterday, improved with additional dose of Seroquel and Zyprexa, likely due to lowering dose of Seroquel, placed back on Seroquel 50 mg at 15:00 and 21:00, follow clinical course - Chest x-ray unremarkable on admission - WBC normal, vitals stable, no sepsis or sign of acute infection - UA 1+ bacteria, 6-10 WBC, small leukocyte esterase, urine culture neg, finished 7 day course Ceftin. - black was placed due to retention on 12/13, Black now removed, voiding without difficulty. - continue escitalopram, trazodone - patient will have repeat PT on Wednesday,if patient does not qualify for short-term rehab ,patient will be discharged home with VNA and family support # unspecified advanced dementia # urinary retention continue Flomax DNR VTE prophy: lovenox Pt with advanced dementia requiring continued inpatient admission for medication adjustment as per Psychiatry and safe disposition. Time Spent With Patient Time: Total time managing care of this patient today ____ minutes.
--- NOTE | 2024-12-26 11:12 | P.CNPS_ITS ---
History of Present Illness Date of Service: 12/26/24 Chief Complaint: delirium Sources of Information: patient interviewed, chart reviewed and crisis/core team assessment reviewed HPI Narrative: Interim Hx: pt sleeping most of the night. He is taking medications, allows care but does need redirection. No need for IM medications. But has been given prn seroquel with good effect. he presents as alert, attention is better, baseline not oriented to place, month or year. severe expressive and receptive aphasia. Past Psychiatric History: Inpt: none OP: none PCP prescribing psychotropic medications including olazanpine, seroquel, PMFSH Medical History Major neurocognitive disorder Delirium Diagnostics Vital Signs (24Hr): Vital Signs - 24 hr 12/25/24 15:25 12/26/24 06:00 12/26/24 08:37 Temperature 98.6 F 97.3 F 98.2 F Pulse Rate 95 96 98 Respiratory Rate 18 18 16 Blood Pressure 160/111 H 146/68 H 139/65 Pulse Oximetry 92 97 97 Oxygen Delivery Method Room Air Room Air Room Air BMI result Body Mass Index 22.4 Labs 12/20/24 03:40 12/20/24 03:40 Imaging Radiology Impressions: ITS Impressions Chest X-Ray 12/11/24 06:56 IMPRESSION: Chronic interstitial lung disease with questionable mild interstitial lung edema versus small airway inflammatory disease. Electronically signed by: Wilver Hernandez MD 12/11/2024 08:25 AM EST RP Chest X-Ray 12/15/24 09:43 IMPRESSION: No acute cardiopulmonary abnormality. Electronically signed by: Rodri Lawson MD 12/15/2024 10:04 AM EST RP Mental Status Exam Mental Status Exam Narrative: Appearance: wearing hospital gown, fair hygiene, thin, but not malnourished. In NAD but restless Behavior: poor attention at times looking at this information writer and saying I love you, attempting to kiss this information writer's hand Psychomotor: restless, not combative Speech: mumbles, regular tone/rhythm, spontaneous TP: expressive and some degree of receptive aphasia/ derailed TC: wanting food, to wanting to hold hands and kiss information writer Mood: good Affect: restless, periods of smiling, then mildly irritable SI: no HI: none VH/AH: appears internally preoccupied Delusions:somewhat suspicious Insight/judgment: impaired x2 Memory/cog: alert, not oriented to place, month year nor situation. Medications Medications Current Medications Acetaminophen (Acetaminophen 325 Mg Tablet) 975 mg PO Q6H PRN PRN Reason: Pain, Mild 1-3,fever,headache Last Admin: 12/24/24 20:02 Dose: 975 mg Calcium Carbonate (Calcium Carbonate 750 Mg Tab.Chew) 750 mg PO Q4H PRN PRN Reason: Heartburn Enoxaparin Sodium (Enoxaparin Sodium 40 Mg/0.4 Ml Syringe) 40 mg SUBCUT Q24H [facility] Last Admin: 12/25/24 22:33 Dose: 40 mg Escitalopram Oxalate (Escitalopram Oxalate 10 Mg Tablet) 10 mg PO DAILY [facility] Last Admin: 12/26/24 08:29 Dose: 10 mg Magnesium Hydroxide (Milk Of Magnesia 30 Ml Oral.Susp) 30 ml PO DAILY PRN PRN Reason: Constipation Magnesium Oxide (Magnesium Oxide 400 Mg Tablet) 200 mg PO BEDTIME [facility] Last Admin: 12/25/24 20:32 Dose: 200 mg Melatonin (Melatonin 3 Mg Tablet) 6 mg PO BEDTIME PRN PRN Reason: Insomnia Last Admin: 12/24/24 20:02 Dose: 6 mg Multivitamins/Vitamin C (Multivitamin Tablet) 1 tab PO DAILY [facility] Last Admin: 12/26/24 08:29 Dose: 1 tab Ondansetron HCl (Ondansetron Hcl 4 Mg/2 Ml Vial) 4 mg IVPUSH Q8H PRN PRN Reason: Nausea and Vomiting Polyethylene Glycol (Polyethylene Glycol 3350 17 Gm Powd.Pack) 17 gm PO DAILY PRN PRN Reason: Constipation Quetiapine Fumarate (Quetiapine Fumarate 25 Mg Tablet) 25 mg PO Q6H PRN PRN Reason: Anxiety, agitation Last Admin: 12/26/24 08:30 Dose: 25 mg Quetiapine Fumarate (Quetiapine Fumarate 25 Mg Tablet) 25 mg PO BID@1500,2100 [facility] Last Admin: 12/25/24 20:33 Dose: 25 mg Sodium Chloride (0.9 % Sodium Chloride Flush 3 Ml Syringe) 3 ml IVFLUSH QSHIFT [facility] Last Admin: 12/26/24 08:31 Dose: 3 ml Tamsulosin HCl (Tamsulosin Hcl 0.4 Mg Capsule) 0.4 mg PO BEDTIME [facility] Last Admin: 12/25/24 20:33 Dose: 0.4 mg Trazodone HCl (Trazodone Hcl 50 Mg Tablet) 50 mg PO BEDTIME [facility] Last Admin: 12/25/24 20:33 Dose: 50 mg Allergies Allergies Allergy/AdvReac Type Severity Reaction Status Date / Time No Known Allergies Allergy Verified 12/08/24 17:54 Assessment & Plan Assessment & Plan (1) Major neurocognitive disorder: Status: Acute Code(s): F03.90 - Unspecified dementia, unspecified severity, without behavioral disturbance, psychotic disturbance, mood disturbance, and anxiety (2) Delirium: Status: Acute Code(s): R41.0 - Disorientation, unspecified Plan Mr. Burnett is an 84 year-old male with hx of dementia, probably AD. He was brought via EMS same day he went to STR due to combative behaviors. He presents with s/s of delirium superimposed on dementia. He is currently now able to engage in STR due to increased confusions and poor attention r/t delirium. After discussing risks, benefits and alternative treatment options with daughter, who is HCP, agreed to d/c olanzapine as she reports he was overly sedated and dizzy,she also reports side effects with exelon and namenda and would like him to be off those two medications as well. Will scheduled seroquel 25mg po TID, add prn seroquel 25mg po q6h prn agitation. PLAN 1. continue management of delirium care- avoid oversedation, encourage proper hydration as he is not able to verbalize need for it and does need more assistance eating. 12/14/24--> pt continues to present as very confused, poor attention all symptoms of delirium, which does not seem to be resolving yet. I will increase seroquel to 50mg po TID, however, keeping in mind that delirium can last several weeks, avoid oversedation at night when he tries to ambulate. Monitor proper hydration as he can quickly dehydrate. CMP ordered today: BUN 21, Cr 0.79, no electrolyte abnormalities. Assist with mobility as possible. 12/15/24 continue seroquel 50mg po TID- HOLD if over sedation noted. AVOID OVERMEDICATION at night when he is attempting to ambulate. Judiciously maintain hydration and attempt to walk patient. If need IM medication for combative/aggressive behaviors (NOT FOR PATIENT ATTEMPTING TO GET OUT OF BED), use low dose of olanzapine 5mg q6h. NOTE that oversedation will be noted the following day, prolonging delirium as it increases risk of dehydration, normalization of circadian cycle. 12/18 consider [facility] for stabilization, containment and safety. referred to care team for admission to [facility]. 12/19 UA shows UTI, pending culture. Pt was going to [facility] no bed open. Discussed with case management considering admission to medicine treat delirium and UTI, psych to follow pt while on medicine. 12/20 medically admitted for delirium, pending urine culture. will decrease seroquel to 50mg po BID at 1500 and 2100. MAINTAIN ADECUATE HYDRATION, PATIENT NOT ABLE TO ASK FOR IT. ATTEMPT TO GET HIM OUT OF BED, EITHER WALK WITH ASSISTANCE SHORT DISTANCE OR CHANGE POSITION FROM LYING IN BED TO SITTING IN RECLINER. AVOID OVER SEDATION, DO NOT MEDICATE IF PT ATTEMPTING TO GET OUT OF BED, ATTEMPT TO REDIRECT BUT ALSO BE MINDFUL THAT PATIENT HAS SPENT A LOT OF TIME LYING IN BED. 12/26 improvement in attention, less s/s of delirium but underlying major neurocognitive disorder is advanced. severe expressive/ receptive aphasia, do wonder about some degree of frontal atrophy, otherwise seems dementia of AD type. Total time managing care of this patient today ____ minutes.
--- NOTE | 2024-12-26 11:18 | P.PNIM_ITS ---
Subjective Subjective Date of Service: 12/26/24 Interval History: Unable to obtain meaningful history due to advanced dementia, nonsensical speech. Review of Systems Unable to obtain review of system due to underlying dementia. Review of Systems: Yes Unobtainable due to mental condition and Unobtainable due to mental status Physical Exam 2 Vital Signs: Vital Signs: Last Vital Signs Temp 98.2 F 12/26/24 08:37 Pulse 98 12/26/24 08:37 Resp 16 12/26/24 08:37 BP 139/65 12/26/24 08:37 Pulse Ox 97 12/26/24 08:37 O2 Del Method Room Air 12/26/24 08:37 O2 Flow Rate 97 12/23/24 18:00 BMI result Body Mass Index 22.4 Const: Other: General resting comfortably in no acute distress. Neck no JVD. CVS regular rate rhythm, Respiratory lungs clear to auscultation, no respiratory distress Gastrointestinal abdomen soft, non tender, bowel sounds audible Extremities no edema. Neuro moving all 4 extremity, face symmetrical, speech nonsensical Skin no rash. Objective Data Active Medications Acetaminophen (Acetaminophen 325 Mg Tablet) 975 mg PO Q6H PRN PRN Reason: Pain, Mild 1-3,fever,headache Last Admin: 12/24/24 20:02 Dose: 975 mg Documented By: ALVINA Calcium Carbonate (Calcium Carbonate 750 Mg Tab.Chew) 750 mg PO Q4H PRN PRN Reason: Heartburn Enoxaparin Sodium (Enoxaparin Sodium 40 Mg/0.4 Ml Syringe) 40 mg SUBCUT Q24H [facility] Last Admin: 12/25/24 22:33 Dose: 40 mg Documented By: FLORA Escitalopram Oxalate (Escitalopram Oxalate 10 Mg Tablet) 10 mg PO DAILY [facility] Last Admin: 12/26/24 08:29 Dose: 10 mg Documented By: AUTUMN Magnesium Hydroxide (Milk Of Magnesia 30 Ml Oral.Susp) 30 ml PO DAILY PRN PRN Reason: Constipation Magnesium Oxide (Magnesium Oxide 400 Mg Tablet) 200 mg PO BEDTIME [facility] Last Admin: 12/25/24 20:32 Dose: 200 mg Documented By: FLORA Melatonin (Melatonin 3 Mg Tablet) 6 mg PO BEDTIME PRN PRN Reason: Insomnia Last Admin: 12/24/24 20:02 Dose: 6 mg Documented By: ALVINA Multivitamins/Vitamin C (Multivitamin Tablet) 1 tab PO DAILY [facility] Last Admin: 12/26/24 08:29 Dose: 1 tab Documented By: AUTUMN Ondansetron HCl (Ondansetron Hcl 4 Mg/2 Ml Vial) 4 mg IVPUSH Q8H PRN PRN Reason: Nausea and Vomiting Polyethylene Glycol (Polyethylene Glycol 3350 17 Gm Powd.Pack) 17 gm PO DAILY PRN PRN Reason: Constipation Quetiapine Fumarate (Quetiapine Fumarate 25 Mg Tablet) 25 mg PO Q6H PRN PRN Reason: Anxiety, agitation Last Admin: 12/26/24 08:30 Dose: 25 mg Documented By: AUTUMN Quetiapine Fumarate (Quetiapine Fumarate 25 Mg Tablet) 25 mg PO BID@1500,2100 [facility] Last Admin: 12/25/24 20:33 Dose: 25 mg Documented By: FLORA Sodium Chloride (0.9 % Sodium Chloride Flush 3 Ml Syringe) 3 ml IVFLUSH QSHIFT [facility] Last Admin: 12/26/24 08:31 Dose: 3 ml Documented By: AUTUMN Tamsulosin HCl (Tamsulosin Hcl 0.4 Mg Capsule) 0.4 mg PO BEDTIME [facility] Last Admin: 12/25/24 20:33 Dose: 0.4 mg Documented By: FLORA Trazodone HCl (Trazodone Hcl 50 Mg Tablet) 50 mg PO BEDTIME [facility] Last Admin: 12/25/24 20:33 Dose: 50 mg Documented By: FLORA Labs 12/20/24 03:40 12/20/24 03:40 Assessment and Plan (1) Delirium: Status: Acute Plan 84-year-old male with a past medical history significant for dementia, recently released from [facility] where he was admitted from 12/02-12/08 for frequent falls. Workup was negative and he was sent to a nursing facility where he was aggressive to the staff and sent back to the emergency room. The patient has been observed in the emergency department since 12/08, now admission recommended due to delirium, awaiting a psych bed. # Delirium secondary to advanced dementia, - noted to have aggressive behavior likely due to lowering dose of Seroquel, placed back on Seroquel 50 mg at 15:00 and 21:00, follow clinical course - Chest x-ray unremarkable on admission - WBC normal, vitals stable, no sepsis or sign of acute infection - UA 1+ bacteria, 6-10 WBC, small leukocyte esterase, urine culture neg, finished 7 day course Ceftin. - black was placed due to retention on 12/13, Black now removed, voiding without difficulty. - continue escitalopram, trazodone - PT eval: Recommend 10/05 CARE or LTC # unspecified advanced dementia # urinary retention continue Flomax DNR VTE prophy: lovenox Pt with advanced dementia requiring continued inpatient admission for medication adjustment as per Psychiatry and safe disposition. Quality Stroke Does the patient have a stroke diagnosis?: No VTE Prior VTE?: No VTE Risk Level:: Medical - moderate - high VTE Device Contraindication: Treatment Not Indicated VTE Drug Contraindication: N/A - Med Ordered
--- NOTE | 2024-12-26 13:33 | MHC.SLORD ---
Speech Language Pathology Order Status: Per RN, patient tolerating present diet of GROUND/MECH ALTERED (NDD2) and THIN liquids. He ate his breakfast today without difficulty, now sleeping soundly. ENGLISH LANGUAGE LEARNER TEACHER will f/u 1-2x to monitor tolerance and re-assess feeding needs.
--- NOTE | 2024-12-26 13:58 | MHC.CM.PN ---
Addendum entered by Nikki Judd 12/26/24 15:31: PT'S DAUGHTER SPOKE WITH [facility] REGARDING SERVICES AT THE [facility]. [facility] MACHINE BUNCH MAKER (MANUEL) CONTACTED CM WITH REQUEST FOR CLINICAL PPW TO REVIEW. ALL REQUESTED PPW SENT TO [phone] FOR REVIEW. MANUEL TO REVIEW AND RETURN CALL WITH DECISION. Original Note: CM CONTINUES TO AWAIT RESPONSE FROM [facility]. CM SPOKE WITH DAUGHTER/HCP YORDY IN REGARDS TO A HOSPICE REFERRAL FOR AN INFORMATIONAL WHILE WE AWAIT [facility]. YORDY IS AGREEABLE AND HAS NO PREFERENCE TO A HOSPICE AGENCY. REFERRAL SENT TO [facility] TO EVAL/HOSPICE INFORMATIONAL.
[2024-12-26 15:25] VITALS: BP 114/56; PULSE 94; RESP 19; TEMP 36.6; O2SAT 95
[2024-12-26 19:17] VITALS: BP 134/88; PULSE 87; RESP 16; TEMP 36.1; O2SAT 97
[2024-12-26] MEDS: traZODone HCL 50 MG TABLET PO (19:51)
[2024-12-26] MEDS: Magnesium Oxide 400 MG TABLET 200 MG PO (19:51)
[2024-12-26] MEDS: Tamsulosin HCL 0.4 MG CAPSULE PO (19:51)
[2024-12-26] MEDS: Enoxaparin Sodium 40 MG/0.4 ML SYRINGE SUBCUT (22:40)
[2024-12-27 05:45] VITALS: BP 132/65; PULSE 90; RESP 17; TEMP 36.4; O2SAT 99
[2024-12-27 07:22] VITALS: BP 123/62; PULSE 88; RESP 18; TEMP 36.8; O2SAT 95
[2024-12-27] MEDS: Escitalopram Oxalate 10 MG TABLET PO (07:40)
[2024-12-27] MEDS: Multivitamin TABLET 1 TAB PO (07:41)
[2024-12-27] MEDS: QUEtiapine Fumarate 25 MG TABLET PO ×4 (07:41→19:49)
--- NOTE | 2024-12-27 10:34 | HO.PM.IMPN ---
Subjective Subjective Date of Service: 12/27/24 Interval History: Unable to obtain meaningful history due to advanced dementia, nonsensical speech Review of Systems Unable to obtain review of system due to underlying dementia Physical Exam Vital Signs: Vital Signs: Last Vital Signs Temp 98.3 F 12/27/24 07:22 Pulse 88 12/27/24 07:22 Resp 18 12/27/24 07:22 BP 123/62 12/27/24 07:22 Pulse Ox 95 12/27/24 07:22 O2 Del Method Room Air 12/27/24 07:22 O2 Flow Rate 97 12/23/24 18:00 BMI result Body Mass Index 22.4 Const: Other: General resting comfortably in no acute distress. Neck no JVD. CVS regular rate rhythm, Respiratory lungs clear to auscultation, no respiratory distress Gastrointestinal abdomen soft, non tender, bowel sounds audible Extremities no edema. Neuro moving all 4 extremity, face symmetrical, speech nonsensical Skin no rash. Objective Data Active Medications Acetaminophen (Acetaminophen 325 Mg Tablet) 975 mg PO Q6H PRN PRN Reason: Pain, Mild 1-3,fever,headache Last Admin: 12/24/24 20:02 Dose: 975 mg Documented By: ALVINA Calcium Carbonate (Calcium Carbonate 750 Mg Tab.Chew) 750 mg PO Q4H PRN PRN Reason: Heartburn Enoxaparin Sodium (Enoxaparin Sodium 40 Mg/0.4 Ml Syringe) 40 mg SUBCUT Q24H [facility] Last Admin: 12/26/24 22:40 Dose: 40 mg Documented By: FLORA Escitalopram Oxalate (Escitalopram Oxalate 10 Mg Tablet) 10 mg PO DAILY [facility] Last Admin: 12/27/24 07:40 Dose: 10 mg Documented By: REGAN Magnesium Hydroxide (Milk Of Magnesia 30 Ml Oral.Susp) 30 ml PO DAILY PRN PRN Reason: Constipation Magnesium Oxide (Magnesium Oxide 400 Mg Tablet) 200 mg PO BEDTIME [facility] Last Admin: 12/26/24 19:51 Dose: 200 mg Documented By: FLORA Comments: Melatonin (Melatonin 3 Mg Tablet) 6 mg PO BEDTIME PRN PRN Reason: Insomnia Last Admin: 12/24/24 20:02 Dose: 6 mg Documented By: ALVINA Multivitamins/Vitamin C (Multivitamin Tablet) 1 tab PO DAILY [facility] Last Admin: 12/27/24 07:41 Dose: 1 tab Documented By: REGAN Ondansetron HCl (Ondansetron Hcl 4 Mg/2 Ml Vial) 4 mg IVPUSH Q8H PRN PRN Reason: Nausea and Vomiting Polyethylene Glycol (Polyethylene Glycol 3350 17 Gm Powd.Pack) 17 gm PO DAILY PRN PRN Reason: Constipation Quetiapine Fumarate (Quetiapine Fumarate 25 Mg Tablet) 25 mg PO Q6H PRN PRN Reason: Anxiety, agitation Last Admin: 12/27/24 07:41 Dose: 25 mg Documented By: REGAN Quetiapine Fumarate (Quetiapine Fumarate 25 Mg Tablet) 25 mg PO BID@1500,2100 [facility] Last Admin: 12/26/24 19:50 Dose: 25 mg Documented By: FLORA Sodium Chloride (0.9 % Sodium Chloride Flush 3 Ml Syringe) 3 ml IVFLUSH QSHIFT [facility] Last Admin: 12/26/24 19:52 Dose: 3 ml Documented By: FLORA Tamsulosin HCl (Tamsulosin Hcl 0.4 Mg Capsule) 0.4 mg PO BEDTIME [facility] Last Admin: 12/26/24 19:51 Dose: 0.4 mg Documented By: FLORA Trazodone HCl (Trazodone Hcl 50 Mg Tablet) 50 mg PO BEDTIME [facility] Last Admin: 12/26/24 19:51 Dose: 50 mg Documented By: FLORA Labs 12/20/24 03:40 12/20/24 03:40 Assessment and Plan (1) Delirium: Status: Acute Plan 84-year-old male with a past medical history significant for dementia, recently released from [facility] where he was admitted from 12/02-12/08 for frequent falls. Workup was negative and he was sent to a nursing facility where he was aggressive to the staff and sent back to the emergency room. The patient has been observed in the emergency department since 12/08, now admission recommended due to delirium, awaiting a psych bed. # Delirium secondary to advanced dementia, - noted to have aggressive behavior likely due to lowering dose of Seroquel, placed back on Seroquel 50 mg at 15:00 and 21:00, follow clinical course - Chest x-ray unremarkable on admission - WBC normal, vitals stable, no sepsis or sign of acute infection - UA 1+ bacteria, 6-10 WBC, small leukocyte esterase, urine culture neg, finished 7 day course Ceftin. - black was placed due to retention on 12/13, Black now removed, voiding without difficulty. - continue escitalopram, trazodone -Psych eval pending - PT eval: Recommend 10/05 CARE or LTC # unspecified advanced dementia # urinary retention continue Flomax DNR VTE prophy: lovenox Reason for continued: safe disposition. Quality Stroke Does the patient have a stroke diagnosis?: No VTE Prior VTE?: No VTE Risk Level:: Medical - moderate - high VTE Device Contraindication: Treatment Not Indicated VTE Drug Contraindication: N/A - Med Ordered
[2024-12-27 10:44] VITALS: BMI 20.3
[2024-12-27] MEDS: 0.9 % Sodium Chloride Flush 3 ML SYRINGE IVFLUSH ×2 (10:59→15:11)
--- NOTE | 2024-12-27 11:30 | MHC.SLORD ---
Speech Language Pathology Order Status: Pt sleeping upon BRIDGE IRONWORKER arrival, REPAIRER GENERAL instructed BRIDGE IRONWORKER 'Don't wake him up'. No concerns reported by sitter with pt PO tolerance of NDD2 with thins. BRIDGE IRONWORKER continues to follow.
--- NOTE | 2024-12-27 13:05 | MHC.CM.PN ---
Addendum entered by Nikki Judd 12/27/24 13:35: CM LEFT MESSAGE FOR DAUGHTER/HCP YORDY REGARDING HOSPICE/ CONVERSATION WITH [facility]. AWAITING RETURN CALL. Original Note: CM SPOKE WITH EDUCATIONAL DIAGNOSTICIAN OF [facility] (MANUEL), MORE CLINICAL INFO PROVIDED PER REQUEST. CM CONTINUING TO FOLLOW FOR POSSIBLE ACCEPTANCE.
[2024-12-27 15:32] VITALS: BP 142/64; PULSE 96; RESP 18; TEMP 36.8; O2SAT 97
[2024-12-27] MEDS: Tamsulosin HCL 0.4 MG CAPSULE PO (19:49)
[2024-12-27] MEDS: traZODone HCL 50 MG TABLET PO (19:49)
[2024-12-27] MEDS: Magnesium Oxide 400 MG TABLET 200 MG PO (19:49)
[2024-12-27 19:55] VITALS: BP 119/60; PULSE 92; RESP 18; TEMP 36.2; O2SAT 97
[2024-12-27] MEDS: Enoxaparin Sodium 40 MG/0.4 ML SYRINGE SUBCUT (21:40)
[2024-12-28] MEDS: 0.9 % Sodium Chloride Flush 3 ML SYRINGE IVFLUSH ×3 (00:13→14:03)
[2024-12-28 06:00] VITALS: BP 134/63; PULSE 74; RESP 18; TEMP 36.4; O2SAT 99; BMI 20.1
[2024-12-28 07:09] VITALS: BP 108/58; PULSE 107; RESP 16; TEMP 36.6; O2SAT 92
[2024-12-28] MEDS: QUEtiapine Fumarate 25 MG TABLET PO ×3 (08:02→19:59)
[2024-12-28] MEDS: Escitalopram Oxalate 10 MG TABLET PO (08:02)
[2024-12-28] MEDS: Multivitamin TABLET 1 TAB PO (08:02)
--- NOTE | 2024-12-28 09:54 | MHC.CM.PN ---
CM SPOKE WITH MANUEL FROM [facility] WHO CAN ACCEPT PT FOR HOME HOSPICE, NO AVAILABLE BEDS AT INPATIENT HOSPICE HOME. MANUEL WAS UNABLE TO REACH DAUGHTER YORDY. CM ATTEMPTED TO CONTACT DAUGHTER AT THIS TIME, MESSAGE LEFT WITH REQUEST FOR CALL BACK TO DISCUSS PLAN. CM CONTINUES TO FOLLOW
--- NOTE | 2024-12-28 10:35 | P.PNIM_ITS ---
Subjective Subjective Date of Service: 12/28/24 Interval History: Unable to obtain meaningful history due to advanced dementia, nonsensical speech. Required prn seroquel for agitation Review of Systems Unable to obtain review of system due to underlying dementia Review of Systems: Yes Unobtainable due to mental condition and Unobtainable due to mental status Physical Exam 2 Vital Signs: Vital Signs: Last Vital Signs Temp 97.8 F 12/28/24 07:09 Pulse 107 H 12/28/24 07:09 Resp 16 12/28/24 07:09 BP 108/58 L 12/28/24 07:09 Pulse Ox 92 12/28/24 07:09 O2 Del Method Room Air 12/28/24 07:09 O2 Flow Rate 97 12/23/24 18:00 BMI result Body Mass Index 20.1 Const: Other: General resting comfortably in no acute distress. Neck no JVD. CVS regular rate rhythm, Respiratory lungs clear to auscultation, no respiratory distress Gastrointestinal abdomen soft, non tender, bowel sounds audible Extremities no edema. Neuro moving all 4 extremity, face symmetrical, speech nonsensical Skin no rash. Objective Data Active Medications Acetaminophen (Acetaminophen 325 Mg Tablet) 975 mg PO Q6H PRN PRN Reason: Pain, Mild 1-3,fever,headache Last Admin: 12/24/24 20:02 Dose: 975 mg Documented By: ALVINA Calcium Carbonate (Calcium Carbonate 750 Mg Tab.Chew) 750 mg PO Q4H PRN PRN Reason: Heartburn Enoxaparin Sodium (Enoxaparin Sodium 40 Mg/0.4 Ml Syringe) 40 mg SUBCUT Q24H [facility] Last Admin: 12/27/24 21:40 Dose: 40 mg Documented By: UCHE Escitalopram Oxalate (Escitalopram Oxalate 10 Mg Tablet) 10 mg PO DAILY [facility] Last Admin: 12/28/24 08:02 Dose: 10 mg Documented By: DABElvira Magnesium Hydroxide (Milk Of Magnesia 30 Ml Oral.Susp) 30 ml PO DAILY PRN PRN Reason: Constipation Magnesium Oxide (Magnesium Oxide 400 Mg Tablet) 200 mg PO BEDTIME [facility] Last Admin: 12/27/24 19:49 Dose: 200 mg Documented By: UCHE Melatonin (Melatonin 3 Mg Tablet) 6 mg PO BEDTIME PRN PRN Reason: Insomnia Last Admin: 12/24/24 20:02 Dose: 6 mg Documented By: ALVINA Multivitamins/Vitamin C (Multivitamin Tablet) 1 tab PO DAILY [facility] Last Admin: 12/28/24 08:02 Dose: 1 tab Documented By: AUTUMN Ondansetron HCl (Ondansetron Hcl 4 Mg/2 Ml Vial) 4 mg IVPUSH Q8H PRN PRN Reason: Nausea and Vomiting Polyethylene Glycol (Polyethylene Glycol 3350 17 Gm Powd.Pack) 17 gm PO DAILY PRN PRN Reason: Constipation Quetiapine Fumarate (Quetiapine Fumarate 25 Mg Tablet) 25 mg PO Q6H PRN PRN Reason: Anxiety, agitation Last Admin: 12/28/24 08:02 Dose: 25 mg Documented By: AUTUMN Quetiapine Fumarate (Quetiapine Fumarate 25 Mg Tablet) 25 mg PO BID@1500,2100 [facility] Last Admin: 12/27/24 19:49 Dose: 25 mg Documented By: UCHE Sodium Chloride (0.9 % Sodium Chloride Flush 3 Ml Syringe) 3 ml IVFLUSH QSHIFT [facility] Last Admin: 12/28/24 08:06 Dose: 3 ml Documented By: AUTUMN Tamsulosin HCl (Tamsulosin Hcl 0.4 Mg Capsule) 0.4 mg PO BEDTIME [facility] Last Admin: 12/27/24 19:49 Dose: 0.4 mg Documented By: UCHE Trazodone HCl (Trazodone Hcl 50 Mg Tablet) 50 mg PO BEDTIME [facility] Last Admin: 12/27/24 19:49 Dose: 50 mg Documented By: UCHE Labs 12/20/24 03:40 12/20/24 03:40 Assessment and Plan (1) Delirium: Status: Acute Plan 84-year-old male with a past medical history significant for dementia, recently released from [facility] where he was admitted from 12/02-12/08 for frequent falls. Workup was negative and he was sent to a nursing facility where he was aggressive to the staff and sent back to the emergency room. The patient has been observed in the emergency department since 12/08, now admission recommended due to delirium, awaiting a psych bed. # Delirium secondary to advanced dementia, - ongoing agitation, requiring prn seroquel - Chest x-ray unremarkable on admission - WBC normal, vitals stable, no sepsis or sign of acute infection - UA 1+ bacteria, 6-10 WBC, small leukocyte esterase, urine culture neg, finished 7 day course Ceftin. - black was placed due to retention on 12/13, Black subsequently removed, voiding without difficulty. - continue escitalopram, trazodone -Psych eval pending - PT eval: Recommend / CARE or LTC # unspecified advanced dementia # urinary retention continue Flomax DNR VTE prophy: lovenox Reason for continued: safe disposition. Quality Stroke Does the patient have a stroke diagnosis?: No VTE Prior VTE?: No VTE Risk Level:: Medical - moderate - high VTE Device Contraindication: Treatment Not Indicated VTE Drug Contraindication: N/A - Med Ordered
--- NOTE | 2024-12-28 10:43 | MHC.SLORD ---
Addendum entered and electronically signed by DENISE Oakley 12/28/24 12:47: Patient has been on NDD2/Thin for extended period, tolerating this consistency, though intake poor. Diet is least restrictive for paitient, patient pending hospice placement. Will d/c speech at this time. Original Note: Speech Language Pathology Order Status: Patient checked for toleration of diet at Breakfast this morning. Patient again avoided most of the food offered, ate yogurt with sitter, drank some juice. Sitter reported he had some of the nutritional shake, with sitter planning to save shake for later to try with patient. Patient continues to tolerate diet, though intake very poor. Cable Assembler And Swager will continue to follow.
[2024-12-28 19:03] VITALS: BP 132/63; PULSE 78; RESP 18; TEMP 36.4; O2SAT 95
[2024-12-28] MEDS: traZODone HCL 50 MG TABLET PO (19:59)
[2024-12-28] MEDS: Tamsulosin HCL 0.4 MG CAPSULE PO (19:59)
[2024-12-28] MEDS: Magnesium Oxide 400 MG TABLET 200 MG PO (19:59)
[2024-12-28] MEDS: Enoxaparin Sodium 40 MG/0.4 ML SYRINGE SUBCUT (20:06)
--- NOTE | 2024-12-28 23:26 | PC.NURSE ---
patient refusing care at this time, nursing assessment, vitals, IV flush
[2024-12-29] MEDS: Melatonin 3 MG TABLET 6 MG PO (01:21)
[2024-12-29 02:05] VITALS: BP 91/62; PULSE 88
[2024-12-29 06:00] VITALS: BP 141/66; PULSE 84; RESP 16; TEMP 36.8; O2SAT 92
[2024-12-29] MEDS: 0.9 % Sodium Chloride Flush 3 ML SYRINGE IVFLUSH (09:05)
[2024-12-29] MEDS: Escitalopram Oxalate 10 MG TABLET PO (09:05)
[2024-12-29] MEDS: Multivitamin TABLET 1 TAB PO (09:05)
[2024-12-29 09:55] VITALS: BP 145/108; PULSE 91; RESP 18; TEMP 36.4; O2SAT 97
--- NOTE | 2024-12-29 10:38 | P.PNIM_ITS ---
Subjective Subjective Date of Service: 12/29/24 Interval History: unable to obtain history due to advanced dementia but appears in NAD Review of Systems Review of Systems: Yes Unobtainable due to mental status Physical Exam 2 Vital Signs: Vital Signs: Last Vital Signs Temp 97.6 F 12/29/24 09:55 Pulse 91 12/29/24 09:55 Resp 18 12/29/24 09:55 BP 145/108 H 12/29/24 09:55 Pulse Ox 97 12/29/24 09:55 O2 Del Method Room Air 12/29/24 09:55 O2 Flow Rate 97 12/23/24 18:00 BMI result Body Mass Index 20.0 Gen: in no acute distress HEENT: sclera anicteric, moist mucus membranes Neck: supple Lungs: clear to auscultation bilaterally Heart: regular rate and rhythm, no murmurs Abd: soft, non-tender, non-distended Ext: no edema Skin: warm/well-perfused Neuro: alert, disoriented, moving all extremities, babbling nonsensically Psych: impaired insight Objective Data Active Medications Acetaminophen (Acetaminophen 325 Mg Tablet) 975 mg PO Q6H PRN PRN Reason: Pain, Mild 1-3,fever,headache Last Admin: 12/24/24 20:02 Dose: 975 mg Documented By: ALVINA Calcium Carbonate (Calcium Carbonate 750 Mg Tab.Chew) 750 mg PO Q4H PRN PRN Reason: Heartburn Enoxaparin Sodium (Enoxaparin Sodium 40 Mg/0.4 Ml Syringe) 40 mg SUBCUT Q24H [facility] Last Admin: 12/28/24 20:06 Dose: 40 mg Documented By: GOVIND Escitalopram Oxalate (Escitalopram Oxalate 10 Mg Tablet) 10 mg PO DAILY [facility] Last Admin: 12/29/24 09:05 Dose: 10 mg Documented By: MAYITO Magnesium Hydroxide (Milk Of Magnesia 30 Ml Oral.Susp) 30 ml PO DAILY PRN PRN Reason: Constipation Magnesium Oxide (Magnesium Oxide 400 Mg Tablet) 200 mg PO BEDTIME [facility] Last Admin: 12/28/24 19:59 Dose: 200 mg Documented By: GOVIND Melatonin (Melatonin 3 Mg Tablet) 6 mg PO BEDTIME PRN PRN Reason: Insomnia Last Admin: 12/29/24 01:21 Dose: 6 mg Documented By: JELANI Multivitamins/Vitamin C (Multivitamin Tablet) 1 tab PO DAILY [facility] Last Admin: 12/29/24 09:05 Dose: 1 tab Documented By: MAYITO Ondansetron HCl (Ondansetron Hcl 4 Mg/2 Ml Vial) 4 mg IVPUSH Q8H PRN PRN Reason: Nausea and Vomiting Polyethylene Glycol (Polyethylene Glycol 3350 17 Gm Powd.Pack) 17 gm PO DAILY PRN PRN Reason: Constipation Quetiapine Fumarate (Quetiapine Fumarate 25 Mg Tablet) 25 mg PO Q6H PRN PRN Reason: Anxiety, agitation Last Admin: 12/28/24 08:02 Dose: 25 mg Documented By: AUTUMN Quetiapine Fumarate (Quetiapine Fumarate 25 Mg Tablet) 25 mg PO BID@1500,2100 [facility] Last Admin: 12/28/24 19:59 Dose: 25 mg Documented By: GOVIND Sodium Chloride (0.9 % Sodium Chloride Flush 3 Ml Syringe) 3 ml IVFLUSH QSHIFT [facility] Last Admin: 12/29/24 09:05 Dose: 3 ml Documented By: MAYITO Tamsulosin HCl (Tamsulosin Hcl 0.4 Mg Capsule) 0.4 mg PO BEDTIME [facility] Last Admin: 12/28/24 19:59 Dose: 0.4 mg Documented By: GOVIND Trazodone HCl (Trazodone Hcl 50 Mg Tablet) 50 mg PO BEDTIME [facility] Last Admin: 12/28/24 19:59 Dose: 50 mg Documented By: GOVIND Labs 12/20/24 03:40 12/20/24 03:40 Assessment and Plan (1) Delirium: Status: Acute Plan [id number] for 84yo M with dementia recently admitted to [facility] 12/02-12/08 for frequent falls; sent to SNF where he became aggressive to the staff and was sent to the [facility] ED. Was on observation status in the ED since 12/08; then admitted / to facilitate placement delirium due to advanced dementia - continue escitalopram + trazodone + standing/prn quetiapine - CARE Team recommends 10/05 or long-term care UTI - completed 7-day course of cefuroxime urinary retention - Sweet placed 12/13, subsequently removed, voiding without difficulty - continue tamsulosin VTE ppx - enoxaparin dispo - family considering hospice home; CM working with them In my clinical judgment, the patient requires continued inpatient hospitalization for the following reasons: placement Total time managing care of this patient today: 30 minutes. Quality Stroke Does the patient have a stroke diagnosis?: No VTE Prior VTE?: No VTE Risk Level:: Medical - moderate - high VTE Device Contraindication: Treatment Not Indicated VTE Drug Contraindication: N/A - Med Ordered
[2024-12-29] MEDS: Acetaminophen 325 MG TABLET 975 MG PO (11:26)
[2024-12-29] MEDS: QUEtiapine Fumarate 25 MG TABLET PO ×3 (12:30→21:38)
--- NOTE | 2024-12-29 13:39 | MHC.CM.PN ---
PER LIAISON [facility], SHE HAS DONE A HOSPICE INFORMATIONAL WITH DAUGHTER/HCP YORDY WHO IS AGREEABLE TO HOSPICE BUT PT WILL NEED SX MANAGEMENT BEFORE RETURNING HOME. [facility] WILL DO A GIP EVAL FOR SX MANAGEMENT, CM WILL FOLLOW FOR THE PLAN.
[2024-12-29 15:54] VITALS: BP 158/66; PULSE 88; RESP 16; TEMP 36.4; O2SAT 95
[2024-12-29] MEDS: Magnesium Oxide 400 MG TABLET 200 MG PO (21:38)
[2024-12-29] MEDS: Tamsulosin HCL 0.4 MG CAPSULE PO (21:39)
[2024-12-29] MEDS: Enoxaparin Sodium 40 MG/0.4 ML SYRINGE SUBCUT (21:39)
[2024-12-29] MEDS: traZODone HCL 50 MG TABLET PO (21:39)
[2024-12-30 06:00] VITALS: BP 148/62; PULSE 89; RESP 18; TEMP 36.2; O2SAT 94
[2024-12-30] MEDS: Multivitamin TABLET 1 TAB PO (09:04)
[2024-12-30] MEDS: Escitalopram Oxalate 10 MG TABLET PO (09:04)
--- NOTE | 2024-12-30 11:16 | P.PNIM_ITS ---
Subjective Subjective Date of Service: 12/30/24 Interval History: Patient not sleeping well, keeps trying to get out of bed, at times aggressive, tolerating supplements, yogurts and ice cream. Persistent nonsensical speech Review of Systems Unable to obtain due to dementia Physical Exam 2 Vital Signs: Vital Signs: Last Vital Signs Temp 97.2 F 12/30/24 06:00 Pulse 89 12/30/24 06:00 Resp 18 12/30/24 06:00 BP 148/62 H 12/30/24 06:00 Pulse Ox 94 12/30/24 06:00 O2 Del Method Room Air 12/30/24 06:00 O2 Flow Rate 97 12/23/24 18:00 BMI result Body Mass Index 20.0 Const: Other: General resting comfortably in no acute distress. Neck no JVD. CVS regular rate rhythm, Respiratory lungs clear to auscultation, no respiratory distress Gastrointestinal abdomen soft, non tender, bowel sounds audible Extremities no edema. Neuro moving all 4 extremity, face symmetrical, speech nonsensical Skin no rash Objective Data Active Medications Acetaminophen (Acetaminophen 325 Mg Tablet) 975 mg PO Q6H PRN PRN Reason: Pain, Mild 1-3,fever,headache Last Admin: 12/29/24 11:26 Dose: 975 mg Documented By: MAYITO Calcium Carbonate (Calcium Carbonate 750 Mg Tab.Chew) 750 mg PO Q4H PRN PRN Reason: Heartburn Enoxaparin Sodium (Enoxaparin Sodium 40 Mg/0.4 Ml Syringe) 40 mg SUBCUT Q24H [facility] Last Admin: 12/29/24 21:39 Dose: 40 mg Documented By: FLORA Escitalopram Oxalate (Escitalopram Oxalate 10 Mg Tablet) 10 mg PO DAILY [facility] Last Admin: 12/30/24 09:04 Dose: 10 mg Documented By: ENMANUEL Magnesium Hydroxide (Milk Of Magnesia 30 Ml Oral.Susp) 30 ml PO DAILY PRN PRN Reason: Constipation Magnesium Oxide (Magnesium Oxide 400 Mg Tablet) 200 mg PO BEDTIME [facility] Last Admin: 12/29/24 21:38 Dose: 200 mg Documented By: FLORA Melatonin (Melatonin 3 Mg Tablet) 6 mg PO BEDTIME PRN PRN Reason: Insomnia Last Admin: 12/29/24 01:21 Dose: 6 mg Documented By: JELANI Multivitamins/Vitamin C (Multivitamin Tablet) 1 tab PO DAILY [facility] Last Admin: 12/30/24 09:04 Dose: 1 tab Documented By: ENMANUEL Ondansetron HCl (Ondansetron Hcl 4 Mg/2 Ml Vial) 4 mg IVPUSH Q8H PRN PRN Reason: Nausea and Vomiting Polyethylene Glycol (Polyethylene Glycol 3350 17 Gm Powd.Pack) 17 gm PO DAILY PRN PRN Reason: Constipation Quetiapine Fumarate (Quetiapine Fumarate 25 Mg Tablet) 25 mg PO Q6H PRN PRN Reason: Anxiety, agitation Last Admin: 12/29/24 12:30 Dose: 25 mg Documented By: MAYITO Quetiapine Fumarate (Quetiapine Fumarate 25 Mg Tablet) 25 mg PO BID@1500,2100 [facility] Last Admin: 12/29/24 21:38 Dose: 25 mg Documented By: FLORA Sodium Chloride (0.9 % Sodium Chloride Flush 3 Ml Syringe) 3 ml IVFLUSH QSHIFT [facility] Last Admin: 12/30/24 09:07 Dose: Not Given Documented By: ENMANUEL Non-Admin Reason: No Access Tamsulosin HCl (Tamsulosin Hcl 0.4 Mg Capsule) 0.4 mg PO BEDTIME [facility] Last Admin: 12/29/24 21:39 Dose: 0.4 mg Documented By: FLORA Trazodone HCl (Trazodone Hcl 50 Mg Tablet) 50 mg PO BEDTIME [facility] Last Admin: 12/29/24 21:39 Dose: 50 mg Documented By: FLORA Labs 12/20/24 03:40 12/20/24 03:40 Assessment and Plan (1) Delirium: Status: Acute (2) Major neurocognitive disorder: Status: Acute (3) UTI (urinary tract infection): Status: Acute Plan 84-year-old male with a past medical history significant for dementia, recently released from [facility] where he was admitted from 12/02-12/08 for frequent falls. Workup was negative and he was sent to a nursing facility where he was aggressive to the staff and sent back to the emergency room. The patient has been observed in the emergency department since 12/08, now admission recommended due to delirium, awaiting a psych bed. Delirium due to advanced dementia - continue escitalopram + trazodone + increase dose of Seroquel to 50 mg at 15:00 and 21:00 due to restlessness and aggressive behavior/continue prn quetiapine - CARE Team recommends 10/05 or long-term care UTI - completed 7-day course of cefuroxime urinary retention - Sweet placed 12/13, subsequently removed, voiding without difficulty - continue tamsulosin VTE ppx - enoxaparin dispo - family considering hospice home; CM working with them In my clinical judgment, the patient requires continued inpatient hospitalization for the following reasons: placement Quality Stroke Does the patient have a stroke diagnosis?: No VTE Prior VTE?: No VTE Risk Level:: Medical - moderate - high VTE Device Contraindication: Treatment Not Indicated VTE Drug Contraindication: N/A - Med Ordered
[2024-12-30] MEDS: QUEtiapine Fumarate 25 MG TABLET PO ×2 (12:58→15:54)
--- NOTE | 2024-12-30 14:43 | MHC.CM.PN ---
[facility] RN met with daughter at bedside. Recommendations from RN: specific med changes and admit GIP. This CM reviewed GIP recommendation w/ MD who is not in agreement w/ plan and declines to change admission orders at this time. CM updated hospice agency and daughter. Daughter verbalized frustration. CM provided emotional support. DP: Goal is dc to either [facility] or [facility] on hospice, if no beds available can dc home w/ [facility] and family support. Unable to move forward w/ either plan until patient's behaviors are better managed. Daughter requesting [facility]uc-psych admission. CM has been told on multiple occasions that patient is no longer being considered for [facility]-psych. Daughter updated and will address concerns w/ hospitalist.
[2024-12-30 15:35] VITALS: RESP 18
[2024-12-30] MEDS: LORazepam 0.5 MG TABLET PO (15:56)
[2024-12-30] MEDS: traZODone HCL 25 MG HALFTAB 75 MG PO (18:18)
[2024-12-30] MEDS: Tamsulosin HCL 0.4 MG CAPSULE PO (22:11)
[2024-12-30] MEDS: Enoxaparin Sodium 40 MG/0.4 ML SYRINGE SUBCUT (22:11)
[2024-12-30] MEDS: Magnesium Oxide 400 MG TABLET 200 MG PO (22:11)
[2024-12-31 06:00] VITALS: BP 133/63; PULSE 94; RESP 17; TEMP 36.1; O2SAT 97
[2024-12-31] MEDS: Escitalopram Oxalate 10 MG TABLET PO (08:39)
[2024-12-31] MEDS: traZODone HCL 25 MG HALFTAB PO (08:39)
[2024-12-31] MEDS: Multivitamin TABLET 1 TAB PO (08:39)
--- NOTE | 2024-12-31 10:49 | PC.NURSE ---
Pt ambulated to hallway with 2 person assist - does not follow directions or understand how to use walker. Often argumentative and confused so will not ambulate.
[2024-12-31] MEDS: QUEtiapine Fumarate 50 MG TABLET PO (12:23)
--- NOTE | 2024-12-31 13:26 | P.PNIM_ITS ---
Subjective Subjective Date of Service: 01/16/25 Interval History: As per nurse slept well last night, patient remains confused continue with nonsensical speech unable to provide meaningful history. Requiring one-to-one feed Review of Systems Unable to obtain due to mental status Physical Exam 2 Vital Signs: Vital Signs: Last Vital Signs Temp 96.9 F 12/31/24 06:00 Pulse 94 12/31/24 06:00 Resp 17 12/31/24 06:00 BP 133/63 12/31/24 06:00 Pulse Ox 97 12/31/24 06:00 O2 Del Method Room Air 12/31/24 06:00 O2 Flow Rate 97 12/23/24 18:00 BMI result Body Mass Index 20.0 Const: Other: General awake,frail,in no acute distress. Neck no JVD. CVS regular rate rhythm, Respiratory lungs clear to auscultation, no respiratory distress Gastrointestinal abdomen soft, non tender, bowel sounds audible Extremities no edema. Neuro moving all 4 extremity, face symmetrical, speech nonsensical Skin no rash Objective Data Active Medications Acetaminophen (Acetaminophen 325 Mg Tablet) 975 mg PO Q6H PRN PRN Reason: Pain, Mild 1-3,fever,headache Last Admin: 12/29/24 11:26 Dose: 975 mg Documented By: MAYITO Calcium Carbonate (Calcium Carbonate 750 Mg Tab.Chew) 750 mg PO Q4H PRN PRN Reason: Heartburn Enoxaparin Sodium (Enoxaparin Sodium 40 Mg/0.4 Ml Syringe) 40 mg SUBCUT Q24H [facility] Last Admin: 12/30/24 22:11 Dose: 40 mg Documented By: FLORA Escitalopram Oxalate (Escitalopram Oxalate 10 Mg Tablet) 10 mg PO DAILY [facility] Last Admin: 12/31/24 08:39 Dose: 10 mg Documented By: ENMANUEL Lorazepam (Lorazepam 0.5 Mg Tablet) 0.5 mg PO Q4H PRN PRN Reason: anxiety/restlessness Last Admin: 12/30/24 15:56 Dose: 0.5 mg Documented By: ENMANUEL Magnesium Hydroxide (Milk Of Magnesia 30 Ml Oral.Susp) 30 ml PO DAILY PRN PRN Reason: Constipation Magnesium Oxide (Magnesium Oxide 400 Mg Tablet) 200 mg PO BEDTIME [facility] Last Admin: 12/30/24 22:11 Dose: 200 mg Documented By: FLORA Melatonin (Melatonin 3 Mg Tablet) 6 mg PO BEDTIME PRN PRN Reason: Insomnia Last Admin: 12/29/24 01:21 Dose: 6 mg Documented By: JELANI Multivitamins/Vitamin C (Multivitamin Tablet) 1 tab PO DAILY [facility] Last Admin: 12/31/24 08:39 Dose: 1 tab Documented By: ENMANUEL Ondansetron HCl (Ondansetron Hcl 4 Mg/2 Ml Vial) 4 mg IVPUSH Q8H PRN PRN Reason: Nausea and Vomiting Polyethylene Glycol (Polyethylene Glycol 3350 17 Gm Powd.Pack) 17 gm PO DAILY PRN PRN Reason: Constipation Quetiapine Fumarate (Quetiapine Fumarate 50 Mg Tablet) 50 mg PO DAILY [facility] Last Admin: 12/31/24 12:23 Dose: 50 mg Documented By: ENMANUEL Sodium Chloride (0.9 % Sodium Chloride Flush 3 Ml Syringe) 3 ml IVFLUSH QSHIFT [facility] Last Admin: 12/31/24 08:58 Dose: Not Given Documented By: ENMANUEL Non-Admin Reason: No Access Tamsulosin HCl (Tamsulosin Hcl 0.4 Mg Capsule) 0.4 mg PO BEDTIME [facility] Last Admin: 12/30/24 22:11 Dose: 0.4 mg Documented By: FLORA Trazodone HCl (Trazodone Hcl 25 Mg Halftab) 75 mg PO 1900 [facility] Last Admin: 12/30/24 18:18 Dose: 75 mg Documented By: ENMANUEL Trazodone HCl (Trazodone Hcl 25 Mg Halftab) 25 mg PO DAILY [facility] Last Admin: 12/31/24 08:58 Dose: Not Given Documented By: ENMANUEL Non-Admin Reason: Previously Administered Labs 12/20/24 03:40 12/20/24 03:40 Assessment and Plan (1) Dementia with behavioral disturbance: Status: Acute (2) Major neurocognitive disorder: Status: Acute Plan 84-year-old male with a past medical history significant for dementia, recently released from [facility] where he was admitted from 12/02-12/08 for frequent falls. Workup was negative and he was sent to a nursing facility where he was aggressive to the staff and sent back to the emergency room. The patient has been observed in the emergency department since 12/08, now admission recommended due to delirium, awaiting a psych bed. Delirium due to advanced dementia - was being followed by psych and was on Seroquel 25 mg b.i.d., increased dose to Seroquel to 50 mg at 15:00 and 21:00 due to restlessness and aggressive behavior on 12/30 and was continued on Lexapro 10 mg Spoke with daughter Laurie on 12/30 mg she requested to wean patient off of Seroquel due to history of prior side effects and requested for Zyprexa On request of daughter Laurie and per d/w hospice medications were changed on 12/30 to Trazodone 25 mg at a.m. and 75 mg at p.m. Seroquel 50 mg at 13:00 Ativan 0.5 mg q.4 hours as needed Will follow clinical course on above medications. Recommend staff to ambulate patient with assistance t.i.d. and out of bed to chair daily. Patient tolerating diet and moving bowels. UTI - completed 7-day course of cefuroxime urinary retention - Sweet placed 12/13, subsequently removed, voiding without difficulty - continue tamsulosin VTE ppx - enoxaparin dispo - family considering hospice home or at [facility] or [facility], no beds available at this time In my clinical judgment, the patient requires continued inpatient hospitalization for the following reasons: placement/behavior managment. Quality Stroke Does the patient have a stroke diagnosis?: No VTE Prior VTE?: No VTE Risk Level:: Medical - moderate - high VTE Device Contraindication: Treatment Not Indicated VTE Drug Contraindication: N/A - Med Ordered
[2024-12-31] MEDS: LORazepam 0.5 MG TABLET PO (14:57)
[2024-12-31 15:52] VITALS: BP 104/53; PULSE 103; RESP 18; TEMP 36.4; O2SAT 96
[2024-12-31 18:00] VITALS: BP 117/59; PULSE 103; RESP 18; TEMP 36.8; O2SAT 98
[2024-12-31] MEDS: Tamsulosin HCL 0.4 MG CAPSULE PO (19:13)
[2024-12-31] MEDS: Magnesium Oxide 400 MG TABLET 200 MG PO (19:13)
[2024-12-31] MEDS: traZODone HCL 25 MG HALFTAB 75 MG PO (19:13)
[2024-12-31] MEDS: Enoxaparin Sodium 40 MG/0.4 ML SYRINGE SUBCUT (22:14)
[2025-01-01 06:00] VITALS: BP 145/61; PULSE 87; RESP 16; TEMP 36.5; O2SAT 98
[2025-01-01 07:32] VITALS: BP 112/58; PULSE 75; RESP 12; TEMP 36.7; O2SAT 97
[2025-01-01] MEDS: traZODone HCL 25 MG HALFTAB PO (08:46)
[2025-01-01] MEDS: Escitalopram Oxalate 10 MG TABLET PO (08:46)
[2025-01-01] MEDS: QUEtiapine Fumarate 50 MG TABLET PO (08:47)
[2025-01-01] MEDS: Multivitamin TABLET 1 TAB PO (08:47)
--- NOTE | 2025-01-01 11:53 | HO.PM.IMPN ---
Subjective Subjective Date of Service: 01/01/25 Interval History: 1:1 feed, nonsensical speech Review of Systems Review of Systems: Yes Unobtainable due to mental status Physical Exam Vital Signs: Vital Signs: Last Vital Signs Temp 98.1 F 01/01/25 07:32 Pulse 75 01/01/25 07:32 Resp 12 01/01/25 07:32 BP 112/58 L 01/01/25 07:32 Pulse Ox 97 01/01/25 07:32 O2 Del Method Room Air 01/01/25 07:32 O2 Flow Rate 97 12/23/24 18:00 BMI result Body Mass Index 20.0 Gen: in no acute distress HEENT: sclera anicteric, moist mucus membranes Neck: supple Lungs: clear to auscultation bilaterally Heart: regular rate and rhythm, no murmurs Abd: soft, non-tender, non-distended Ext: no edema Skin: warm/well-perfused Neuro: alert, disoriented, moving all extremities, babbling nonsensically Psych: impaired insight Objective Data Active Medications Acetaminophen (Acetaminophen 325 Mg Tablet) 975 mg PO Q6H PRN PRN Reason: Pain, Mild 1-3,fever,headache Last Admin: 12/29/24 11:26 Dose: 975 mg Documented By: MAYITO Calcium Carbonate (Calcium Carbonate 750 Mg Tab.Chew) 750 mg PO Q4H PRN PRN Reason: Heartburn Enoxaparin Sodium (Enoxaparin Sodium 40 Mg/0.4 Ml Syringe) 40 mg SUBCUT Q24H [facility] Last Admin: 12/31/24 22:14 Dose: 40 mg Documented By: FLORA Escitalopram Oxalate (Escitalopram Oxalate 10 Mg Tablet) 10 mg PO DAILY [facility] Last Admin: 01/01/25 08:46 Dose: 10 mg Documented By: ALANA Lorazepam (Lorazepam 0.5 Mg Tablet) 0.5 mg PO Q4H PRN PRN Reason: anxiety/restlessness Last Admin: 12/31/24 14:57 Dose: 0.5 mg Documented By: ENMANUEL Magnesium Hydroxide (Milk Of Magnesia 30 Ml Oral.Susp) 30 ml PO DAILY PRN PRN Reason: Constipation Magnesium Oxide (Magnesium Oxide 400 Mg Tablet) 200 mg PO BEDTIME [facility] Last Admin: 12/31/24 19:13 Dose: 200 mg Documented By: FLORA Melatonin (Melatonin 3 Mg Tablet) 6 mg PO BEDTIME PRN PRN Reason: Insomnia Last Admin: 12/29/24 01:21 Dose: 6 mg Documented By: JELANI Multivitamins/Vitamin C (Multivitamin Tablet) 1 tab PO DAILY [facility] Last Admin: 01/01/25 08:47 Dose: 1 tab Documented By: ALANA Ondansetron HCl (Ondansetron Hcl 4 Mg/2 Ml Vial) 4 mg IVPUSH Q8H PRN PRN Reason: Nausea and Vomiting Polyethylene Glycol (Polyethylene Glycol 3350 17 Gm Powd.Pack) 17 gm PO DAILY PRN PRN Reason: Constipation Quetiapine Fumarate (Quetiapine Fumarate 50 Mg Tablet) 50 mg PO DAILY [facility] Last Admin: 01/01/25 08:47 Dose: 50 mg Documented By: ALANA Sodium Chloride (0.9 % Sodium Chloride Flush 3 Ml Syringe) 3 ml IVFLUSH QSHIFT [facility] Last Admin: 01/01/25 08:46 Dose: Not Given Documented By: ALANA Non-Admin Reason: No Access Tamsulosin HCl (Tamsulosin Hcl 0.4 Mg Capsule) 0.4 mg PO BEDTIME [facility] Last Admin: 12/31/24 19:13 Dose: 0.4 mg Documented By: FLORA Trazodone HCl (Trazodone Hcl 25 Mg Halftab) 75 mg PO 1900 [facility] Last Admin: 12/31/24 19:13 Dose: 75 mg Documented By: FLORA Trazodone HCl (Trazodone Hcl 25 Mg Halftab) 25 mg PO DAILY [facility] Last Admin: 01/01/25 08:46 Dose: 25 mg Documented By: ALANA Labs 12/20/24 03:40 12/20/24 03:40 Assessment and Plan (1) Delirium: Status: Acute Plan [id number] for 84yo M with dementia recently admitted to [facility] 12/02-12/08 for frequent falls; sent to SNF where he became aggressive to the staff and was sent to the [facility]. Was on observation status in the ED since 12/08; then admitted 3/ to facilitate placement delirium due to advanced dementia - continue escitalopram + trazodone + standing/prn quetiapine; dosages of trazodone + quetiapine increased yesterday - per CARE Team should be on inpatient geriatric psychiatry UTI - completed 7-day course of cefuroxime urinary retention - Sweet placed 12/13, subsequently removed, voiding without difficulty - continue tamsulosin VTE ppx - enoxaparin dispo - not appropriate for [facility] Hospice; will proceed with geriatric psychiatry placement as recommended by CARE Team and Psychiatry In my clinical judgment, the patient requires continued inpatient hospitalization for the following reasons: placement, behavior management Quality Stroke Does the patient have a stroke diagnosis?: No VTE Prior VTE?: No VTE Risk Level:: Medical - moderate - high VTE Device Contraindication: Treatment Not Indicated VTE Drug Contraindication: N/A - Med Ordered
--- NOTE | 2025-01-01 12:24 | MHC.CARE ---
CARE Team calls pt's Healthcare proxy (Laurie) togather information as to what she is looking for in the way of care for pt. Notes indicate that she has interest in a Geriatric Pysch admission.
[2025-01-01] MEDS: LORazepam 0.5 MG TABLET PO (12:36)
[2025-01-01] MEDS: Acetaminophen 325 MG TABLET 975 MG PO (12:37)
--- NOTE | 2025-01-01 15:43 | MHC.CM.PN ---
VIVIAN SPOKE WITH JERED FROM [facility] THIS AM, STILL NO AVAILABILITY FOR I/P BUT WILLING TO ACCEPT FOR HOME HOSPICE/ [facility]ICE [facility] FOLLOWING WELL. VIVIAN SPOKE WITH DAUGHTER WHO STATES SHE CAN'T TAKE PT HOME IF HE IS WALKING AROUND AND AGITATED. CM TRIED TO ASSIST WITH PLAN AND PROVIDED NON SKILLED HOME SERVICE NUMBER FOR MORE HELP IN THE HOME. DAUGHTER VERY DISTRESSED AND WOULD LIKE TO TALK TO SOMEONE REGARDING HER CONCERNS ABOUT HER FATHER'S COURSE OF CARE. VIVIAN SPOKE WITH CM DIRECTOR AND PLAN IS FOR A TEAM MEETING WITH DAUGHTER TO DISCUSS ISSUES AND PLAN. VIVIAN CONTINUES TO FOLLOW.
--- NOTE | 2025-01-01 16:55 | P.CNPS_ITS ---
History of Present Illness Date of Service: 01/02/2024 Chief Complaint: delirium Discussed with referring provider: Yes Sources of Information: patient interviewed, chart reviewed and crisis/core team assessment reviewed HPI Narrative: Pt has had intermittent episodes of agitation. Today, he required ativan as he was combative. Over the weekend, he was started on trazodone 25mg po daily and at 5pm 50mg po qhs. Seroquel was changed to once a day- 50mg po at 2pm. When this typewriter operator automatic attempted to see him, he was asleep. Past Psychiatric History: Inpt: none OP: none PCP prescribing psychotropic medications including olazanpine, seroquel, PMFSH Medical History Major neurocognitive disorder Delirium Diagnostics Vital Signs (24Hr): Vital Signs - 24 hr 12/31/24 18:00 01/01/25 06:00 01/01/25 07:32 Temperature 98.2 F 97.7 F 98.1 F Pulse Rate 103 H 87 75 Respiratory Rate 18 16 12 Blood Pressure 117/59 L 145/61 H 112/58 L Pulse Oximetry 98 98 97 Oxygen Delivery Method Room Air Room Air Room Air BMI result Body Mass Index 20.0 Labs 12/20/24 03:40 12/20/24 03:40 Imaging Radiology Impressions: ITS Impressions Chest X-Ray 12/11/24 06:56 IMPRESSION: Chronic interstitial lung disease with questionable mild interstitial lung edema versus small airway inflammatory disease. Electronically signed by: Wilver Hernandez MD 12/11/2024 08:25 AM EST RP Chest X-Ray 12/15/24 09:43 IMPRESSION: No acute cardiopulmonary abnormality. Electronically signed by: Rodri Lawson MD 12/15/2024 10:04 AM EST RP Mental Status Exam Mental Status Exam Narrative: pt is asleep. Medications Medications Current Medications Acetaminophen (Acetaminophen 325 Mg Tablet) 975 mg PO Q6H PRN PRN Reason: Pain, Mild 1-3,fever,headache Last Admin: 01/01/25 12:37 Dose: 975 mg Calcium Carbonate (Calcium Carbonate 750 Mg Tab.Chew) 750 mg PO Q4H PRN PRN Reason: Heartburn Enoxaparin Sodium (Enoxaparin Sodium 40 Mg/0.4 Ml Syringe) 40 mg SUBCUT Q24H COUNT INCLUDES THE [facility] Last Admin: 12/31/24 22:14 Dose: 40 mg Escitalopram Oxalate (Escitalopram Oxalate 10 Mg Tablet) 10 mg PO DAILY COUNT INCLUDES THE [facility] Last Admin: 01/01/25 08:46 Dose: 10 mg Lorazepam (Lorazepam 0.5 Mg Tablet) 0.5 mg PO Q4H PRN PRN Reason: anxiety/restlessness Last Admin: 01/01/25 12:36 Dose: 0.5 mg Magnesium Hydroxide (Milk Of Magnesia 30 Ml Oral.Susp) 30 ml PO DAILY PRN PRN Reason: Constipation Magnesium Oxide (Magnesium Oxide 400 Mg Tablet) 200 mg PO BEDTIME COUNT INCLUDES THE [facility] Last Admin: 12/31/24 19:13 Dose: 200 mg Melatonin (Melatonin 3 Mg Tablet) 6 mg PO BEDTIME PRN PRN Reason: Insomnia Last Admin: 12/29/24 01:21 Dose: 6 mg Multivitamins/Vitamin C (Multivitamin Tablet) 1 tab PO DAILY COUNT INCLUDES THE [facility] Last Admin: 01/01/25 08:47 Dose: 1 tab Ondansetron HCl (Ondansetron Hcl 4 Mg/2 Ml Vial) 4 mg IVPUSH Q8H PRN PRN Reason: Nausea and Vomiting Polyethylene Glycol (Polyethylene Glycol 3350 17 Gm Powd.Pack) 17 gm PO DAILY PRN PRN Reason: Constipation Quetiapine Fumarate (Quetiapine Fumarate 50 Mg Tablet) 50 mg PO DAILY COUNT INCLUDES THE [facility] Last Admin: 01/01/25 08:47 Dose: 50 mg Sodium Chloride (0.9 % Sodium Chloride Flush 3 Ml Syringe) 3 ml IVFLUSH QSHIFT COUNT INCLUDES THE [facility] Last Admin: 01/01/25 16:33 Dose: Not Given Tamsulosin HCl (Tamsulosin Hcl 0.4 Mg Capsule) 0.4 mg PO BEDTIME COUNT INCLUDES THE [facility] Last Admin: 12/31/24 19:13 Dose: 0.4 mg Trazodone HCl (Trazodone Hcl 25 Mg Halftab) 75 mg PO 1900 COUNT INCLUDES THE [facility] Last Admin: 12/31/24 19:13 Dose: 75 mg Trazodone HCl (Trazodone Hcl 25 Mg Halftab) 25 mg PO DAILY COUNT INCLUDES THE [facility] Last Admin: 01/01/25 08:46 Dose: 25 mg Allergies Allergies Allergy/AdvReac Type Severity Reaction Status Date / Time No Known Allergies Allergy Verified 12/08/24 17:54 Assessment & Plan Assessment & Plan (1) Major neurocognitive disorder: Status: Acute Code(s): F03.90 - Unspecified dementia, unspecified severity, without behavioral disturbance, psychotic disturbance, mood disturbance, and anxiety (2) Delirium: Status: Acute Code(s): R41.0 - Disorientation, unspecified Plan Mr. Burnett is an 84 year-old male with hx of dementia, probably AD. He was brought via EMS same day he went to STR due to combative behaviors. He presents with s/s of delirium superimposed on dementia. He is currently now able to engage in STR due to increased confusions and poor attention r/t delirium. After discussing risks, benefits and alternative treatment options with daughter, who is HCP, agreed to d/c olanzapine as she reports he was overly sedated and dizzy,she also reports side effects with exelon and namenda and would like him to be off those two medications as well. Will scheduled seroquel 25mg po TID, add prn seroquel 25mg po q6h prn agitation. PLAN 1. continue management of delirium care- avoid oversedation, encourage proper hydration as he is not able to verbalize need for it and does need more assistance eating. 12/14/24--> pt continues to present as very confused, poor attention all symptoms of delirium, which does not seem to be resolving yet. I will increase seroquel to 50mg po TID, however, keeping in mind that delirium can last several weeks, avoid oversedation at night when he tries to ambulate. Monitor proper hydration as he can quickly dehydrate. CMP ordered today: BUN 21, Cr 0.79, no electrolyte abnormalities. Assist with mobility as possible. 12/15/24 continue seroquel 50mg po TID- HOLD if over sedation noted. AVOID OVERMEDICATION at night when he is attempting to ambulate. Judiciously maintain hydration and attempt to walk patient. If need IM medication for combative/aggressive behaviors (NOT FOR PATIENT ATTEMPTING TO GET OUT OF BED), use low dose of olanzapine 5mg q6h. NOTE that oversedation will be noted the following day, prolonging delirium as it increases risk of dehydration, normalization of circadian cycle. 3/3 consider duc psych for stabilization, containment and safety. referred to care team for admission to [facility]. 12/19 UA shows UTI, pending culture. Pt was going to [facility] no bed open. Discussed with case management considering admission to medicine treat delirium and UTI, psych to follow pt while on medicine. 12/20 medically admitted for delirium, pending urine culture. will decrease seroquel to 50mg po BID at 1500 and 2100. MAINTAIN ADECUATE HYDRATION, PATIENT NOT ABLE TO ASK FOR IT. ATTEMPT TO GET HIM OUT OF BED, EITHER WALK WITH ASSISTANCE SHORT DISTANCE OR CHANGE POSITION FROM LYING IN BED TO SITTING IN RECLINER. AVOID OVER SEDATION, DO NOT MEDICATE IF PT ATTEMPTING TO GET OUT OF BED, ATTEMPT TO REDIRECT BUT ALSO BE MINDFUL THAT PATIENT HAS SPENT A LOT OF TIME LYING IN BED. 12/26 improvement in attention, less s/s of delirium but underlying major neurocognitive disorder is advanced. severe expressive/ receptive aphasia, do wonder about some degree of frontal atrophy, otherwise seems dementia of AD type. 01/01 will discuss with daughter admission to [facility].Will schedule seroquel 25mg po TID for now. Total time managing care of this patient today ____ minutes.
[2025-01-01 19:24] VITALS: BP 140/74; PULSE 94; RESP 18; O2SAT 97
[2025-01-01] MEDS: Enoxaparin Sodium 40 MG/0.4 ML SYRINGE SUBCUT (21:43)
[2025-01-01] MEDS: QUEtiapine Fumarate 25 MG TABLET PO (21:43)
[2025-01-01] MEDS: Tamsulosin HCL 0.4 MG CAPSULE PO (21:43)
[2025-01-01] MEDS: Magnesium Oxide 400 MG TABLET 200 MG PO (21:43)
[2025-01-02 05:31] VITALS: BP 94/50; PULSE 82; RESP 17; TEMP 36.2; O2SAT 96
[2025-01-02 06:00] VITALS: BMI 20.1
[2025-01-02] MEDS: Escitalopram Oxalate 10 MG TABLET PO (08:43)
[2025-01-02] MEDS: Multivitamin TABLET 1 TAB PO (08:43)
[2025-01-02] MEDS: QUEtiapine Fumarate 25 MG TABLET PO ×2 (08:43→14:38)
[2025-01-02 08:53] VITALS: BP 140/81; PULSE 88; RESP 14; TEMP 36.6; O2SAT 99
--- NOTE | 2025-01-02 11:49 | P.PNIM_ITS ---
Subjective Subjective Date of Service: 01/02/25 Interval History: was agitated yesterday; sitter placed now calm Review of Systems Review of Systems: Yes Unobtainable due to mental status Physical Exam 2 Vital Signs: Vital Signs: Last Vital Signs Temp 97.9 F 01/02/25 08:53 Pulse 88 01/02/25 08:53 Resp 14 01/02/25 08:53 BP 140/81 H 01/02/25 08:53 Pulse Ox 99 01/02/25 08:53 O2 Del Method Room Air 01/02/25 08:53 O2 Flow Rate 97 12/23/24 18:00 BMI result Body Mass Index 20.1 Gen: in no acute distress HEENT: sclera anicteric, moist mucus membranes Neck: supple Lungs: clear to auscultation bilaterally Heart: regular rate and rhythm, no murmurs Abd: soft, non-tender, non-distended Ext: no edema Skin: warm/well-perfused Neuro: alert, disoriented, moving all extremities, babbling nonsensically Psych: impaired insight Objective Data Active Medications Acetaminophen (Acetaminophen 325 Mg Tablet) 975 mg PO Q6H PRN PRN Reason: Pain, Mild 1-3,fever,headache Last Admin: 01/01/25 12:37 Dose: 975 mg Documented By: ALANA Calcium Carbonate (Calcium Carbonate 750 Mg Tab.Chew) 750 mg PO Q4H PRN PRN Reason: Heartburn Enoxaparin Sodium (Enoxaparin Sodium 40 Mg/0.4 Ml Syringe) 40 mg SUBCUT Q24H [facility] Last Admin: 01/01/25 21:43 Dose: 40 mg Documented By: FLORA Escitalopram Oxalate (Escitalopram Oxalate 10 Mg Tablet) 10 mg PO DAILY [facility] Last Admin: 01/02/25 08:43 Dose: 10 mg Documented By: ALANA Lorazepam (Lorazepam 0.5 Mg Tablet) 0.5 mg PO TID PRN PRN Reason: anxiety/restlessness Magnesium Hydroxide (Milk Of Magnesia 30 Ml Oral.Susp) 30 ml PO DAILY PRN PRN Reason: Constipation Magnesium Oxide (Magnesium Oxide 400 Mg Tablet) 200 mg PO BEDTIME [facility] Last Admin: 01/01/25 21:43 Dose: 200 mg Documented By: FLORA Melatonin (Melatonin 3 Mg Tablet) 6 mg PO BEDTIME PRN PRN Reason: Insomnia Last Admin: 12/29/24 01:21 Dose: 6 mg Documented By: JELANI Multivitamins/Vitamin C (Multivitamin Tablet) 1 tab PO DAILY [facility] Last Admin: 01/02/25 08:43 Dose: 1 tab Documented By: ALANA Ondansetron HCl (Ondansetron Hcl 4 Mg/2 Ml Vial) 4 mg IVPUSH Q8H PRN PRN Reason: Nausea and Vomiting Polyethylene Glycol (Polyethylene Glycol 3350 17 Gm Powd.Pack) 17 gm PO DAILY PRN PRN Reason: Constipation Quetiapine Fumarate (Quetiapine Fumarate 25 Mg Tablet) 25 mg PO TID [facility] Last Admin: 01/02/25 08:43 Dose: 25 mg Documented By: ALANA Sodium Chloride (0.9 % Sodium Chloride Flush 3 Ml Syringe) 3 ml IVFLUSH QSHIFT [facility] Last Admin: 01/02/25 08:40 Dose: Not Given Documented By: ALANA Non-Admin Reason: No Access Tamsulosin HCl (Tamsulosin Hcl 0.4 Mg Capsule) 0.4 mg PO BEDTIME [facility] Last Admin: 01/01/25 21:43 Dose: 0.4 mg Documented By: FLORA Labs 12/20/24 03:40 12/20/24 03:40 Assessment and Plan (1) Delirium: Status: Acute Plan [id number] for 84yo M with dementia recently admitted to [facility] 12/02-12/08 for frequent falls; sent to SNF where he became aggressive to the staff and was sent to the [facility] ED. Was on observation status in the ED since 12/08; then admitted 12/19 to facilitate placement delirium due to advanced dementia - continue escitalopram + trazodone + standing/prn quetiapine; dosages of trazodone + quetiapine increased yesterday - per CARE Team should be on inpatient geriatric psychiatry UTI - completed 7-day course of cefuroxime urinary retention - Sweet placed 12/13, subsequently removed, voiding without difficulty - continue tamsulosin VTE ppx - enoxaparin dispo - not appropriate for [facility]; will proceed with geriatric psychiatry placement as recommended by CARE Team and Psychiatry In my clinical judgment, the patient requires continued inpatient hospitalization for the following reasons: placement, behavior management Total time managing care of this patient today: 25 minutes. Quality Stroke Does the patient have a stroke diagnosis?: No VTE Prior VTE?: No VTE Risk Level:: Medical - moderate - high VTE Device Contraindication: Treatment Not Indicated VTE Drug Contraindication: N/A - Med Ordered
[2025-01-02] MEDS: Acetaminophen 325 MG TABLET 975 MG PO (14:38)
[2025-01-02 15:30] VITALS: BP 112/68; PULSE 99; RESP 16; TEMP 36.6; O2SAT 97
--- NOTE | 2025-01-02 15:42 | P.DS_ITS ---
DS: Providers Provider Date of Service: 01/02/25 Date of admission: 12/19/24 22:31 Date of discharge: 01/02/25 Primary care physician: Haim Perrin MD Consults: 12/11/24 14:47 Consult to Psychiatry Stat Consulting Provider: Jeny Miranda Reason for consultation: medication management, aggitation Has provider been notified: Yes 12/18/24 13:11 ED CARE Team Crisis Consult Stat Comment: Reason for consultation: needs eval 01/01/25 11:47 Inpt CARE Team Crisis Consult Routine Comment: Reason for consultation: [facility]uc psych bed search 01/01/25 12:46 Consult for Sitter Routine Reason for consultation: violence 01/01/25 13:22 Consult to Psychiatry Routine Consulting Provider: [facility] Psych Covering Reason for consultation: dementia with behavioral disturabnace DS: Diagnosis Discharge Diagnosis (1) Major neurocognitive disorder: Status: Acute (2) Dementia with behavioral disturbance: Status: Acute (3) UTI (urinary tract infection): Status: Acute DS: Summary Hospital Course Hospital Course: From the history and physical by the admitting hospitalist, CHINMAY Bennett, 12/19/24: Patient is an 84-year-old male with a past medical history significant for dementia, recently released from [facility] where he was admitted from 12/02-12/08 for frequent falls. Workup was negative and he was sent to a nursing facility where he was aggressive to the staff and sent back to the emergency room. He has been observed in the ED since 12/08, consulted by psych and has been awaiting a bed, UA yesterday with 11-20 WBCs no bacteria, small leuks, large blood (likely traumatic from catheter). Repeat UA today with 6-10 WBS, again small leuks and large blood. He was recently treated for UTI from 12/09- 12/19 with ceftin 500mg BID although UA only with trace leuks and 2+ bacteria at that time, no culture done. On 12/11 the pt developed a fever of 100.7 and was having diarrhea. Workup was negative for C diff, H and H with normocytic anemia, slight elevation of creatinine and BUN and he was given IV fluids. COVID, flu and RSV were negative. He continued to be observed in the ED managed by case management and Psychiatry, awaiting a bed. Psychiatry evaluation suggestive of advanced dementia. On 12/13 patient was retaining urine overnight, straight cath'd and was retaining again with 500 mL in the bladder in the morning, therefore a Sweet was placed and remains. Current labs without leukocytosis, stable H&H, no LUCAS. 84yo M with dementia recently admitted to [facility] 12/02-12/08 for frequent falls; sent to SNF where he became aggressive to the staff and was sent to the [facility] ED. Was on observation status in the ED since 12/08; then admitted 12/19 to facilitate placement. He was seen by Psychiatry in consultation. For management of behavioral disturbance, he was treated with escitalopram, quetiapine, trazodone, and lorazepam. He completed a 7-day course of cefuroxime for UTI. He had transient urinary retention that required short-term Sweet that was removed, after which he was able to void without difficulty. He was transferred to Geriatric Psychiatry for ongoing care. Time Attestation Discharge Coordination Time (in mins): 35 Quality: Safe Use of Opioids Does Pt have an Active Cancer Diagnosis on the Problem List?: No Quality: Stroke Does the patient have a stroke diagnosis?: No Physical Exam Vital Signs: Vital Signs: Last Vital Signs Temp 97.9 F 01/02/25 15:30 Pulse 99 01/02/25 15:30 Resp 16 01/02/25 15:30 BP 112/68 01/02/25 15:30 Pulse Ox 97 01/02/25 15:30 O2 Del Method Room Air 01/02/25 15:30 O2 Flow Rate 97 12/23/24 18:00 BMI result Body Mass Index 20.1 Gen: in no acute distress HEENT: sclera anicteric, moist mucus membranes Neck: supple Lungs: clear to auscultation bilaterally Heart: regular rate and rhythm, no murmurs Abd: soft, non-tender, non-distended Ext: no edema Skin: warm/well-perfused Neuro: alert, disoriented, moving all extremities, babbling nonsensically Psych: impaired insight DS: Data Data Completed and Pending Completed studies during hospitalization [Text1]: Laboratory Results WBC 5.6 X10*3/uL (4.8-10.8) 12/20/24 03:40 RBC 3.61 X10*6/uL (4.60-5.80) L 12/20/24 03:40 Hgb 11.4 g/dl (14.0-18.0) L 12/20/24 03:40 Hct 33.1 % (42.0-52.0) L 12/20/24 03:40 MCV 91.7 fL (80.0-98.0) 12/20/24 03:40 MCH 31.6 pg (27.0-33.0) 12/20/24 03:40 MCHC 34.4 g/dl (31.0-36.0) 12/20/24 03:40 RDW 12.7 % (11.0-16.0) 12/20/24 03:40 Plt Count 231 X10*3/uL (160-400) 12/20/24 03:40 MPV 10.8 fL (9.4-12.4) 12/20/24 03:40 Immature Gran % (Auto) 0.4 % (0.0-0.4) 12/18/24 17:01 Neut % (Auto) 58.7 % (45-73) 12/18/24 17:01 Lymph % (Auto) 22.9 % (20-40) 12/18/24 17:01 Hamlin % (Auto) 9.9 % (2-11) 12/18/24 17:01 Eos % (Auto) 7.5 % (0-4) H 12/18/24 17:01 Baso % (Auto) 0.6 % (0-2) 12/18/24 17:01 Lymph # (Auto) 1.2 X10*3/uL (1.2-4.9) 12/18/24 17:01 Hamlin # (Auto) 0.5 X10*3/uL (0.1-1.2) 12/18/24 17:01 Eos # (Auto) 0.4 X10*3/uL (0.0-0.4) 12/18/24 17:01 Baso # (Auto) 0.0 X10*3/uL (0.0-0.2) 12/18/24 17:01 Abs Immat Gran (auto) 0.02 X10*3/uL (0.00-0.03) 12/18/24 17:01 Absolute Neuts (auto) 3.2 x10*3/uL (2.0-8.3) 12/18/24 17:01 Absolute Nucleated RBC 0.000 X10*3/uL (0.0-0.012) 12/20/24 03:40 Nucleated RBC % (auto) 0.0 /100WBC (0.0-0.2) 12/20/24 03:40 Smear Tech's Comments VERIFIED 12/11/24 07:18 Sodium 139 mmol/L (135-145) 12/20/24 03:40 Potassium 4.5 mmol/L (3.3-5.1) 12/20/24 03:40 Chloride 106 mmol/L (96-108) 12/20/24 03:40 Carbon Dioxide 27 mmol/L (22-29) 12/20/24 03:40 Anion Gap 11 (12-20) L 12/20/24 03:40 BUN 16 mg/dL (9-16) 12/20/24 03:40 Creatinine 0.75 mg/dL (0.5-1.4) 12/20/24 03:40 Estim Creat Clear Calc 67.3 12/20/24 03:40 Estimated GFR > 60 12/20/24 03:40 Random Glucose 88 mg/dL (60-115) 12/20/24 03:40 Calcium 9.1 mg/dL (8.4-10.2) 12/20/24 03:40 Total Bilirubin 0.6 mg/dL (0.0-1.0) 12/18/24 17:01 Direct Bilirubin 0.3 mg/dL (0.0-0.5) 12/11/24 07:18 AST 21 U/L (5-37) 12/18/24 17:01 ALT 19 U/L (0-40) 12/18/24 17:01 Alkaline Phosphatase 94 U/L (39-117) 12/18/24 17:01 Ammonia 29 umol/L (13-55) 12/12/24 14:06 B-Natriuretic Peptide < 10 pg/mL (<100) 12/15/24 10:44 Total Protein 6.7 g/dL (6.5-8.0) 12/18/24 17:01 Albumin 3.6 g/dL (3.5-5.0) 12/18/24 17:01 TSH 3.59 uIU/mL (0.32-4.0) 12/09/24 12:09 Urine Color Yellow 12/19/24 20:36 Urine Appearance Cloudy 12/19/24 20:36 Urine pH 6.5 (5.0-9.0) 12/19/24 20:36 Ur Specific Seneca 1.020 (1.005-1.025) 12/19/24 20:36 Urine Protein 30 (1+) mg/dL (Neg-Trace) H 12/19/24 20:36 Urine Glucose (UA) Negative mg/dL (Negative) 12/19/24 20:36 Urine Ketones Trace mg/dL (Negative) 12/19/24 20:36 Urine Blood Large (3+) (Negative) H 12/19/24 20:36 Urine Nitrite Negative (Negative) 12/19/24 20:36 Ur Leukocyte Esterase Small (1+) (Negative) H 12/19/24 20:36 Urine RBC >20 /HPF (0-2) H 12/19/24 20:36 Urine WBC 6-10 /HPF (0-5) H 12/19/24 20:36 Ur Squamous Epith Cells 3-5 /HPF (0-2) 12/19/24 20:36 Calcium Oxalate Crystal Present 12/19/24 20:36 Other Crystals Present 12/19/24 20:36 Urine Bacteria 1+ (None Seen) 12/19/24 20:36 Hyaline Casts 3-5 /LPF (0-2) 12/19/24 20:36 C. difficile Tox B Gene NEGATIVE (Negative) 12/11/24 07:09 Influenza Type A (PCR) NEGATIVE (Negative) 12/15/24 10:46 Influenza Type B (PCR) NEGATIVE (Negative) 12/15/24 10:46 RSV RNA Qual (PCR) NEGATIVE (Negative) 12/15/24 10:46 SARS-CoV-2 RNA (RT-PCR) NEGATIVE (Negative) 12/15/24 10:46 Impressions Chest X-Ray 12/15/24 09:43 IMPRESSION: No acute cardiopulmonary abnormality. Electronically signed by: Rodri Lawson MD 12/15/2024 10:[address] [facility] Discharge Plan Discharge Patient Disposition: Xfer Psychiatric Hosp Discharge Diagnosis: dementia with behavioral disturbance Referrals: Haim Perrin MD [Primary Care Provider] - Discharge Medications: New quetiapine 25 mg Tablet 25 mg PO TID Qty: 1 0RF lorazepam 0.5 mg Tablet 0.5 mg PO TID PRN (Reason: Anxiety/Restlessness) Qty: 1 0RF tamsulosin 0.4 mg Capsule 0.4 mg PO BEDTIME Qty: 1 0RF Continued trazodone 50 mg tablet 50 mg PO DAILY@1630 escitalopram oxalate 20 mg tablet 10 mg PO DAILY vitamin B complex Capsule 1 cap PO DAILY magnesium oxide 200 mg magnesium Tablet 200 mg PO DAILY@1630 Discharge Orders: Discharge Order (Routine); Ordered 01/02/25 Ordered By: Leora Gibbs Diet: Advance to usual diet Activity on Discharge: As tolerated Stand Alone Forms: Patient Portal Discharge page Print Language: Cape Verdean Care Plan Goals: management of behavioral agitation Health Concerns: dementia with behavioral disturbance Plan of Treatment: transfer to geriatric psychiatry for further care Assessment: See Discharge Summary.
--- NOTE | 2025-01-02 15:44 | MHC.CM.PN ---
DP: PER PSYCH SERVICES, PT WILL DC TO [facility] TODAY.
== END 2025-01-02 17:26 | DRG 884 ==
LOC: HO.ED 12-15 19:19 → HO.EDOVER 12-19 22:48 → HO.S3 12-21 00:07
PROVIDERS: Emergency Medicine; Nurse Practitioner Family; Physician Assistant Medical; Social Worker; Admitting Provider Physician Assistant; Emergency Provider Internal Medicine; PCP Internal Medicine; Visit Provider Family Medicine
DX: F03.918 Unspecified dementia, unspecified severity, with other behavioral disturbance (principal); N39.0 Urinary tract infection, site not specified; F05 Delirium due to known physiological condition; R33.9 Retention of urine, unspecified; Z66 Do not resuscitate; Z20.822 Contact with and (suspected) exposure to COVID-19; R50.9 Fever, unspecified; R53.1 Weakness; Z79.899 Other long term (current) drug therapy
CPT/HCPCS: 0241U; 36415; 71045; 80048; 80053; 80076; 81001; 81003; 82140; 83880; 84443; 85025; 85027; 87086; 87493; 92526; 93005; 97161; 99285; J1650; J2060; J3486; J7120; S9485

== ENCOUNTER → 2024-12-08 17:32 | Outpatient (BNV) | payer MEDICARE, SELFPAY | PROVIDERS: Emergency Provider Internal Medicine; PCP Internal Medicine; Visit Provider Social Worker | DX: F03.90 Unspecified dementia, unspecified severity, without behavioral disturbance, psychotic disturbance, mood disturbance, and anxiety (principal); R41.0 Disorientation, unspecified | CPT/HCPCS: 99285 ==

== ENCOUNTER → 2024-12-08 22:57 | Outpatient (BNV) | payer MEDICARE, SELFPAY | PROVIDERS: Emergency Provider Internal Medicine; PCP Internal Medicine; Visit Provider Internal Medicine | DX: R41.82 Altered mental status, unspecified (principal) | CPT/HCPCS: 93010 ==

== ENCOUNTER → 2024-12-11 06:56 | Outpatient (BNV) | payer MEDICARE, SELFPAY | PROVIDERS: Emergency Provider Internal Medicine; PCP Internal Medicine; Visit Provider Radiology Diagnostic Radiology | DX: J84.9 Interstitial pulmonary disease, unspecified (principal) | CPT/HCPCS: 71045 ==

== ENCOUNTER → 2024-12-15 09:43 | Outpatient (BNV) | payer MEDICARE, SELFPAY | PROVIDERS: Emergency Provider Internal Medicine; PCP Internal Medicine; Visit Provider Radiology Diagnostic Radiology | DX: R05.9 Cough, unspecified (principal) | CPT/HCPCS: 71045 ==

== ENCOUNTER → 2024-12-19 22:31 | Outpatient (BNV) | payer MEDICARE, SELFPAY | PROVIDERS: Admitting Provider Physician Assistant; Emergency Provider Internal Medicine; PCP Internal Medicine; Visit Provider Physician Assistant | DX: F03.90 Unspecified dementia, unspecified severity, without behavioral disturbance, psychotic disturbance, mood disturbance, and anxiety (principal); R41.0 Disorientation, unspecified | CPT/HCPCS: 99222; 99231; 99232 ==

== ENCOUNTER 2025-01-02 17:37 | Inpatient (IN) | payer MEDICARE, SELFPAY ==
[2025-01-02] MEDS: QUEtiapine Fumarate 25 MG TABLET PO (18:47)
--- NOTE | 2025-01-02 18:54 | PC.ADMIT ---
Addendum entered by Isela Pinedo RN 01/02/25 19:16: Pt. currently a 12 B while awaiting HCP paperwork. Original Note: Pt. arrived on unit 18:15 via WC accompanied by [employer] and [employer]. Pt. disoriented to all but self. Anxious and agitated and unable to cooperate with admission process. Changeover with contraband search and skin assmt. conducted with assist of 4. Some slight excoriation to buttocks noted. Incontinent of urine and needing to have a BM and assisted to toilet while being combative and verbally abusive. Required assist of 4 staff for care. Pt. given PRN Seroquel and assisted into duc chair with weighted blanket for soothing. VS assmt. deferred. Dr. Rey contacted for further PRNs.
[2025-01-02] MEDS: QUEtiapine Fumarate 50 MG TABLET PO (19:54)
[2025-01-02] MEDS: traZODone HCL 50 MG TABLET PO ×2 (19:54→22:52)
[2025-01-02 20:00] VITALS: BP 111/58; PULSE 103; TEMP 36.6; O2SAT 96
[2025-01-02 21:18] LABS: Alanine Aminotransferase 16 U/L (0-40); Albumin Level 3.3 g/dL (3.5-5.0); Alkaline Phosphatase 88 U/L (39-117); Anion Gap 12 (12-20); Aspartate Amino Transferase 17 U/L (5-37); Bilirubin Total 0.3 mg/dL (0.0-1.0); Blood Urea Nitrogen 26 mg/dL (9-16); Calcium 8.6 mg/dL (8.4-10.2); Carbon Dioxide 27 mmol/L (22-29); Chloride 108 mmol/L (96-108); Estimated Glomerular Filt Rate > 60; Glucose Fasting 111 mg/dL (60-99); Potassium 4.2 mmol/L (3.3-5.1); Sodium 143 mmol/L (135-145); Total Protein 6.1 g/dL (6.5-8.0)
[2025-01-03] MEDS: QUEtiapine Fumarate 50 MG TABLET PO ×4 (04:25→20:50)
[2025-01-03 08:00] VITALS: BP 130/66; PULSE 88; RESP 16; TEMP 36.4; O2SAT 100
[2025-01-03] MEDS: Escitalopram Oxalate 20 MG TABLET PO (08:20)
[2025-01-03 11:49] LABS: Cholesterol 139 mg/dL (<200); HDL Cholesterol 49 mg/dL (>40); LDL Cholesterol Calculated 81 mg/dL (<100); Triglycerides 46 mg/dL (<150)
[2025-01-03 12:05] LABS: Thyroid Stimulating Hormone 2.59 uIU/mL (0.32-4.0)
[2025-01-03 12:11] LABS: Vitamin B12 388 pg/mL (200-900)
--- NOTE | 2025-01-03 12:49 | P.HPPS_ITS ---
HPI Date of Service: 01/03/25 Chief Complaint: Combative behaviors Sources of Information: patient interviewed, chart reviewed and crisis/core team assessment reviewed HPI Subjective Notes: Conditional Voluntary (HCP signed) Narrative: Mr. Carney is an 84 year-old male with hx of dementia. He had been medically admitted to [facility] from 12/02-12/08/24 for medical work up for frequent falls and discharged to SNF for STR. He was sent back on the same day to [facility] due to combative behaviors. Pertinent labs include CBC with no leukocytosis, normocytic anemia on 12/08, repeat on 12/11 showed mild left shift, no leukocytosis. CMP without electrolyte abnormalities, BUN 15, Cr 0.79, creatinine clearance 63.8, LFT wnl. Repeat CMP on 12/11 showed increase BUN 28, Cr 1.00, mild elevation of LFT AST 62, ALT 78. He appeared to be dehydrated and was given IV lactated Ringer's 1000mls. UA was positive for bacteria, but no nitrites nor leukocytosis, culture was not completed but she was started on ceftin 500mg po BID. EKG with normal sinus rhythm, Qtc 445ms. Chest XR with chronic interstitial lung disease, with questionable interstitial lung edema. Pt was medically admitted for continued care but no acute finding, note that urine culture on 12/19/2024 was negative. He continues to have episodes of combative behaviors mostly in the evening. He is at baseline oriented only to self. He presented with severe expressive and receptive aphasia. He has been on seroquel which was initially decreased. Past Psychiatric History: Inpt: none OP: none PCP prescribing psychotropic medications including olazanpine, seroquel, Medical Evaluation Reviewed: Yes [facility] Medical History Major neurocognitive disorder Delirium Diagnostics Vital Signs (24Hr): Vital Signs - 24 hr 01/02/25 20:00 01/03/25 08:00 Temperature 98 F 97.6 F Pulse Rate 103 H 88 Respiratory Rate 16 Blood Pressure 111/58 L 130/66 Pulse Oximetry 96 100 Oxygen Delivery Method Room Air Room Air Labs 01/02/25 20:59 Labs: Laboratory Results - last 48 hr 01/02/25 01/03/25 20:59 10:48 Sodium 143 Potassium 4.2 Chloride 108 Carbon Dioxide 27 Anion Gap 12 BUN 26 H Creatinine 0.82 Estim Creat Clear Calc TNP Estimated GFR > 60 Fasting Glucose 111 H Calcium 8.6 Total Bilirubin 0.3 AST 17 ALT 16 Alkaline Phosphatase 88 Total Protein 6.1 L Albumin 3.3 L Triglycerides 46 Cholesterol 139 LDL Cholesterol, Calc 81 HDL Cholesterol 49 Vitamin B12 388 TSH 2.59 Meds/Allergies Meds Home Medications ?Medication ?Instructions ?Recorded ?Confirmed ?Type escitalopram oxalate 20 mg tablet 10 mg PO DAILY 12/09/24 12/09/24 History magnesium oxide 200 mg PO DAILY@1630 12/09/24 12/09/24 History trazodone 50 mg tablet 50 mg PO DAILY@1630 12/09/24 12/09/24 History vitamin B complex 1 cap PO DAILY 12/09/24 12/09/24 History Allergies Allergies Allergy/AdvReac Type Severity Reaction Status Date / Time No Known Allergies Allergy Verified 12/08/24 17:54 Mental Status Exam Mental Status Exam Narrative: Appearance: wearing hospital gown, fair hygiene, thin, but not malnourished, in NAD Behavior: pt smiling Psychomotor: no agitation or retardation noted Speech: mumbles, regular tone/rhythm, spontaneous TP: severe expressive and receptive aphasia/ derailed TC: wanting food, to wanting to hold hands and kiss consumer loan underwriter Mood: good Affect: restless, periods of smiling SI: no HI: none VH/AH:none Delusions: none Insight/judgment: impaired x2 Memory/cog: alert, not oriented to place, month year nor situation.severe memory/cog impairments. Assessment & Plan Assessment & Plan (1) Major neurocognitive disorder: Status: Acute Code(s): F03.90 - Unspecified dementia, unspecified severity, without behavioral disturbance, psychotic disturbance, mood disturbance, and anxiety Plan Mr. 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 He continues to have intermittent periods of agitation, noted at this time to be later in the afternoon. Discussed with daughter, Laurie plan to transition to longterm care with hospice. PLAN 1. Admit to S1, CV signed by HCP, 1:1 due to risk for falls. 2. increase seroquel 50mg po TID, prn seroquel 3. aftercare planning. Patient educated on: diagnosis (HCP) and medication risk/benefits Reason for continued inpatient stay Substantial Risk for: inability to function Statement Statement: I have reviewed the history and physical and performed a pertinent examination on my patient. No changes have occurred unless specified. If the History and Physical was not performed prior to admission, the Hospitalist's service will be consulted for completing the admission physical. Time Spent With Patient Time: Total time managing care of this patient today ____ minutes.
[2025-01-03 14:59] VITALS: BMI 20.1
--- NOTE | 2025-01-03 15:02 | MHC.CLN ---
NUTRITION FAMILIAR WITH PATIENT FROM MED/SURG ADM. HEIGHT AND WEIGHT FROM MED/SURG. DIET HAD BEEN GROUND WITH SUPPLEMENTS. CONTINUE GROUND DIET AND ADD ENSURE TID. SUPPLEMENT PROVIDES 1050 KCALS, 60 G PROTEIN. EXCORIATION TO BUTTOCKS NOTED. MONITOR PO INTAKE, WEIGHT AND SKIN INTEGRITY.
[2025-01-03] MEDS: LORazepam 1 MG TABLET PO (17:38)
[2025-01-03 20:00] VITALS: BP 122/69; PULSE 85; RESP 16; TEMP 36.8; O2SAT 97
[2025-01-03] MEDS: traZODone HCL 50 MG TABLET PO (20:48)
--- NOTE | 2025-01-04 10:19 | P.PNPSI_ITS ---
Subjective Subjective Date of Service: 01/04/25 Reason For Visit: Combative behaviors Subjective Notes: Conditional Voluntary Healthcare Proxy: Yes Interim History: Pt slept through the night. He did have episode of combative behaviors, attempting grab staff. He is eating well. He is taking medications. He continues with a one to one due to risk for fall. Speech with severe aphasia. oriented only to self. Mental Status Exam Mental Status Exam Narrative: Appearance: wearing hospital gown, fair hygiene, thin, but not malnourished, in NAD Behavior: pt smiling Psychomotor: no agitation or retardation noted Speech: mumbles, regular tone/rhythm, spontaneous TP: severe expressive and receptive aphasia/ derailed TC: wanting food, to wanting to hold hands and kiss life underwriter Mood: good Affect: restless, periods of smiling SI: no HI: none VH/AH:none Delusions: none Insight/judgment: impaired x2 Memory/cog: alert, not oriented to place, month year nor situation.severe memory/cog impairments. Diagnostics Vital Signs (24Hr): Vital Signs - 24 hr 01/03/25 20:00 Temperature 98.2 F Pulse Rate 85 Respiratory Rate 16 Blood Pressure 122/69 Pulse Oximetry 97 Oxygen Delivery Method Room Air BMI result Body Mass Index 20.1 Labs 01/02/25 20:59 Labs: Laboratory Results - last 48 hr 01/02/25 01/03/25 20:59 10:48 Sodium 143 Potassium 4.2 Chloride 108 Carbon Dioxide 27 Anion Gap 12 BUN 26 H Creatinine 0.82 Estim Creat Clear Calc TNP Estimated GFR > 60 Fasting Glucose 111 H Calcium 8.6 Total Bilirubin 0.3 AST 17 ALT 16 Alkaline Phosphatase 88 Total Protein 6.1 L Albumin 3.3 L Triglycerides 46 Cholesterol 139 LDL Cholesterol, Calc 81 HDL Cholesterol 49 Vitamin B12 388 TSH 2.59 Medications Medications Current Medications Acetaminophen (Acetaminophen 325 Mg Tablet) 650 mg PO Q6H PRN PRN Reason: Headache/Pain, Scale 1-10 Al Hydroxide/Mg Hydroxide (Magnesium Hydrox/Alum Hydrox 30 Ml Oral.Susp) 30 ml PO Q6H PRN PRN Reason: Heartburn/Nausea Escitalopram Oxalate (Escitalopram Oxalate 20 Mg Tablet) 20 mg PO DAILY [facility] Last Admin: 01/03/25 08:20 Dose: 20 mg Magnesium Hydroxide (Milk Of Magnesia 30 Ml Oral.Susp) 30 ml PO DAILY PRN PRN Reason: Constipation Quetiapine Fumarate (Quetiapine Fumarate 50 Mg Tablet) 50 mg PO Q6H PRN PRN Reason: agitation Last Admin: 01/03/25 17:09 Dose: 50 mg Quetiapine Fumarate (Quetiapine Fumarate 50 Mg Tablet) 50 mg PO TID [facility] Last Admin: 01/03/25 20:50 Dose: 50 mg Trazodone HCl (Trazodone Hcl 50 Mg Tablet) 50 mg PO BEDTIME PRN PRN Reason: Insomnia Last Admin: 01/03/25 20:48 Dose: 50 mg Allergies Allergies Allergy/AdvReac Type Severity Reaction Status Date / Time No Known Allergies Allergy Verified 12/08/24 17:54 Assessment & Plan Assessment & Plan (1) Major neurocognitive disorder: Status: Acute Code(s): F03.90 - Unspecified dementia, unspecified severity, without behavioral disturbance, psychotic disturbance, mood disturbance, and anxiety Plan Mr. Burnett is an 84 year-old male with hx of dementia, probably AD. He was brought via EMS same day he went to [facility] due to combative behaviors. He presented with s/s of delirium superimposed on dementia. He was medically admitted for continued care but no acute medical finding. Note that culture was negative for UTI. 01/04/2025 agitation in evening was given ativan 1mg po with good effect. continue seroquel 50mg po TID. no over sedation with current medication. Reason for continued inpatient stay Substantial Risk for: inability to function Time Spent With Patient Time: Total time managing care of this patient today ____ minutes.
[2025-01-04 10:29] VITALS: BP 127/77; PULSE 103; RESP 17; TEMP 36.1; O2SAT 99
[2025-01-04] MEDS: Escitalopram Oxalate 20 MG TABLET PO (10:31)
[2025-01-04] MEDS: QUEtiapine Fumarate 50 MG TABLET PO ×3 (10:31→20:06)
[2025-01-04 14:27] VITALS: BMI 20.3
[2025-01-04] MEDS: QUEtiapine Fumarate 25 MG TABLET PO (15:59)
[2025-01-04] MEDS: LORazepam 1 MG TABLET PO (16:59)
[2025-01-04] MEDS: Acetaminophen 325 MG TABLET 650 MG PO (17:09)
[2025-01-04 20:00] VITALS: BP 112/59; PULSE 91; RESP 16; TEMP 36.6; O2SAT 95
[2025-01-04] MEDS: traZODone HCL 50 MG TABLET PO (20:06)
[2025-01-05 08:40] VITALS: BP 132/63; PULSE 81; RESP 20; TEMP 36.8; O2SAT 98
[2025-01-05] MEDS: QUEtiapine Fumarate 50 MG TABLET PO ×4 (08:40→22:35)
[2025-01-05] MEDS: Escitalopram Oxalate 20 MG TABLET PO (08:41)
[2025-01-05 14:49] VITALS: BMI 20.3
--- NOTE | 2025-01-05 16:24 | P.PNPSI_ITS ---
Subjective Subjective Date of Service: 01/05/25 Reason For Visit: Combative behaviors Interim History: Pt slept through the night. He did have episode of combative behaviors, attempting grab staff. He is eating well. He is taking medications. He continues with a one to one due to risk for fall. Speech with severe aphasia. oriented only to self. Mental Status Exam Mental Status Exam Narrative: Appearance: wearing hospital gown, fair hygiene, thin, but not malnourished, in NAD Behavior: pt smiling Psychomotor: no agitation or retardation noted Speech: mumbles, regular tone/rhythm, spontaneous TP: severe expressive and receptive aphasia/ derailed TC: wanting food, to wanting to hold hands and kiss underwriter Mood: good Affect: restless, periods of smiling SI: no HI: none VH/AH:none Delusions: none Insight/judgment: impaired x2 Memory/cog: alert, not oriented to place, month year nor situation.severe memory/cog impairments. Diagnostics Vital Signs (24Hr): Vital Signs - 24 hr 01/04/25 20:00 01/05/25 08:40 Temperature 97.8 F 98.2 F Pulse Rate 91 81 Respiratory Rate 16 20 Blood Pressure 112/59 L 132/63 Pulse Oximetry 95 98 Oxygen Delivery Method Room Air Room Air BMI result Body Mass Index 20.3 Labs 01/02/25 20:59 Medications Medications Current Medications Acetaminophen (Acetaminophen 325 Mg Tablet) 650 mg PO Q6H PRN PRN Reason: Headache/Pain, Scale 1-10 Last Admin: 01/04/25 17:09 Dose: 650 mg Al Hydroxide/Mg Hydroxide (Magnesium Hydrox/Alum Hydrox 30 Ml Oral.Susp) 30 ml PO Q6H PRN PRN Reason: Heartburn/Nausea Escitalopram Oxalate (Escitalopram Oxalate 20 Mg Tablet) 20 mg PO DAILY [facility] Last Admin: 01/05/25 08:41 Dose: 20 mg Magnesium Hydroxide (Milk Of Magnesia 30 Ml Oral.Susp) 30 ml PO DAILY PRN PRN Reason: Constipation Quetiapine Fumarate (Quetiapine Fumarate 50 Mg Tablet) 50 mg PO Q6H PRN PRN Reason: agitation Last Admin: 01/03/25 17:09 Dose: 50 mg Quetiapine Fumarate (Quetiapine Fumarate 50 Mg Tablet) 50 mg PO TID [facility] Last Admin: 01/05/25 15:32 Dose: 50 mg Trazodone HCl (Trazodone Hcl 50 Mg Tablet) 50 mg PO BEDTIME PRN PRN Reason: Insomnia Last Admin: 01/04/25 20:06 Dose: 50 mg Allergies Allergies Allergy/AdvReac Type Severity Reaction Status Date / Time No Known Allergies Allergy Verified 12/08/24 17:54 Assessment & Plan Assessment & Plan (1) Major neurocognitive disorder: Status: Acute Code(s): F03.90 - Unspecified dementia, unspecified severity, without behavioral disturbance, psychotic disturbance, mood disturbance, and anxiety Plan Mr. 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 He continues to have intermittent periods of agitation, noted at this time to be later in the afternoon. Discussed with daughterLaurie plan to transition to technician terminal and repeater care with hospice. PLAN 1. Admit to S1, CV signed by HCP, 1:1 due to risk for falls. 2. increase seroquel 50mg po TID, prn seroquel 3. aftercare planning. Reason for continued inpatient stay Substantial Risk for: inability to function Time Spent With Patient Time: Total time managing care of this patient today ____ minutes.
[2025-01-05 21:03] VITALS: BP 153/63; PULSE 90; RESP 16; TEMP 36.5; O2SAT 98
[2025-01-05] MEDS: traZODone HCL 50 MG TABLET PO (22:35)
[2025-01-06 08:00] VITALS: BP 114/60; PULSE 96; RESP 16; TEMP 36.6; O2SAT 99
[2025-01-06] MEDS: QUEtiapine Fumarate 50 MG TABLET PO ×5 (10:04→23:07)
[2025-01-06] MEDS: Escitalopram Oxalate 20 MG TABLET PO (10:05)
--- NOTE | 2025-01-06 15:27 | HO.PSYCHPN ---
Subjective Subjective Date of Service: 01/06/25 Reason For Visit: Combative behaviors Interim History: Met with patient; discussed with team; reviewed chart Staff reports patient was restless yesterday evening which seems to be typical; p.rcourtney Fierrol helped. Today more calm, however overall NOT eating very much On approach Patient disorganized. On approach, he says he is hungry; then he looks at senior grant writer and sitter and says I thought you to were going after me... Taking medications 1:1 due to risk for fall. Speech with severe aphasia. oriented only to self. Mental Status Exam Mental Status Exam Narrative: Appearance: wearing casual, fair hygiene, thin, but not malnourished, in NAD Behavior: Calmly lying in bed, awake, alert Psychomotor: no agitation or retardation noted Speech: Some clear sentences, but mumbles, regular tone/rhythm, spontaneous TP: severe expressive and receptive aphasia/ derailed TC: Saying he is hungry Mood: Anxious Affect: Anxious SI: none express HI: none express VH/AH:none Delusions: none Insight/judgment: impaired x2 Memory/cog: alert, not oriented to place, month year nor situation.severe memory/cog impairments. Diagnostics Vital Signs (24Hr): Vital Signs - 24 hr 01/05/25 21:03 01/06/25 08:00 Temperature 97.7 F 97.9 F Pulse Rate 90 96 Respiratory Rate 16 16 Blood Pressure 153/63 H 114/60 Pulse Oximetry 98 99 Oxygen Delivery Method Room Air Room Air BMI result Body Mass Index 20.3 Labs 01/02/25 20:59 Medications Medications Current Medications Acetaminophen (Acetaminophen 325 Mg Tablet) 650 mg PO Q6H PRN PRN Reason: Headache/Pain, Scale 1-10 Last Admin: 01/04/25 17:09 Dose: 650 mg Al Hydroxide/Mg Hydroxide (Magnesium Hydrox/Alum Hydrox 30 Ml Oral.Susp) 30 ml PO Q6H PRN PRN Reason: Heartburn/Nausea Escitalopram Oxalate (Escitalopram Oxalate 20 Mg Tablet) 20 mg PO DAILY [facility] Last Admin: 01/06/25 10:05 Dose: 20 mg Magnesium Hydroxide (Milk Of Magnesia 30 Ml Oral.Susp) 30 ml PO DAILY PRN PRN Reason: Constipation Quetiapine Fumarate (Quetiapine Fumarate 50 Mg Tablet) 50 mg PO Q6H PRN PRN Reason: agitation Last Admin: 01/05/25 22:35 Dose: 50 mg Quetiapine Fumarate (Quetiapine Fumarate 50 Mg Tablet) 50 mg PO TID [facility] Last Admin: 01/06/25 14:48 Dose: 50 mg Trazodone HCl (Trazodone Hcl 50 Mg Tablet) 50 mg PO BEDTIME PRN PRN Reason: Insomnia Last Admin: 01/05/25 22:35 Dose: 50 mg Allergies Allergies Allergy/AdvReac Type Severity Reaction Status Date / Time No Known Allergies Allergy Verified 12/08/24 17:54 Assessment & Plan Assessment & Plan (1) Major neurocognitive disorder: Status: Acute Code(s): F03.90 - Unspecified dementia, unspecified severity, without behavioral disturbance, psychotic disturbance, mood disturbance, and anxiety Plan Mr. 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 He continues to have intermittent periods of agitation, noted at this time to be later in the afternoon. Discussed with daughterLaurie plan to transition to skilled nursing care with hospice. 01/06 Staff reports patient was restless yesterday evening which seems to be typical; p.r.n. Seroquel helped. Today more calm, however overall NOT eating very much On approach Patient disorganized. On approach, he says he is hungry; then he looks at senior grant writer and sitter and says I thought you to were going after me... Taking medications PLAN 1. Admit to S1, CV signed by HCP, 1:1 due to risk for falls. 2. increase seroquel 50mg po TID, prn seroquel 3. aftercare planning. Patient educated on: diagnosis Informed Consent: does not understand Reason for continued inpatient stay Substantial Risk for: inability to function Time Spent With Patient Time: Total time managing care of this patient today ____ minutes.
[2025-01-06 19:57] VITALS: BP 126/62; PULSE 77; RESP 16; O2SAT 98
[2025-01-06 19:58] VITALS: TEMP 36.6
[2025-01-06] MEDS: traZODone HCL 50 MG TABLET PO (21:20)
[2025-01-07] MEDS: QUEtiapine Fumarate 50 MG TABLET PO ×4 (09:27→20:44)
[2025-01-07] MEDS: Escitalopram Oxalate 20 MG TABLET PO (09:27)
[2025-01-07 09:30] VITALS: BP 122/65; PULSE 88; RESP 18; TEMP 36.7; O2SAT 99
--- NOTE | 2025-01-07 10:35 | MHC.SLORD ---
Speech Language Pathology Order Status: Pt sitting in day room on duc psych floor with RAILROAD HAND. Pt alert to self, speaking intermittently with dysarthric/minimally intelligible production. Pt drinking josiah yousuf through straw, crunching ice cups from cup. No reported issues with PO tolerance, intake is reduced however. PORK CUTLET MAKER continues to follow.
[2025-01-07] MEDS: OLANZapine 2.5 MG TABLET PO (12:21)
--- NOTE | 2025-01-07 17:06 | P.PNPSI_ITS ---
Subjective Subjective Date of Service: 01/07/25 Reason For Visit: Combative behaviors Interim History: Met with patient; discussed with team Difficult with which to engage. On approach patient not answering telegraphic typewriter mechanic but talking out loud about nonsensical things; got up from bed and started walking towards the wall saying he wanted a cup of pickles... Mentioned a whore house... But patient is oblivious to surroundings. Also today Patient got agitated, striking out at staff without provocation; P.r.n. Seroquel helped only a little bit Mental Status Exam Mental Status Exam Narrative: Appearance: wearing casual, fair hygiene, thin, no acute distress Orientation: Self only Behavior: Wandering around room aimlessly, awake, alert Psychomotor: no agitation or retardation noted Speech: Spontaneous talk, Some clear sentences, but mumbles, expressive and receptive aphasia/ derailed TP: Tangential TC: Various random things Mood: Anxious Affect: Appears Anxious SI: none express HI: none express VH/AH:none Delusions: none Insight/judgment: impaired Memory/cog: alert to self only Diagnostics Vital Signs (24Hr): Vital Signs - 24 hr 01/06/25 19:57 01/06/25 19:58 01/07/25 09:30 Temperature 97.8 F 98.1 F Pulse Rate 77 88 Respiratory Rate 16 18 Blood Pressure 126/62 122/65 Pulse Oximetry 98 99 Oxygen Delivery Method Room Air Room Air BMI result Body Mass Index 20.3 Labs 01/02/25 20:59 Medications Medications Current Medications Acetaminophen (Acetaminophen 325 Mg Tablet) 650 mg PO Q6H PRN PRN Reason: Headache/Pain, Scale 1-10 Last Admin: 01/04/25 17:09 Dose: 650 mg Al Hydroxide/Mg Hydroxide (Magnesium Hydrox/Alum Hydrox 30 Ml Oral.Susp) 30 ml PO Q6H PRN PRN Reason: Heartburn/Nausea Escitalopram Oxalate (Escitalopram Oxalate 20 Mg Tablet) 20 mg PO DAILY [facility] Last Admin: 01/07/25 09:27 Dose: 20 mg Magnesium Hydroxide (Milk Of Magnesia 30 Ml Oral.Susp) 30 ml PO DAILY PRN PRN Reason: Constipation Quetiapine Fumarate (Quetiapine Fumarate 50 Mg Tablet) 50 mg PO Q6H PRN PRN Reason: agitation Last Admin: 01/07/25 11:27 Dose: 50 mg Quetiapine Fumarate (Quetiapine Fumarate 50 Mg Tablet) 50 mg PO TID [facility] Last Admin: 01/07/25 14:28 Dose: 50 mg Trazodone HCl (Trazodone Hcl 50 Mg Tablet) 50 mg PO BEDTIME PRN PRN Reason: Insomnia Last Admin: 01/06/25 21:20 Dose: 50 mg Allergies Allergies Allergy/AdvReac Type Severity Reaction Status Date / Time No Known Allergies Allergy Verified 12/08/24 17:54 Assessment & Plan Assessment & Plan (1) Major neurocognitive disorder: Status: Acute Code(s): F03.90 - Unspecified dementia, unspecified severity, without behavioral disturbance, psychotic disturbance, mood disturbance, and anxiety Plan Mr. 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 He continues to have intermittent periods of agitation, noted at this time to be later in the afternoon. Discussed with daughterLaurie plan to transition to detention care with hospice. 01/06 Staff reports patient was restless yesterday evening which seems to be typical; p.r.n. Seroquel helped. Today more calm, however overall NOT eating very much On approach Patient disorganized. On approach, he says he is hungry; then he looks at telegraphic typewriter mechanic and sitter and says I thought you to were going after me... Taking medications 01/07 no changes to presentation and patient remains Difficult with which to engage. On approach patient not answering telegraphic typewriter mechanic but talking out loud about nonsensical things; got up from bed and started walking towards the wall saying he wanted a cup of pickles... Mentioned a whore house... But patient is oblivious to surroundings. Also today Patient got agitated, striking out at staff without provocation; P.r.n. Seroquel helped only a little bit; tried Zyprexa 2.5 mg which did not seem to make any difference -not eating all that much PLAN 1. Admit to S1, CV signed by HCP, 1:1 due to risk for falls. 2. increase seroquel 50mg po TID, prn seroquel 3. aftercare planning. Patient educated on: diagnosis Informed Consent: does not understand Reason for continued inpatient stay Substantial Risk for: inability to function Time Spent With Patient Time: Total time managing care of this patient today ____ minutes.
[2025-01-07] MEDS: LORazepam 0.5 MG TABLET PO (18:09)
[2025-01-07 20:00] VITALS: BP 126/61; PULSE 84; RESP 18; TEMP 36.5; O2SAT 99
[2025-01-07] MEDS: Acetaminophen 325 MG TABLET 650 MG PO (20:44)
[2025-01-07] MEDS: traZODone HCL 50 MG TABLET PO (20:44)
--- NOTE | 2025-01-08 09:32 | P.PNPSI_ITS ---
Subjective Subjective Date of Service: 01/08/25 Reason For Visit: Combative behaviors Subjective Notes: Conditional Voluntary Healthcare Proxy: Yes Interim History: Pt slept most of the night. But he does have periods of combative behaviors, attempting to swing at staff when they try to redirect him. I spoke with his daughter, Laurie who is HCP, to discuss increasing seroquel to 75mg po TID, before considering switching to a different antipsychotic all together. She agreed. Some difficulty clearing secretions, seen by ST, continue NDD2/thin liquids. Diagnostics Vital Signs (24Hr): Vital Signs - 24 hr 01/07/25 20:00 Temperature 97.7 F Pulse Rate 84 Respiratory Rate 18 Blood Pressure 126/61 Pulse Oximetry 99 Oxygen Delivery Method Room Air BMI result Body Mass Index 20.3 Labs 01/02/25 20:59 Medications Medications Current Medications Acetaminophen (Acetaminophen 325 Mg Tablet) 650 mg PO Q6H PRN PRN Reason: Headache/Pain, Scale 1-10 Last Admin: 01/07/25 20:44 Dose: 650 mg Al Hydroxide/Mg Hydroxide (Magnesium Hydrox/Alum Hydrox 30 Ml Oral.Susp) 30 ml PO Q6H PRN PRN Reason: Heartburn/Nausea Escitalopram Oxalate (Escitalopram Oxalate 20 Mg Tablet) 20 mg PO DAILY [facility] Last Admin: 01/07/25 09:27 Dose: 20 mg Lorazepam (Lorazepam 0.5 Mg Tablet) 0.5 mg PO TID PRN PRN Reason: agitation Last Admin: 01/07/25 18:09 Dose: 0.5 mg Magnesium Hydroxide (Milk Of Magnesia 30 Ml Oral.Susp) 30 ml PO DAILY PRN PRN Reason: Constipation Quetiapine Fumarate (Quetiapine Fumarate 50 Mg Tablet) 50 mg PO TID [facility] Last Admin: 01/07/25 20:44 Dose: 50 mg Quetiapine Fumarate (Quetiapine Fumarate 50 Mg Tablet) 50 mg PO Q6H PRN PRN Reason: mild agitation Trazodone HCl (Trazodone Hcl 50 Mg Tablet) 50 mg PO BEDTIME PRN PRN Reason: Insomnia Last Admin: 01/07/25 20:44 Dose: 50 mg Allergies Allergies Allergy/AdvReac Type Severity Reaction Status Date / Time No Known Allergies Allergy Verified 12/08/24 17:54 Assessment & Plan Assessment & Plan (1) Major neurocognitive disorder: Status: Acute Code(s): F03.90 - Unspecified dementia, unspecified severity, without behavioral disturbance, psychotic disturbance, mood disturbance, and anxiety Plan Mr. 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 He continues to have intermittent periods of agitation, noted at this time to be later in the afternoon. Discussed with daughter, Laurie plan to transition to merchant mill utility worker care with hospice. 01/06 Staff reports patient was restless yesterday evening which seems to be typical; p.r.n. Seroquel helped. Today more calm, however overall NOT eating very much On approach Patient disorganized. On approach, he says he is hungry; then he looks at engineering technical writer and sitter and says I thought you to were going after me... Taking medications 01/08 continue 1:1 for safety, increase seroquel 75mg po TID, prn seroquel continue ativan 0.5mg po B ID prn agitation. Reason for continued inpatient stay Substantial Risk for: inability to function Time Spent With Patient Time: Total time managing care of this patient today ____ minutes.
[2025-01-08] MEDS: QUEtiapine Fumarate 50 MG TABLET PO (11:34)
[2025-01-08] MEDS: Escitalopram Oxalate 20 MG TABLET PO (11:34)
--- NOTE | 2025-01-08 12:00 | MHC.SLORD ---
Speech Language Pathology Order Status: Pt walking hallway with WOOD HEEL FLAP INSERTER when CUTTER OPERATOR TILE arrived. WOOD HEEL FLAP INSERTER reported pt often refuses PO d/t confusion when being assisted, which results in pt misunderstanding intentions of others, and he refuses (i.e. when trying to drink from a spoon). Physiological function of swallow unremarkable, dysphagia persists secondary to behavioral challenges. CUTTER OPERATOR TILE continues to follow.
--- NOTE | 2025-01-08 14:57 | MHC.CLN ---
F/U DIET= GROUND WITH ENSURE TID (1050 KCALS, 60 G PROTEIN).. PO INTAKE USUALLY POOR. MONITOR PO INTAKE. FOLLOW FOR PLAN OF CARE.
[2025-01-08] MEDS: QUEtiapine Fumarate 25 MG TABLET 75 MG PO ×2 (16:30→20:06)
[2025-01-08 20:07] VITALS: BP 117/60; PULSE 97; TEMP 36.9; O2SAT 96
[2025-01-08] MEDS: traZODone HCL 50 MG TABLET PO (21:51)
[2025-01-08] MEDS: QUEtiapine Fumarate 100 MG TABLET PO (21:51)
[2025-01-09 08:00] VITALS: BP 104/58; PULSE 70; RESP 18; TEMP 36.8; O2SAT 99
[2025-01-09] MEDS: Escitalopram Oxalate 20 MG TABLET PO (08:25)
[2025-01-09] MEDS: QUEtiapine Fumarate 25 MG TABLET 75 MG PO ×3 (08:25→21:45)
--- NOTE | 2025-01-09 11:22 | HO.PSYCHPN ---
Subjective Subjective Date of Service: 01/09/25 Reason For Visit: Combative behaviors Subjective Notes: Conditional Voluntary Healthcare Proxy: Yes Interim History: Pt slept most of the night. He continues on one to one due to fall risk. Speech mostly unintelligible due to severe aphasia. Much less combative behaviors. Some excessive secretions noted. He has been followed by ST. He does take medications, ativan does help w/agitation. Mental Status Exam Mental Status Exam Narrative: Appearance: wearing casual, fair hygiene, thin, no acute distress Orientation: Self only Behavior: Wandering around room aimlessly, awake, alert Psychomotor: no agitation or retardation noted Speech: Spontaneous talk, Some clear sentences, but mumbles, expressive and receptive aphasia/ derailed TP: Tangential TC: Various random things Mood: Anxious Affect: Appears Anxious SI: none express HI: none express VH/AH:none Delusions: none Insight/judgment: impaired Memory/cog: alert to self only Diagnostics Vital Signs (24Hr): Vital Signs - 24 hr 01/08/25 20:07 01/09/25 08:00 Temperature 98.5 F 98.2 F Pulse Rate 97 70 Respiratory Rate 18 Blood Pressure 117/60 104/58 L Pulse Oximetry 96 99 Oxygen Delivery Method Room Air Room Air BMI result Body Mass Index 20.3 Labs 01/02/25 20:59 Medications Medications Current Medications Acetaminophen (Acetaminophen 325 Mg Tablet) 650 mg PO Q6H PRN PRN Reason: Headache/Pain, Scale 1-10 Last Admin: 01/07/25 20:44 Dose: 650 mg Al Hydroxide/Mg Hydroxide (Magnesium Hydrox/Alum Hydrox 30 Ml Oral.Susp) 30 ml PO Q6H PRN PRN Reason: Heartburn/Nausea Escitalopram Oxalate (Escitalopram Oxalate 20 Mg Tablet) 20 mg PO DAILY [facility] Last Admin: 01/09/25 08:25 Dose: 20 mg Lorazepam (Lorazepam 0.5 Mg Tablet) 0.5 mg PO BID PRN PRN Reason: agitation Magnesium Hydroxide (Milk Of Magnesia 30 Ml Oral.Susp) 30 ml PO DAILY PRN PRN Reason: Constipation Quetiapine Fumarate (Quetiapine Fumarate 25 Mg Tablet) 75 mg PO TID [facility] Last Admin: 01/09/25 08:25 Dose: 75 mg Quetiapine Fumarate (Quetiapine Fumarate 100 Mg Tablet) 100 mg PO Q8H PRN PRN Reason: mild agitation Last Admin: 01/08/25 21:51 Dose: 100 mg Trazodone HCl (Trazodone Hcl 50 Mg Tablet) 50 mg PO BEDTIME PRN PRN Reason: Insomnia Last Admin: 01/08/25 21:51 Dose: 50 mg Trazodone HCl (Trazodone Hcl 50 Mg Tablet) 50 mg PO BEDTIME [facility] Allergies Allergies Allergy/AdvReac Type Severity Reaction Status Date / Time No Known Allergies Allergy Verified 12/08/24 17:54 Assessment & Plan Assessment & Plan (1) Major neurocognitive disorder: Status: Acute Code(s): F03.90 - Unspecified dementia, unspecified severity, without behavioral disturbance, psychotic disturbance, mood disturbance, and anxiety Plan Mr. 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 He continues to have intermittent periods of agitation, noted at this time to be later in the afternoon. Discussed with daughterLaurie plan to transition to jail care with hospice. 01/06 Staff reports patient was restless yesterday evening which seems to be typical; p.r.n. Seroquel helped. Today more calm, however overall NOT eating very much On approach Patient disorganized. On approach, he says he is hungry; then he looks at life insurance underwriter and sitter and says I thought you to were going after me... Taking medications 01/08 continue 1:1 for safety, increase seroquel 75mg po TID, prn seroquel continue ativan 0.5mg po B ID prn agitation. 01/09 continue tx. Reason for continued inpatient stay Substantial Risk for: inability to function Time Spent With Patient Time: Total time managing care of this patient today ____ minutes.
[2025-01-09 20:00] VITALS: BP 110/56; PULSE 73; RESP 18; TEMP 36.8; O2SAT 97
[2025-01-09] MEDS: Acetaminophen 325 MG TABLET 650 MG PO (21:43)
[2025-01-09] MEDS: traZODone HCL 50 MG TABLET PO (21:44)
[2025-01-10 08:00] VITALS: BP 126/58; PULSE 107
[2025-01-10] MEDS: Escitalopram Oxalate 20 MG TABLET PO (09:14)
[2025-01-10] MEDS: QUEtiapine Fumarate 25 MG TABLET 75 MG PO ×3 (09:14→20:58)
--- NOTE | 2025-01-10 09:19 | P.PNPSI_ITS ---
Subjective Subjective Date of Service: 01/10/25 Reason For Visit: Combative behaviors Subjective Notes: Conditional Voluntary Healthcare Proxy: Yes Interim History: Pt slept most of the night. He continues on one to one due to fall risk. Pt presents as more pleasant. Less combative behaviors. He is sleeping through the night. aphasia. some increase secretions. Medication Compliance: Yes Mental Status Exam Mental Status Exam Narrative: Appearance: wearing casual, fair hygiene, thin, no acute distress Orientation: Self only Behavior: Wandering around room aimlessly, awake, alert Psychomotor: no agitation or retardation noted Speech: Spontaneous talk, Some clear sentences, but mumbles, expressive and receptive aphasia/ derailed TP: Tangential TC: Various random things Mood: Anxious Affect: Appears Anxious SI: none express HI: none express VH/AH:none Delusions: none Insight/judgment: impaired Memory/cog: alert to self only Diagnostics Vital Signs (24Hr): Vital Signs - 24 hr 01/09/25 20:00 Temperature 98.3 F Pulse Rate 73 Respiratory Rate 18 Blood Pressure 110/56 L Pulse Oximetry 97 Oxygen Delivery Method Room Air BMI result Body Mass Index 20.3 Labs 01/02/25 20:59 Medications Medications Current Medications Acetaminophen (Acetaminophen 325 Mg Tablet) 650 mg PO Q6H PRN PRN Reason: Headache/Pain, Scale 1-10 Last Admin: 01/09/25 21:43 Dose: 650 mg Al Hydroxide/Mg Hydroxide (Magnesium Hydrox/Alum Hydrox 30 Ml Oral.Susp) 30 ml PO Q6H PRN PRN Reason: Heartburn/Nausea Escitalopram Oxalate (Escitalopram Oxalate 20 Mg Tablet) 20 mg PO DAILY [facility] Last Admin: 01/09/25 08:25 Dose: 20 mg Lorazepam (Lorazepam 0.5 Mg Tablet) 0.5 mg PO BID PRN PRN Reason: agitation Magnesium Hydroxide (Milk Of Magnesia 30 Ml Oral.Susp) 30 ml PO DAILY PRN PRN Reason: Constipation Quetiapine Fumarate (Quetiapine Fumarate 25 Mg Tablet) 75 mg PO TID [facility] Last Admin: 01/09/25 21:45 Dose: 75 mg Quetiapine Fumarate (Quetiapine Fumarate 100 Mg Tablet) 100 mg PO Q8H PRN PRN Reason: mild agitation Last Admin: 01/08/25 21:51 Dose: 100 mg Trazodone HCl (Trazodone Hcl 50 Mg Tablet) 50 mg PO BEDTIME PRN PRN Reason: Insomnia Last Admin: 01/08/25 21:51 Dose: 50 mg Trazodone HCl (Trazodone Hcl 50 Mg Tablet) 50 mg PO BEDTIME [facility] Last Admin: 01/09/25 21:44 Dose: 50 mg Allergies Allergies Allergy/AdvReac Type Severity Reaction Status Date / Time No Known Allergies Allergy Verified 12/08/24 17:54 Assessment & Plan Assessment & Plan (1) Major neurocognitive disorder: Status: Acute Code(s): F03.90 - Unspecified dementia, unspecified severity, without behavioral disturbance, psychotic disturbance, mood disturbance, and anxiety Plan Mr. 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 He continues to have intermittent periods of agitation, noted at this time to be later in the afternoon. Discussed with daughterLaurie plan to transition to senior care care with hospice. 01/06 Staff reports patient was restless yesterday evening which seems to be typical; p.r.n. Seroquel helped. Today more calm, however overall NOT eating very much On approach Patient disorganized. On approach, he says he is hungry; then he looks at marketing copywriter and sitter and says I thought you to were going after me... Taking medications 01/08 continue 1:1 for safety, increase seroquel 75mg po TID, prn seroquel continue ativan 0.5mg po B ID prn agitation. 01/09 continue tx. 01/10 continue tx. Reason for continued inpatient stay Substantial Risk for: inability to function Time Spent With Patient Time: Total time managing care of this patient today ____ minutes.
--- NOTE | 2025-01-10 12:58 | MHC.SLORD ---
Speech Language Pathology Order Status: ROCKET ENGINE COMPONENT MECHANIC arrived at floor after lunch, no concerns reported by RNs about pt PO tolerance, though intake remains reduced as noted in reports. ROCKET ENGINE COMPONENT MECHANIC will continue to follow as indicated.
--- NOTE | 2025-01-10 15:03 | MHC.CLN ---
F/U DIET= GROUND WITH ENSURE TID (1050 KCALS, 60 G PROTEIN).. PO INTAKE USUALLY POOR, BITES AND SIPS. ENCOURAGE INTAKE AT MEALS AND SNACKS ABLE. MONITOR PO INTAKE. FOLLOW FOR PLAN OF CARE.
[2025-01-10 20:00] VITALS: BP 107/58; PULSE 82; RESP 18; TEMP 36.4; O2SAT 96
[2025-01-10] MEDS: traZODone HCL 50 MG TABLET PO (20:58)
[2025-01-11 08:00] VITALS: BP 104/58; PULSE 82; RESP 18; TEMP 36.7; O2SAT 96
[2025-01-11] MEDS: Escitalopram Oxalate 20 MG TABLET PO (08:30)
[2025-01-11] MEDS: QUEtiapine Fumarate 25 MG TABLET 75 MG PO ×3 (08:30→20:39)
[2025-01-11 15:57] VITALS: BMI 21.1
--- NOTE | 2025-01-11 16:58 | HO.PSYCHPN ---
Subjective Subjective Date of Service: 01/11/25 Reason For Visit: Combative behaviors Subjective Notes: Conditional Voluntary Healthcare Proxy: Yes Interim History: Pt slept most of the night. He continues on one to one due to fall risk. Pt presents as more pleasant. He is visible during the day. No signs of sedation. Less combative behaviors. He is sleeping through the night. aphasia. some increase secretions. Mental Status Exam Mental Status Exam Narrative: Appearance: wearing casual, fair hygiene, thin, no acute distress Orientation: Self only Behavior: Wandering around room aimlessly, awake, alert Psychomotor: no agitation or retardation noted Speech: Spontaneous talk, Some clear sentences, but mumbles, expressive and receptive aphasia/ derailed TP: Tangential TC: Various random things Mood: Anxious Affect: Appears Anxious SI: none express HI: none express VH/AH:none Delusions: none Insight/judgment: impaired Memory/cog: alert to self only Diagnostics Vital Signs (24Hr): Vital Signs - 24 hr 01/10/25 20:00 01/11/25 08:00 Temperature 97.6 F 98.0 F Pulse Rate 82 82 Respiratory Rate 18 18 Blood Pressure 107/58 L 104/58 L Pulse Oximetry 96 96 Oxygen Delivery Method Room Air Room Air BMI result Body Mass Index 21.1 Labs 01/02/25 20:59 Medications Medications Current Medications Acetaminophen (Acetaminophen 325 Mg Tablet) 650 mg PO Q6H PRN PRN Reason: Headache/Pain, Scale 1-10 Last Admin: 01/09/25 21:43 Dose: 650 mg Al Hydroxide/Mg Hydroxide (Magnesium Hydrox/Alum Hydrox 30 Ml Oral.Susp) 30 ml PO Q6H PRN PRN Reason: Heartburn/Nausea Escitalopram Oxalate (Escitalopram Oxalate 20 Mg Tablet) 20 mg PO DAILY [facility] Last Admin: 01/11/25 08:30 Dose: 20 mg Lorazepam (Lorazepam 0.5 Mg Tablet) 0.5 mg PO BID PRN PRN Reason: agitation Magnesium Hydroxide (Milk Of Magnesia 30 Ml Oral.Susp) 30 ml PO DAILY PRN PRN Reason: Constipation Quetiapine Fumarate (Quetiapine Fumarate 25 Mg Tablet) 75 mg PO TID [facility] Last Admin: 01/11/25 15:11 Dose: 75 mg Quetiapine Fumarate (Quetiapine Fumarate 100 Mg Tablet) 100 mg PO Q8H PRN PRN Reason: mild agitation Last Admin: 01/08/25 21:51 Dose: 100 mg Trazodone HCl (Trazodone Hcl 50 Mg Tablet) 50 mg PO BEDTIME PRN PRN Reason: Insomnia Last Admin: 01/08/25 21:51 Dose: 50 mg Trazodone HCl (Trazodone Hcl 50 Mg Tablet) 50 mg PO BEDTIME [facility] Last Admin: 01/10/25 20:58 Dose: 50 mg Allergies Allergies Allergy/AdvReac Type Severity Reaction Status Date / Time No Known Allergies Allergy Verified 12/08/24 17:54 Assessment & Plan Assessment & Plan (1) Major neurocognitive disorder: Status: Acute Code(s): F03.90 - Unspecified dementia, unspecified severity, without behavioral disturbance, psychotic disturbance, mood disturbance, and anxiety Plan Mr. 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 He continues to have intermittent periods of agitation, noted at this time to be later in the afternoon. Discussed with daughterLaurie plan to transition to half-way care with hospice. 01/06 Staff reports patient was restless yesterday evening which seems to be typical; p.r.n. Seroquel helped. Today more calm, however overall NOT eating very much On approach Patient disorganized. On approach, he says he is hungry; then he looks at movie writer and sitter and says I thought you to were going after me... Taking medications 01/08 continue 1:1 for safety, increase seroquel 75mg po TID, prn seroquel continue ativan 0.5mg po B ID prn agitation. 01/09 continue tx. 01/10 continue tx.seen by hospice [facility], does not meet criteria for it. 01/11 continue tx. Reason for continued inpatient stay Substantial Risk for: inability to function Time Spent With Patient Time: Total time managing care of this patient today ____ minutes.
[2025-01-11] MEDS: Acetaminophen 325 MG TABLET 650 MG PO (18:43)
[2025-01-11] MEDS: traZODone HCL 50 MG TABLET PO ×2 (20:39→23:35)
[2025-01-11 21:29] VITALS: BP 110/55; PULSE 77; RESP 16; TEMP 36.1; O2SAT 97
[2025-01-11] MEDS: QUEtiapine Fumarate 100 MG TABLET PO (23:35)
[2025-01-12 08:00] VITALS: BP 107/58; PULSE 72; RESP 18; TEMP 35.9; O2SAT 98
[2025-01-12] MEDS: QUEtiapine Fumarate 25 MG TABLET 75 MG PO ×3 (11:00→20:36)
[2025-01-12] MEDS: Escitalopram Oxalate 20 MG TABLET PO (11:01)
--- NOTE | 2025-01-12 15:19 | MHC.CLN ---
F/U DIET= GROUND WITH ENSURE TID (1050 KCALS, 60 G PROTEIN). PO INTAKE USUALLY POOR, BITES AND SIPS. CONTINUE TO MONITOR FOR PLAN OF CARE.
--- NOTE | 2025-01-12 15:54 | MHC.SLORD ---
Speech Language Pathology Order Status: Per RN, further ST intervention no longer indicated, as patient likely getting d/c Mon on hospice. Please re-refer with any further concern.
--- NOTE | 2025-01-12 17:31 | P.PNPSI_ITS ---
Subjective Subjective Date of Service: 01/12/25 Reason For Visit: Combative behaviors Subjective Notes: Conditional Voluntary Interim History: Slept about 3 hrs, which is different from previous nights when he has been sleeping through the night. He was during the day pleasant, not combative, continues on one to one due to risk for fall. He is taking medications as prescribed. Mental Status Exam Mental Status Exam Narrative: Appearance: wearing casual, fair hygiene, thin, no acute distress Orientation: Self only Behavior: Wandering around room aimlessly, awake, alert Psychomotor: no agitation or retardation noted Speech: Spontaneous talk, Some clear sentences, but mumbles, expressive and receptive aphasia/ derailed TP: Tangential TC: Various random things Mood: Anxious Affect: Appears Anxious SI: none express HI: none express VH/AH:none Delusions: none Insight/judgment: impaired Memory/cog: alert to self only Diagnostics Vital Signs (24Hr): Vital Signs - 24 hr 01/11/25 21:29 01/12/25 08:00 Temperature 96.9 F 96.7 F L Pulse Rate 77 72 Respiratory Rate 16 18 Blood Pressure 110/55 L 107/58 L Pulse Oximetry 97 98 Oxygen Delivery Method Room Air Room Air BMI result Body Mass Index 21.1 Labs 01/02/25 20:59 Medications Medications Current Medications Acetaminophen (Acetaminophen 325 Mg Tablet) 650 mg PO Q6H PRN PRN Reason: Headache/Pain, Scale 1-10 Last Admin: 01/11/25 18:43 Dose: 650 mg Al Hydroxide/Mg Hydroxide (Magnesium Hydrox/Alum Hydrox 30 Ml Oral.Susp) 30 ml PO Q6H PRN PRN Reason: Heartburn/Nausea Escitalopram Oxalate (Escitalopram Oxalate 20 Mg Tablet) 20 mg PO DAILY [facility] Last Admin: 01/12/25 11:01 Dose: 20 mg Lorazepam (Lorazepam 0.5 Mg Tablet) 0.5 mg PO BID PRN PRN Reason: agitation Magnesium Hydroxide (Milk Of Magnesia 30 Ml Oral.Susp) 30 ml PO DAILY PRN PRN Reason: Constipation Quetiapine Fumarate (Quetiapine Fumarate 25 Mg Tablet) 75 mg PO TID [facility] Last Admin: 01/12/25 15:11 Dose: 75 mg Quetiapine Fumarate (Quetiapine Fumarate 100 Mg Tablet) 100 mg PO Q8H PRN PRN Reason: mild agitation Last Admin: 01/11/25 23:35 Dose: 100 mg Trazodone HCl (Trazodone Hcl 50 Mg Tablet) 50 mg PO BEDTIME PRN PRN Reason: Insomnia Last Admin: 01/11/25 23:35 Dose: 50 mg Trazodone HCl (Trazodone Hcl 50 Mg Tablet) 50 mg PO BEDTIME [facility] Last Admin: 01/11/25 20:39 Dose: 50 mg Allergies Allergies Allergy/AdvReac Type Severity Reaction Status Date / Time No Known Allergies Allergy Verified 12/08/24 17:54 Assessment & Plan Assessment & Plan (1) Major neurocognitive disorder: Status: Acute Code(s): F03.90 - Unspecified dementia, unspecified severity, without behavioral disturbance, psychotic disturbance, mood disturbance, and anxiety Plan Mr. 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 He continues to have intermittent periods of agitation, noted at this time to be later in the afternoon. Discussed with daughter, Laurie plan to transition to senior quantity surveyor care with hospice. 01/06 Staff reports patient was restless yesterday evening which seems to be typical; p.r.n. Seroquel helped. Today more calm, however overall NOT eating very much On approach Patient disorganized. On approach, he says he is hungry; then he looks at commercial lines underwriter and sitter and says I thought you to were going after me... Taking medications 01/08 continue 1:1 for safety, increase seroquel 75mg po TID, prn seroquel continue ativan 0.5mg po B ID prn agitation. 01/09 continue tx. 01/10 continue tx.seen by hospice [facility], does not meet criteria for it. 01/11 continue tx. 01/12 continue tx. plan for dc 01/15/25 Reason for continued inpatient stay Substantial Risk for: inability to function Time Spent With Patient Time: Total time managing care of this patient today ____ minutes.
[2025-01-12 20:00] VITALS: BP 111/58; PULSE 76; RESP 16; TEMP 36.8; O2SAT 94
[2025-01-12] MEDS: traZODone HCL 50 MG TABLET PO (20:36)
[2025-01-13 08:00] VITALS: BP 115/60; PULSE 66; RESP 18; TEMP 36.7; O2SAT 95
[2025-01-13] MEDS: Escitalopram Oxalate 20 MG TABLET PO (08:37)
[2025-01-13] MEDS: QUEtiapine Fumarate 25 MG TABLET 75 MG PO ×3 (08:37→20:57)
--- NOTE | 2025-01-13 17:06 | HO.PSYCHPN ---
Subjective Subjective Date of Service: 01/13/25 Reason For Visit: Combative behaviors Interim History: sleeping, easily rousable. pleasant, no questions, concerns, complaints. per staff, D/C to home hospice wednesday. poor PO intake. Mental Status Exam Mental Status Exam Narrative: Appearance: wearing casual, fair hygiene, thin, no acute distress Orientation: Self only Behavior: sleeping in bed, rousable Psychomotor: no agitation or retardation noted Speech: Spontaneous talk, Some clear sentences, but mumbles, expressive and receptive aphasia/ derailed TP: Tangential TC: Various random things Mood: Anxious Affect: Appears Anxious SI: none express HI: none express VH/AH:none Delusions: none Insight/judgment: impaired Memory/cog: alert to self only Diagnostics Vital Signs (24Hr): Vital Signs - 24 hr 01/12/25 20:00 01/13/25 08:00 Temperature 98.2 F 98.1 F Pulse Rate 76 66 Respiratory Rate 16 18 Blood Pressure 111/58 L 115/60 Pulse Oximetry 94 95 Oxygen Delivery Method Room Air Room Air BMI result Body Mass Index 21.1 Labs 01/02/25 20:59 Medications Medications Current Medications Acetaminophen (Acetaminophen 325 Mg Tablet) 650 mg PO Q6H PRN PRN Reason: Headache/Pain, Scale 1-10 Last Admin: 01/11/25 18:43 Dose: 650 mg Al Hydroxide/Mg Hydroxide (Magnesium Hydrox/Alum Hydrox 30 Ml Oral.Susp) 30 ml PO Q6H PRN PRN Reason: Heartburn/Nausea Escitalopram Oxalate (Escitalopram Oxalate 20 Mg Tablet) 20 mg PO DAILY [facility] Last Admin: 01/13/25 08:37 Dose: 20 mg Lorazepam (Lorazepam 0.5 Mg Tablet) 0.5 mg PO BID PRN PRN Reason: agitation Magnesium Hydroxide (Milk Of Magnesia 30 Ml Oral.Susp) 30 ml PO DAILY PRN PRN Reason: Constipation Quetiapine Fumarate (Quetiapine Fumarate 25 Mg Tablet) 75 mg PO TID [facility] Last Admin: 01/13/25 14:19 Dose: 75 mg Quetiapine Fumarate (Quetiapine Fumarate 100 Mg Tablet) 100 mg PO Q8H PRN PRN Reason: mild agitation Last Admin: 01/11/25 23:35 Dose: 100 mg Trazodone HCl (Trazodone Hcl 50 Mg Tablet) 50 mg PO BEDTIME PRN PRN Reason: Insomnia Last Admin: 01/11/25 23:35 Dose: 50 mg Trazodone HCl (Trazodone Hcl 50 Mg Tablet) 50 mg PO BEDTIME [facility] Last Admin: 01/12/25 20:36 Dose: 50 mg Allergies Allergies Allergy/AdvReac Type Severity Reaction Status Date / Time No Known Allergies Allergy Verified 12/08/24 17:54 Assessment & Plan Assessment & Plan (1) Major neurocognitive disorder: Status: Acute Code(s): F03.90 - Unspecified dementia, unspecified severity, without behavioral disturbance, psychotic disturbance, mood disturbance, and anxiety Plan Mr. 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 He continues to have intermittent periods of agitation, noted at this time to be later in the afternoon. Discussed with daughterLaurie plan to transition to director long term care care with hospice. 01/06 Staff reports patient was restless yesterday evening which seems to be typical; p.r.n. Seroquel helped. Today more calm, however overall NOT eating very much On approach Patient disorganized. On approach, he says he is hungry; then he looks at casualty underwriter and sitter and says I thought you to were going after me... Taking medications 01/08 continue 1:1 for safety, increase seroquel 75mg po TID, prn seroquel continue ativan 0.5mg po B ID prn agitation. 01/09 continue tx. 01/10 continue tx.seen by hospice [facility], does not meet criteria for it. 01/11 continue tx. 01/12 continue tx. plan for dc 01/15/2501/13: stable. DC wednesday to home hospice. continue current mgmt. Reason for continued inpatient stay Substantial Risk for: inability to function Time Spent With Patient Time: Total time managing care of this patient today ____ minutes.
[2025-01-13 20:00] VITALS: BP 111/57; PULSE 78; RESP 16; TEMP 36.6; O2SAT 97
[2025-01-13] MEDS: traZODone HCL 50 MG TABLET PO (20:57)
[2025-01-14 08:00] VITALS: BP 127/61; PULSE 76; RESP 18; TEMP 36.8; O2SAT 97
[2025-01-14] MEDS: Escitalopram Oxalate 20 MG TABLET PO (08:12)
[2025-01-14] MEDS: QUEtiapine Fumarate 25 MG TABLET 75 MG PO ×3 (08:12→20:00)
--- NOTE | 2025-01-14 16:55 | HO.PSYCHPN ---
Subjective Subjective Date of Service: 01/14/25 Reason For Visit: Combative behaviors Interim History: lying in bed, responsive to loud voice. mix of non sequiturs and brief relevant replies. per staff, poor PO intake. hospice care. discharging tomorrow. Mental Status Exam Mental Status Exam Narrative: Appearance: wearing casual, fair hygiene, thin, no acute distress Orientation: Self only Behavior: sleeping in bed, rousable Psychomotor: no agitation or retardation noted Speech: Spontaneous talk, Some clear sentences, but mumbles, expressive and receptive aphasia/ derailed TP: Tangential TC: Various random things Mood: Anxious Affect: Appears Anxious SI: none express HI: none express VH/AH:none Delusions: none Insight/judgment: impaired Memory/cog: alert to self only Diagnostics Vital Signs (24Hr): Vital Signs - 24 hr 01/13/25 20:00 01/14/25 08:00 Temperature 97.8 F 98.2 F Pulse Rate 78 76 Respiratory Rate 16 18 Blood Pressure 111/57 L 127/61 Pulse Oximetry 97 97 Oxygen Delivery Method Room Air Room Air BMI result Body Mass Index 21.1 Labs 01/02/25 20:59 Medications Medications Current Medications Acetaminophen (Acetaminophen 325 Mg Tablet) 650 mg PO Q6H PRN PRN Reason: Headache/Pain, Scale 1-10 Last Admin: 01/11/25 18:43 Dose: 650 mg Al Hydroxide/Mg Hydroxide (Magnesium Hydrox/Alum Hydrox 30 Ml Oral.Susp) 30 ml PO Q6H PRN PRN Reason: Heartburn/Nausea Escitalopram Oxalate (Escitalopram Oxalate 20 Mg Tablet) 20 mg PO DAILY [facility] Last Admin: 01/14/25 08:12 Dose: 20 mg Lorazepam (Lorazepam 0.5 Mg Tablet) 0.5 mg PO BID PRN PRN Reason: agitation Magnesium Hydroxide (Milk Of Magnesia 30 Ml Oral.Susp) 30 ml PO DAILY PRN PRN Reason: Constipation Quetiapine Fumarate (Quetiapine Fumarate 25 Mg Tablet) 75 mg PO TID [facility] Last Admin: 01/14/25 15:12 Dose: 75 mg Quetiapine Fumarate (Quetiapine Fumarate 100 Mg Tablet) 100 mg PO Q8H PRN PRN Reason: mild agitation Last Admin: 01/11/25 23:35 Dose: 100 mg Trazodone HCl (Trazodone Hcl 50 Mg Tablet) 50 mg PO BEDTIME PRN PRN Reason: Insomnia Last Admin: 01/11/25 23:35 Dose: 50 mg Trazodone HCl (Trazodone Hcl 50 Mg Tablet) 50 mg PO BEDTIME [facility] Last Admin: 01/13/25 20:57 Dose: 50 mg Allergies Allergies Allergy/AdvReac Type Severity Reaction Status Date / Time No Known Allergies Allergy Verified 12/08/24 17:54 Assessment & Plan Assessment & Plan (1) Major neurocognitive disorder: Status: Acute Code(s): F03.90 - Unspecified dementia, unspecified severity, without behavioral disturbance, psychotic disturbance, mood disturbance, and anxiety Plan Mr. 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 He continues to have intermittent periods of agitation, noted at this time to be later in the afternoon. Discussed with daughterLaurie plan to transition to terminal operations supervisor care with hospice. 01/06 Staff reports patient was restless yesterday evening which seems to be typical; p.r.n. Seroquel helped. Today more calm, however overall NOT eating very much On approach Patient disorganized. On approach, he says he is hungry; then he looks at engineering technical writer and sitter and says I thought you to were going after me... Taking medications 01/08 continue 1:1 for safety, increase seroquel 75mg po TID, prn seroquel continue ativan 0.5mg po B ID prn agitation. 01/09 continue tx. 01/10 continue tx.seen by hospice [facility], does not meet criteria for it. 01/11 continue tx. 01/12 continue tx. plan for dc 01/15/2501/13: stable. DC wednesday to home hospice. continue current mgmt. 01/14: as for yesterday. discharge tomorrow. Reason for continued inpatient stay Substantial Risk for: inability to function Time Spent With Patient Time: Total time managing care of this patient today ____ minutes.
[2025-01-14 20:00] VITALS: BP 115/58; PULSE 75; RESP 18; TEMP 36.6; O2SAT 99
[2025-01-14] MEDS: traZODone HCL 50 MG TABLET PO (20:01)
[2025-01-14] MEDS: LORazepam 0.5 MG TABLET PO (23:53)
[2025-01-14] MEDS: QUEtiapine Fumarate 100 MG TABLET PO (23:53)
--- NOTE | 2025-01-15 09:29 | PM.PSYDC ---
DS: Providers Provider Date of Service: 01/15/25 Date of admission: 01/02/25 17:37 Date of discharge: 01/15/25 Primary care physician: Unknown Physician Discharging clinician: Jeny Miranda DS: Diagnosis Discharge Diagnosis (1) Major neurocognitive disorder: Status: Acute DS: Medications Discharge Medications Home Medications: Home Medications ?Medication ?Instructions ?Recorded ?Confirmed escitalopram oxalate 20 mg tablet 10 mg PO DAILY 12/09/24 12/09/24 magnesium oxide 200 mg PO DAILY@1630 12/09/24 12/09/24 trazodone 50 mg tablet 50 mg PO DAILY@1630 12/09/24 12/09/24 vitamin B complex 1 cap PO DAILY 12/09/24 12/09/24 Previous Rx's ?Medication ?Instructions ?Recorded lorazepam 0.5 mg tablet 0.5 mg PO TID PRN 01/02/25 Anxiety/Restlessness #1 tab quetiapine 25 mg tablet 25 mg PO TID #1 tab 01/02/25 tamsulosin 0.4 mg capsule 0.4 mg PO BEDTIME #1 cap 01/02/25 Mental Status Exam Mental Status Exam Narrative: Appearance: wearing casual, fair hygiene, thin, no acute distress Behavior:calm Psychomotor: no agitation or retardation noted Speech: Spontaneous talk, Some clear sentences, but mumbles, expressive and receptive aphasia/ derailed TP: aphasia TC: Various random things Mood: Anxiou Affect: calm SI: none express HI: none express VH/AH:none Delusions: none Insight/judgment: impaired x 2 Memory/cog: alert, oriented to self only DS: Summary Hospital Course Hospital Course: Mr. Carney is an 84 year-old male with hx of dementia. He had been medically admitted to [facility] from 12/02-12/08/24 for medical work up for frequent falls and discharged to SNF for STR. He was sent back on the same day to [facility] ED due to combative behaviors. Pertinent labs include CBC with no leukocytosis, normocytic anemia on 12/08, repeat on 12/11 showed mild left shift, no leukocytosis. CMP without electrolyte abnormalities, BUN 15, Cr 0.79, creatinine clearance 63.8, LFT wnl. Repeat CMP on 12/11 showed increase BUN 28, Cr 1.00, mild elevation of LFT AST 62, ALT 78. He appeared to be dehydrated and was given IV lactated Ringer's 1000mls. UA was positive for bacteria, but no nitrites nor leukocytosis, culture was not completed but she was started on ceftin 500mg po BID. EKG with normal sinus rhythm, Qtc 445ms. Chest XR with chronic interstitial lung disease, with questionable interstitial lung edema. Pt was medically admitted for continued care but no acute finding, note that urine culture on 12/19/2024 was negative. He continues to have episodes of combative behaviors mostly in the evening. He is at baseline oriented only to self. He presented with severe expressive and receptive aphasia. He has been on seroquel which was initially decreased. Past Psychiatric History: Inpt: none OP: none PCP prescribing psychotropic medications including olazanpine, seroquel, HOSPITAL COURSE On the unit, pt was admitted on a CV signed by HCP. He presented with intermittent episodes of agitation when direct care was being provided. He is oriented only to self. He has severe expressive and receptive aphasia. He was maintain on a one to one due to risk for fall. We discussed risks, benefits and alternative treatment options. He was continue on seroquel which was titrated to 75mg po TID. He tolerated this medication well without over sedation nor signs of EPS. He was visible during the day. His affect presented as much more pleasant and less impulsive or reactive. He continued on lexapro 20mg po daily. He was added trazodone for sleep at bedtime. He did not have disruptive behaviors nor need for chemical restraint during this admission. He was taking medications as prescribed. His sleep was variable. most nights he was sleeping through the night but he did have nights were it was difficult for him to sleep more than 3-4hrs. His appetite was fair. Status at Discharge Cognitive/behavioral status at discharge: Pt ambulates on his own but needs to have someone close by as he is high risk for falls. He was alert, oriented only to self. Aphasia. No aggression towards self or others. No overt delusional content reported. He does confabulate. No signs of psychosis. Functional status at discharge: independent ambulation Overall status at discharge: patient is back to baseline Time Spent with Patient Time attestation: Total time managing care of this patient today ___40_ minutes. Time spent: Greater than 30 minutes Discharge Plan Discharge Anticipated Discharge Date/Time: 01/15/25 09:32 Patient Disposition: Home, Self-Care Discharge Diagnosis: Major Neurocognitive Disorder AD Referrals: [facility] [Other] - 01/15/25 [facility] Dr Perrin [Other] - 1 Week Discharge Medications: New lorazepam 0.5 mg Tablet 0.5 mg PO BID PRN (Reason: agitation) Qty: 60 0RF escitalopram oxalate 20 mg Tablet 20 mg PO DAILY Qty: 30 0RF quetiapine 50 mg tablet 50 mg PO TID Qty: 90 0RF quetiapine [Seroquel] 25 mg tablet 25 mg PO TID Qty: 90 0RF Rx Instructions: in addition to 50mg TID trazodone 100 mg tablet 100 mg PO BEDTIME Qty: 30 0RF Continued tamsulosin 0.4 mg Capsule 0.4 mg PO BEDTIME Qty: 30 0RF Discontinued trazodone 50 mg tablet 50 mg PO DAILY@1630 escitalopram oxalate 20 mg tablet 10 mg PO DAILY vitamin B complex Capsule 1 cap PO DAILY magnesium oxide 200 mg magnesium Tablet 200 mg PO DAILY@1630 quetiapine 25 mg Tablet 25 mg PO TID Qty: 1 0RF lorazepam 0.5 mg Tablet 0.5 mg PO TID PRN (Reason: Anxiety/Restlessness) Qty: 1 0RF Discharge Orders: Discharge Order (Routine); Ordered 01/15/25 Ordered By: Jeny Miranda Diet: Advance to usual diet Activity on Discharge: As tolerated Stand Alone Forms: Patient Portal Discharge page Print Language: Irish Care Plan Goals: 1. Maintain mood 2. No aggression towards self or other Health Concerns: Follow up with PCP for routine care Plan of Treatment: 1. medications administered by VNA or family 2. Go to nearest ED or call 911 in event of emergency Assessment: Pt with brighter, non labile affect. No SI/HI. No psychosis or delusions. confabulation. expressive/receptive aphasia.
[2025-01-15 09:58] VITALS: BP 125/89; PULSE 89; RESP 18; TEMP 36.7; O2SAT 97
[2025-01-15] MEDS: Escitalopram Oxalate 20 MG TABLET PO (10:01)
[2025-01-15] MEDS: QUEtiapine Fumarate 25 MG TABLET 75 MG PO (10:01)
[2025-01-15] MEDS: LORazepam 0.5 MG TABLET PO (12:18)
== END 2025-01-15 13:20 | disposition home or self-care (01) | DRG 57 ==
PROVIDERS: Admitting Provider Family Medicine; Visit Provider Social Worker
DX: G31.09 Other frontotemporal neurocognitive disorder (principal); R47.01 Aphasia; F02.811 Dementia in other diseases classified elsewhere, unspecified severity, with agitation; Z79.899 Other long term (current) drug therapy
CPT/HCPCS: 36415; 80053; 80061; 82607; 84443

== ENCOUNTER → 2025-01-02 17:37 | Outpatient (BNV) | payer MEDICARE, SELFPAY | PROVIDERS: Admitting Provider Family Medicine; Visit Provider Social Worker | DX: F03.90 Unspecified dementia, unspecified severity, without behavioral disturbance, psychotic disturbance, mood disturbance, and anxiety (principal) | CPT/HCPCS: 90792; 99231; 99232 ==